=== PATIENT | female | born 1955 | race Caucasian/White ===

== ENCOUNTER 2019-12-25 09:46 | Outpatient (CLI) | payer OTHER, SELFPAY ==
--- NOTE | ~2019-12-25 | MM_ITS ---
EXAMINATION: MM screening [facility] BI w zamzam HISTORY: Screening mammogram TECHNIQUE: Craniocaudal and mediolateral oblique 3-D tomosynthesis images were obtained and synthetic 2-D images were generated. CAD analysis was submitted and interpreted. COMPARISON: 12/08/2018, 12/05/2017, 09/22/2016 bilateral digital screening mammogram examinations BREAST PARENCHYMAL COMPOSITION: There are scattered areas of fibroglandular density. FINDINGS: There is no evidence of suspicious mass, calcification, or architectural distortion to sugg est malignancy in either breast. There has been no suspicious interval change. IMPRESSION: 1. No mammographic evidence of malignancy. 2. Recommend routine screening mammography in one year. BI-RADS Category 1: Negative Reviewed, dictated and finalized at location A.
== END 2019-12-25 09:47 | disposition home or self-care (01) ==
LOC: ANHIMG 09:49
PROVIDERS: PCP Family Medicine; Visit Provider Obstetrics & Gynecology
DX: Z12.31 Encounter for screening mammogram for malignant neoplasm of breast (principal)
CPT/HCPCS: 77063; 77067

== ENCOUNTER 2021-02-26 09:57 | Outpatient (CLI) | payer OTHER, SELFPAY ==
--- NOTE | ~2021-02-26 | MM_ITS ---
EXAMINATION: MM screening [facility] BI w zamzam HISTORY: Screening TECHNIQUE: Craniocaudal and mediolateral oblique 3-D tomosynthesis images were obtained and synthetic 2-D images were generated. CAD analysis was submitted and interpreted. COMPARISON: Comparison to multiple prior studies sequentially, with oldest reviewed study dated 06/09. BREAST PARENCHYMAL COMPOSITION: There are scattered areas of fibroglandular density. FINDINGS: There is no evidence of suspicious mass, calcification, or architectural distortion to sugg est malignancy in either breast. There has been no suspicious interval change. IMPRESSION: 1. No mammographic evidence of malignancy. 2. Recommend routine screening mammography in one year. BI-RADS Category 1: Negative Reviewed, dictated and finalized at location A.
== END 2021-02-26 09:58 | disposition home or self-care (01) ==
LOC: ANHIMG 09:59
PROVIDERS: PCP Family Medicine; Visit Provider Obstetrics & Gynecology
DX: Z12.31 Encounter for screening mammogram for malignant neoplasm of breast (principal)
CPT/HCPCS: 77063; 77067

== ENCOUNTER 2022-03-03 09:54 | Outpatient (CLI) | payer OTHER, SELFPAY ==
--- NOTE | ~2022-03-03 | MM_ITS ---
EXAMINATION: MM screening [facility] BI w zamzam HISTORY: Screening mammogram TECHNIQUE: Craniocaudal and mediolateral oblique 3-D tomosynthesis images were obtained and synthetic 2-D images were generated. CAD analysis was submitted and interpreted. COMPARISON: 02/26/2021, 12/25/2019, 01/04/2019 bilateral screening mammogram examinations BREAST PARENCHYMAL COMPOSITION: There are scattered areas of fibroglandular density. FINDINGS: There is no evidence of suspicious mass, calcification, or architectural distortion to sugg est malignancy in either breast. There has been no suspicious interval change. IMPRESSION: 1. No mammographic evidence of malignancy. 2. Recommend routine screening mammography in one year. BI-RADS Category 1: Negative Reviewed, dictated and finalized at location A.
--- NOTE | ~2022-03-03 | DEXA_ITS ---
Bone Density Report Name: FRANCINE CHAND Age: 66 Sex: Female Ethnicity: White Date of : 1955 Indication: postmenopausal; screening for osteoporosis; Referring Provider: SIRI ADAMSON Study: Bone densitometry was performed. Exam Date: March 03, 2022 Accession number: [id number] Bone Density: Region BMD T-score Z-score Classification AP Spine(L2, L3, L4) 1.549 4.3 6.1 Normal Femoral Neck (Left) 0.883 0.3 1.8 Normal Total Hip (Left) 1.145 1.7 2.9 Normal Femoral Neck (Right) 0.922 0.7 2.1 Normal Total Hip (Right) 1.119 1.4 2.6 Normal Total Hip Mean 1.132 1.6 2.8 Normal World Health Organization criteria for BMD impression classify patients as: Normal (T-score at or above -1.0), Osteopenia (T-score between -1.0 and -2.5), or Osteoporosis (T-score at or below -2.5). 10-year Fracture Risk: FRAX not reported because: All T-scores for Spine Total, Hip Total, Femoral Neck at or above -1.0 Previous Exams: Region Exam Age BMD T-score BMD Change BMD Change Date g/cm2 vs Baseline vs Previous AP Spine (L2-L4) 03/03/2022 66 1.549 4.3 -0.012 (-0.8%) -0.012 (-0.8%) 06/27/2015 59 1.561 4.4 Total Hip(Left) 03/03/2022 66 1.145 1.7 -0.002 (-0.2%) -0.002 (-0.2%) 06/27/2015 59 1.147 1.7 Total Hip(Right) 03/03/2022 66 1.119 1.4 0.004 (0.4%) 0.004 (0.4%) 06/27/2015 59 1.114 1.4 *Denotes significance at 95% confidence level, LSC for AP Spine = 0.022 g/cm2, LSC for Total Hip = 0.027 g/cm2 Clinical Information Provided by Patient: Has used the following medications: Vitamin D Patient maximum height was 63 Menopause Age: 44 No regular weight bearing exercise Drinks caffeinated beverages Onset of menses at age 14 Number of children 0 Impression: The patient has normal bone mass. No significant bone loss was observed. Discussion: BONE DENSITY IS ABOVE THE MINIMUM DESIRABLE LEVEL AT ALL SKELETAL SITES TESTED. This patient?s bone mineral density is above the minimum desirable level (T-score -1.0 or better) at all sites measured. The patient should follow a healthful lifestyle (good nutrition with adequate calcium and vitamin D, and appropriate weight-bearing exercise). Follow-Up: Consider repeating this study in 5 years or sooner if there is some new clinical indication. Reported by: BELINDA on 03/03/2022 10:23:00 AM. Reviewed, dictated and finalized at alicia
== END 2022-03-03 09:55 | disposition home or self-care (01) ==
LOC: ANHIMG 09:55
PROVIDERS: PCP Family Medicine; Visit Provider Obstetrics & Gynecology
DX: Z12.31 Encounter for screening mammogram for malignant neoplasm of breast (principal); Z78.0 Asymptomatic menopausal state
CPT/HCPCS: 77063; 77067; 77080

== ENCOUNTER 2023-03-07 07:45 | Outpatient (CLI) | payer MEDICARE, SELFPAY ==
--- NOTE | ~2023-03-07 | MM_ITS ---
EXAMINATION: MM screening [facility] BI w zamzam HISTORY: Screening mammogram TECHNIQUE: Craniocaudal and mediolateral oblique 3-D tomosynthesis images were obtained and synthetic 2-D images were generated. CAD analysis was submitted and interpreted. COMPARISON: 03/03/2022, 02/26/2021, 12/25/2019 BREAST PARENCHYMAL COMPOSITION:There are scattered areas of fibroglandular density. FINDINGS: No suspicious mass, calcification, or architectural distortion are identified in either damien ast to suggest malignancy. There has been no suspicious interval change. IMPRESSION: No mammographic evidence of malignancy. Recommend routine screening mammography in one year. BI-RADS Category 1: Negative Reviewed, dictated and finalized at location .
== END 2023-03-07 07:46 | disposition home or self-care (01) ==
LOC: ANHIMG 07:46
PROVIDERS: PCP Family Medicine; Visit Provider Obstetrics & Gynecology
DX: Z12.31 Encounter for screening mammogram for malignant neoplasm of breast (principal)
CPT/HCPCS: 77063; 77067

== ENCOUNTER 2023-06-27 09:39 | Outpatient (CLI) | payer MEDICARE, SELFPAY ==
--- NOTE | 2023-07-02 17:26 | WPDPFTINT ---
PFT Procedure Performed PFT Procedure Performed Spirometry w/o Bronchodil PFT Interpretation DOS: 06/27/2023 REQUESTING: Kieran Allison APRN REASON FOR TESTING: shortness of breath PULMONARY FUNCTION TESTS Repeat ability of the FEV1 spirometry maneuver is Grade A, with optimal patient effort and cooperation. Spirometry: The FEV1 is 1.64 L, 72% predicted, mildly decreased. The FVC is 2.31 L, 79%, low end of normal. The FEV1/FVC ratio is 71%, in the normal range, no evidence of airflow obstruction. No bronchodilator was given. Flow volume loop: There were 4 flow volume loops attempted, and the final 3 were recorded. The last flow volume loop was normal. IMPRESSION: This spirometry without bronchodilator shows mild decrease in FEV1 without airflow obstruction. Compared to a full PFT on 12/30/2016 at [facility], her current FEV1 and FVC have decreased more than expected since the prior testing. The current FEV1 is 72%, 1.64 L, compared to the prior FEV1 2.07 L, 87% predicted. FVC was 2.66 L, 91%,and the current FVC is 2.31 L, 79%, a significant decrease. The FEV1/ FVC ratio was 78%, normal; current FEV1 / FVC ratio is 71%, low end of normal. The former flow volume loop showed flattening of the inspiratory limb. The current inspiratory limb is normal. THe prior study had lung volumes and DLCO, not performed on this test. In 2017, total lung capacity was 4.14 L, 88% predicted, normal. Residual volume was 1.31 L, 75%, slightly reduced. RV/TLC was 0.32, normal. There was increased airway resistance 373% predicted. DLCO was 70% predicted, and DLCO/ VA showed correction of diffusion for alveolar volume. The impression on the study was normal spirometry, normal lung volumes, no restriction or obstruction. Lashanda Cedeño MD
== END 2023-06-27 09:40 | disposition home or self-care (01) ==
PROVIDERS: PCP Family Medicine; Visit Provider Nurse Practitioner Adult Health
DX: R06.02 Shortness of breath (principal); R06.00 Dyspnea, unspecified
CPT/HCPCS: 94375

== ENCOUNTER 2023-07-25 08:06 | Outpatient (CLI) | payer MEDICARE, SELFPAY ==
--- NOTE | 2023-07-25 09:13 | ECG_ITS ---
Measurements Intervals [place] Rate: 77 P: 50 MS: 140 QRS: 49 QRSD: 103 T: 34 QT: 354 QTc: 402 Interpretive Statements SINUS RHYTHM BASELINE ARTIFACT NORMAL ECG COMPARED TO ECG 05/25/2019 11:41:35 NO SIGNIFICANT CHANGES Electronically Signed On 07-25-2023 17:14:10 DATASTAGE DEVELOPER by Mio Denise M.D.
[2023-07-25 09:50] LABS: Basophils Absolute Auto 0.1 K/mm3 (0.0-0.1); Basophils Percent Auto 0.7 % (0.2-1.2); Eosinophils Absolute Auto 0.2 K/mm3 (0-0.3); Eosinophils Percent Auto 2.7 % (0-4.4); Hematocrit 46.5 % (37.0-47.0); Hemoglobin 14.9 g/dL (12.0-15.0); Immature Granulocyte Absolute 0.02 K/mm3 (0.00-0.031); Immature Granulocyte Percent A 0.2 % (0-0.5); Lymphocytes Absolute Auto 2.27 K/mm3 (0.9-3.2); Lymphocytes Percent Auto 27.5 % (18.3-44.2); Mean Corpuscular Hemoglobin 28.7 pg (26-34); Mean Corpuscular Volume 89.6 fl (80-100); Mean Platelet Volume 10.2 fl (7.4-10.4); Monocytes Absolute Auto 0.6 K/mm3 (0.1-0.6); Monocytes Percent Auto 6.9 % (2.6-8.5); Neutrophils Absolute Auto 5.1 K/mm3 (1.3-6.7); Platelet Count Result 224 k/mm3 (150-375); Red Blood Count 5.19 M/mm3 (4.2-5.4); Red Cell Distribution Width 14.9 % (11.5-14.5); White Blood Count 8.3 K/mm3 (4.5-10.0)
[2023-07-25 10:53] LABS: Urine Cotinine NEGATIVE
== END 2023-07-25 08:07 | disposition home or self-care (01) ==
LOC: ANHSURGERY 08:09
PROVIDERS: PCP Family Medicine; Visit Provider Orthopaedic Surgery
DX: Z01.818 Encounter for other preprocedural examination (principal); M17.11 Unilateral primary osteoarthritis, right knee
CPT/HCPCS: 80307; 85025; 86850; 86900; 86901; 87081; 93005

== ENCOUNTER 2023-08-02 00:29 | Day surgery (SDC) | payer MEDICARE, OTHER, SELFPAY ==
--- NOTE | 2023-07-25 07:38 | PC.NURSE ---
PRE-OP INSTRUCTIONS, PLEASE READ CAREFULLY Report to the Outpatient Waiting Room, entrance under the green pavilion located off [facility], at time _0600_ on date _08/02/23_. Planned Procedure Time: _0730_. PACK A SMALL OVERNIGHT BAG AND LEAVE IT IN THE CAR ALONG WITH YOUR WALKER Time changes happen often and if your time is changed the preop area will call you the afternoon before. - You and your visitor will be asked to self-screen and do not enter if you have any COVID symptoms. - A mask is optional within the hospital at this time. -VISITING HOURS 8AM-8PM Patients may have clear liquids (water, carbonated beverages, clear teas, apple juice) until 3 hours prior to surgery (0430 AM) with a maximum of 20 ounces. - No food from midnight until time of surgery Take the following medications with a SIP of water the morning of surgery: _AMLODIPINE, CARVEDILOL, _ DO NOT STOP ANY OF YOUR OTHER PRESCRIPTION MEDICATIONS PRIOR TO SURGERY ?EXCEPT THE FOLLOWING Medications to discontinue per DR. HUERTA -_ASPIRIN 5 DAYS PRIOR TO SURGERY, Dater to take last dose 07/27/23_ Medications to discontinue per ANESTHESIA - _MULTIVITAMIN & SUPPLEMENTS 3 DAYS PRIOR TO SURGERY, Date to take last dose 07/29/23_ Please no make-up, nail mohawk, hairspray, perfume, deodorant, or body powder the day of surgery. No jewelry (including any body piercings) or valuables the day of surgery, leave them at home. Please take a shower or bath the night before, or the morning of, surgery with an antibacterial soap. Wear comfortable, loose fitting clothing. - Jewelry must be removed prior to entering the operating room. Rings and piercings that are not removed may be cut off. - The hospital will not accept responsibility for valuables. - Please leave all valuables, including medications, at home the day of surgery. If you are going home after surgery, a licensed delivery driver must drive you home. - NO public transportation without another adult if you receive anesthesia. - We recommend that an adult stay with you for 24 hours following discharge. - We also recommend that you do not drive, make important decision, drink alcoholic beverages, or take any drugs that were not prescribed by your health care provider for at least 24 hours after your discharge time. Follow any additional instructions given to you from your surgeon. If you or anyone in your household have experienced Covid symptoms in the past week, please notify your surgeon or the nurse liaison at the phone number below for possible testing. Instructions given to _PATIENT_and asked if any additional questions and then verbalized understanding. Patient advised to call surgeon office or pre surgery nurse liaison [phone] if any additional questions.
[2023-07-25 08:46] VITALS: BP 126/58; PULSE 80; RESP 18; TEMP 36.6; O2SAT 96; BMI 36.8
--- NOTE | 2023-07-28 08:21 | PM.IMHP ---
H&P: HPI History of Present Illness Date/Time: 07/28/23 08:21 Chief Complaint: Right knee osteoarthritis. Narrative: Patient presents knee pain right. She has arthritic right knee and has failed conservative treatment. She underwent ACL reconstruction many many years ago and has developed arthritis on the right knee. The right knee is [id number] with varus deformity. She has failed conservative treatment he would like to consider knee replacement surgery at this point. Review of Systems Musculoskeletal: Musculoskeletal: Reports arthralgias and Reports joint swelling [facility] Past Medical History Medical History Allergies Depression HLD (hyperlipidemia) HTN (hypertension) IDDM (insulin dependent diabetes mellitus) Osteoarthritis Skin cancer Surgical History Surgical History (Updated 06/20/23 @ 08:01 by Rossi Mason CMA) History of repair of anterior cruciate ligament of left knee (~2002) History of repair of anterior cruciate ligament of right knee (~1992) History of tonsillectomy and adenoidectomy Hx of hand surgery S/P eye surgery S/P myomectomy Status post surgical removal of malignant neoplasm of skin Status post total left knee replacement (~2018) [place] teeth removed Family History Family History Father Hypertension Family history of diabetes mellitus in first degree relative Family history of renal failure Family history of kidney disease Mother Patient's mother is Family history of chronic obstructive pulmonary disease Grandparent Family history of dementia Sibling Family history of malignant neoplasm of breast in first degree relative Social History Social History (Updated 06/20/23 @ 08:01 by Rossi Mason CMA) Smoking status: Never smoker Second hand tobacco smoke exposure: No Alcohol intake: never Substance use: never Substance use type: does not use Lack of Transportation: No Lack of Food: Never True Current Housing: I Have Housing Concerned About Future Housing: No Difficulty Paying Gas/Electric Bills: No Difficulty Paying for Meds: No Currently Unemployed: No Education: Master's Degree or Higher Difficulty w/ Childcare or Family Care: No Living arrangements: alone Occupation/Education: occupation 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 Spiritual care concerns: No Meds Home Medications and Allergies Home Medications Medication Instructions Recorded Confirmed Type [place]'s wort 300 mg capsule 300 mg PO DAILY 06/07/19 07/25/23 History amlodipine 10 mg tablet 10 mg PO DAILY 06/07/19 07/25/23 History carvedilol 25 mg tablet 25 mg PO BID 06/07/19 07/25/23 History cholecalciferol (vitamin D3) 25 1,000 unit PO BID 06/07/19 07/25/23 History mcg (1,000 unit) tablet lisinopril 40 mg tablet 40 mg PO BID 06/07/19 07/25/23 History metformin 1,000 mg tablet 1,000 mg PO BID 06/07/19 07/25/23 History multivitamin (Daily Multi-Vitamin 1 tablet PO DAILY 06/07/19 07/25/23 History tablet) omega-3 1,050 we-dxw-[id number]-dpa-fish 1 cap PO DAILY 06/07/19 07/25/23 History oil 1,200 mg capsule ([place]-3 2100) aspirin 325 mg tablet,delayed 325 mg PO DAILY 09/24/21 07/25/23 History release pyridoxine (vitamin B6) 100 mg 100 mg PO DAILY 09/24/21 07/25/23 History tablet hydrochlorothiazide 12.5 mg tablet 25 mg PO BID 06/06/23 07/25/23 History insulin glargine 100 unit/mL 80 unit subcut QAM 06/06/23 07/25/23 History subcutaneous solution (Lantus U-100 Insulin) pravastatin 40 mg tablet 40 mg PO DAILY 06/20/23 07/25/23 History coenzyme Q10 30 mg capsule 30 mg PO DAILY 07/25/23 07/25/23 History insulin glulisine U-100 100 10 unit subcut TID 07/25/23 07/25/23 History unit/mL subcutaneous solution (Apidra U-100 Insulin) tirzepatide 5 mg/0.5 mL 5 mg subcut WEEKLY 07/25/23 07/25/23 History
[2023-08-02] VITALS (14 sets, daily range): BP systolic 105–133; BP diastolic 48–74; PULSE 78–85; RESP 14–18; TEMP 36.2–37.1; O2SAT 90–98; BMI 38.4
--- NOTE | ~2023-08-02 | XR_ITS ---
EXAMINATION: [id number] DATE: 08/02/2023 10:32 INK BLENDER INDICATION: Right total knee arthroplasty TECHNIQUE: 2 views right knee FINDINGS: There is a right total knee arthroplasty in expected position. Subcutaneous gas with fluid and air in the joint and overlying skin rommel are consistent with recent surgery. No evidence of p eriprosthetic fracture. IMPRESSION: 1. Recent right total knee arthroplasty. Reviewed, dictated and finalized at location L. BLENDER
[2023-08-02] MEDS: ACETAMINOPHEN 500 MG TABLET 1000 MG PO (06:16)
[2023-08-02 06:21] LABS: Glucose Point of Care 111 mg/dl (65-105)
[2023-08-02] MEDS: LACTATED RINGERS 1,000 ML 30 ML IV CONT ×2 (06:30→10:13)
[2023-08-02] MEDS: VANCOMYCIN 1,500 MG/NS 500 ML BAG 250 MG IVPB (06:35)
--- NOTE | 2023-08-02 06:50 | WPDHPUPDATE1 ---
History and Physical Update Update Date/Time: 08/02/23 06:50 History and Physical has been reviewed, including an updated exam of the patient. There are NO changes in the patient's condition. Risks, benefits, and alternatives have been discussed and questions answered. Patient agrees to proceed with procedure.
[2023-08-02] MEDS: TRANEXAMIC ACID 1,000MG/ISO100 1,000 MG/100 ML BAG 200 MG IVPB (07:02)
--- NOTE | 2023-08-02 07:13 | WPDANESEPPF ---
Anes - Initial Pre Proc Eval Procedure: Operation Date: 08/02/23 07:30 Proposed Procedures p Right Total Knee Arthroplasty - Anson Dumont MD Date/Time: 08/02/23 07:13 Surgeon: Anson Dumont MD Pre Op Diagnosis: Right Knee O.A Patient Data Age: 67 Gender: F Height: 1.6 m Weight: 93.7 kg Last Vital Signs Temp 36.2 C L 08/02/23 06:22 Pulse 82 08/02/23 06:22 Resp 16 08/02/23 06:22 BP 133/74 08/02/23 06:22 Pulse Ox 95 08/02/23 06:22 O2 Del Method Room Air 08/02/23 06:22 Allergies Allergy/AdvReac Type Severity Reaction Status Date / Time losartan Allergy Severe RASH Verified 08/02/23 06:09 adhesive tape Allergy Intermediate PLASTIC Verified 08/02/23 06:09 TAPE= RASH Bleach (Sodium Hypochlorite) Allergy Unknown RESPIATIOR Verified 08/02/23 06:09 DISTRESS latex Allergy Unknown ,Nausea, Verified 08/02/23 06:09 RESPIATORY DISTRESS naproxen Allergy Unknown DIFFICULTY Verified 08/02/23 06:09 WALKING,UNABLE TO RECALL omeprazole Allergy Unknown Rash,UNABLE Verified 08/02/23 06:09 TO RECALL propranolol Allergy Unknown UNABLE TO Verified 08/02/23 06:09 RECALL valsartan Allergy Unknown Rash Verified 08/02/23 06:09 amlodipine [From Exforge] AdvReac Rash Verified 08/02/23 06:09 Home Medications Medication Instructions Recorded Confirmed Type Luiz's wort 300 mg capsule 300 mg PO DAILY 06/07/19 08/02/23 History amlodipine 10 mg tablet 10 mg PO DAILY 06/07/19 08/02/23 History carvedilol 25 mg tablet 25 mg PO BID 06/07/19 08/02/23 History cholecalciferol (vitamin D3) 25 1,000 unit PO BID 06/07/19 08/02/23 History mcg (1,000 unit) tablet lisinopril 40 mg tablet 40 mg PO BID 06/07/19 08/02/23 History metformin 1,000 mg tablet 1,000 mg PO BID 06/07/19 08/02/23 History multivitamin (Daily Multi-Vitamin 1 tablet PO DAILY 06/07/19 08/02/23 History tablet) omega-3 1,050 [id number]-fok-mkx-dpa-fish 1 cap PO DAILY 06/07/19 08/02/23 History oil 1,200 mg capsule ([place]-3 2100) aspirin 325 mg tablet,delayed 325 mg PO DAILY 09/24/21 08/02/23 History release pyridoxine (vitamin B6) 100 mg 100 mg PO DAILY 09/24/21 08/02/23 History tablet hydrochlorothiazide 12.5 mg tablet 25 mg PO BID 06/06/23 08/02/23 History insulin glargine 100 unit/mL 80 unit subcut QAM 06/06/23 08/02/23 History subcutaneous solution (Lantus U-100 Insulin) pravastatin 40 mg tablet 40 mg PO DAILY 06/20/23 08/02/23 History coenzyme Q10 30 mg capsule 30 mg PO DAILY 07/25/23 08/02/23 History insulin glulisine U-100 100 10 unit subcut TID 07/25/23 08/02/23 History unit/mL subcutaneous solution (Apidra U-100 Insulin) tirzepatide 5 mg/0.5 mL 5 mg subcut WEEKLY 07/25/23 08/02/23 History subcutaneous pen injector (Mounjaro) rivaroxaban 10 mg tablet (Xarelto) 10 mg PO DAILY PE prophylaxis 07/27/23 Rx status post joint replacement #14 tabs Laboratory Tests 08/02/23 06:19 POC Capillary Glucose 111 H mg/dl (65-105) Patient hx anesthesia problems: none Family hx anesthesia problems: none Results Review: All pre-operative results and documents have been reviewed as part of the pre-operative evaluation. [facility] Past Medical History Medical History Allergies Depression HLD (hyperlipidemia) HTN (hypertension) IDDM (insulin dependent diabetes mellitus) Osteoarthritis Skin cancer Surgical History Surgical History (Updated 06/20/23 @ 08:01 by Rossi Mason CMA) History of repair of anterior cruciate ligament of left knee (~2002) History of repair of anterior cruciate ligament of right knee (~1992) History of tonsillectomy and adenoidectomy Hx of hand surgery S/P eye surgery S/P myomectomy Status post surgical removal of malignant neoplasm of skin Status post total left knee replacement (~2018) [place] teeth removed Family History Family History (Reviewed 06/20/23
--- NOTE | 2023-08-02 07:28 | WPDANESPNB ---
Anes - Peripheral Nerve Block Date/Time: 08/02/23 07:28 I have discussed with the patient/family/POA the placement of a peripheral nerve block for post-operative pain management, including associated risks, benefits, complications, and side effects. Alternative methods of post-operative analgesia were detailed. Questions were solicited and answers provided to the satisfaction of the patient/family/POA. Time-Out: A pre-procedural Time-Out was completed immediately before starting the procedure and confirmed: Patient Identification, Site, Procedure, Patient Position and the Availability of Requisite Equipment. Clinical Indications: Acute post-operative pain management requested by the operative surgeon. Nerve Block Insertion Note Anes-nerve block: adductor canal right Patient position: supine Skin prep: chlorhexidine Needle: 22 gauge, stimulating, insulated echogenic needle. Needle length: 80 mm Technique: ultrasound Injectate: bupivacaine 0.5% with epi 5 mcg/ml (30cc - no epi) Observations: tolerated well Complications: none Procedure start time:: 719 Procedure end time:: 722
[2023-08-02] MEDS: ceFAZolin 2 GM/D5W 50 ML 2 GM/50 ML BAG IVPB ×3 (07:30→23:07)
[2023-08-02] MEDS: GENTAMICIN BONE CEMENT REFOBACIN 1 EACH TOPICAL (09:08)
--- NOTE | 2023-08-02 09:44 | W.PM.PROC2 ---
Procedure Note - Detailed Date of Procedure 08/02/23 Pre-op Diagnosis Right Knee Osteoarthritis Post-op Diagnosis Same Procedure Performed Right Total Knee Surgeon Anson Dumont MD Anesthesia General Indications Pain and arthitis Description of Procedure The patient was brought to the operating room #7. General anesthetic was administered. Placed on the operating table and sterilely prepped and draped in usual manner. A longitudinal incision was made. Tourniquet inflated to 300 mmHg for a total of 65 minutes. Dissection carried down to the fascia. Medial parapatellar incision was made and the patella subluxated laterally. Patella cut from 28 to 16 mm and sized for a 34 mm button. The tibia cut perpendicular to the long axis and femur cut in 5 degrees of valgus, a 62.5 femur trialed. 63 tibia was felt to fit the best. The soft tissue balanced, hemostasis obtained. All [address], 63 tibia, 62.5 femur, 34 mm patella, and 14AS mm poly. Motion was 0-125 degrees with good stability in both flexion and extension. The wound was closed with #2 Vicryl, 2-0 Vicryl and rommel. During the case the distal screw was removed as was the intramedullary screw in the tibia. The femoral screw did not seem to be in the way and was not identified. [employer] Estimated Blood Loss 200 Drains No Packing No Pathology None sent Complications No immediate complications Condition Stable Disposition PACU [facility] Billing Surgery - Charge Forward: Surgery Billing (Right Total Knee [id number])
[2023-08-02] MEDS: fentaNYL CITRATE INJ (*CRX) 100 MCG/2 ML VIAL 25 MCG IV PUSH (10:18)
[2023-08-02 10:24] LABS: Glucose Point of Care 174 mg/dl (65-105)
--- NOTE | 2023-08-02 11:40 | ADMGEN ---
This patient, Cira Myrick, was admitted to Medical Room 248-. Patient/family oriented to hospital policies and general routines including ID bracelet, bed and alarms, visiting hours, pain management, procedures, bathroom and other care routines, personal items, smoking policy, room service/diet, and visiting hours. Information on how to activate the Rapid Response Team has been discussed. Patient/Family are encouraged to report perceived risks to care and to ask questions if they do not understand what they are told or what they should do.
[2023-08-02 12:14] LABS: Glucose Point of Care 204 mg/dl (65-105)
[2023-08-02] MEDS: SODIUM CHLORIDE 0.9% IV 1,000 ML 125 ML IV CONT (12:21)
[2023-08-02] MEDS: ASPIRIN 325 MG ENTERIC TABLET PO (12:22)
[2023-08-02] MEDS: PRAVASTATIN SODIUM 20 MG TABLET 40 MG PO (12:22)
[2023-08-02] MEDS: HYDROcodone/acetaminophen (*CRX) 7.5-325 MG TABLET 1 TAB PO ×2 (12:23→23:05)
[2023-08-02] MEDS: INSULIN ASPART (*BKC) 100 UNITS/ML 10 UNITS SUB-Q ×2 (12:24→17:13)
--- NOTE | 2023-08-02 13:51 | WPDCN ---
Assessment and Plan Assessment and plan (1) Primary osteoarthritis of right knee: Code(s): M17.11 - Unilateral primary osteoarthritis, right knee Status: Acute Assessment and Plan: Postoperative day 0 status post right total knee arthroplasty. Wound care, pain control, and DVT prophylaxis deferred to Dr. Dumont. Check baseline labs in a.m. (2) Insulin dependent type 2 diabetes mellitus: Code(s): E11.9 - Type 2 diabetes mellitus without complications; Z79.4 - intermediate card tender (current) use of insulin Status: Acute Assessment and Plan: Resume basal insulin. Initiate sliding scale insulin, Accu-Cheks, and hypoglycemic protocol. Check hemoglobin A1c. (3) Hypertension: Code(s): I10 - Essential (primary) hypertension Status: Acute Assessment and Plan: Blood pressures were reviewed and they have been stable postoperatively. Her antihypertensives will be reviewed and resumed as appropriate. (4) Hyperlipidemia: Code(s): E78.5 - Hyperlipidemia, unspecified Status: Acute Assessment and Plan: Continue pravastatin check LFTs in a.m. Plan Thank you for allowing us to participate in this patient's care. Please do not hesitate to contact us with any questions. HPI Data of Consult Date/Time: 08/02/23 13:50 Requesting Physician: Anson Dumont MD Consult Narrative Reason for consult: Medical management. Narrative: This is a 67-year-old female with osteoarthritis, hypertension, hyperlipidemia, and insulin-dependent type 2 diabetes mellitus whom the hospitalist service has been consulted for help managing her medical conditions postoperatively. She reports longstanding pain in her right knee which has not been amenable to conservative outpatient treatment and she elected for replacement today per Dr. Dumont. Her surgery was performed under general anesthesia with no immediate complications documented an estimated blood loss of 200 mL. She had some nausea postoperatively and has not had much to eat. Her pain is okay when she is resting however she has quite a bit of discomfort when up walking. She denies fever, chills, sweats, vomiting, chest pain, and shortness a breath. She also denies paresthesias, skin color, and temperature changes distal to the surgical site. On discharge she will be going home where she lives alone and her niece will be helping out as needed. She believes her hypertension and diabetes are well controlled on medication. I do not see a recent Hemoglobin A1c in the computer, the last was 7.5% May 2019. No history of venous thromboembolism. Review of Systems Review of Systems: Twelve systems were reviewed and are negative except for as per HPI. [facility] Past Medical History Medical History Allergies Depression Hyperlipidemia Hypertension Insulin dependent type 2 diabetes mellitus Osteoarthritis Skin cancer Surgical History Surgical History History of cataract extraction History of hand surgery History of myomectomy History of repair of anterior cruciate ligament of left knee (~2002) History of repair of anterior cruciate ligament of right knee (~1992) History of right knee joint replacement (08/02/23) History of tonsillectomy and adenoidectomy Status post surgical removal of malignant neoplasm of skin Status post total left knee replacement (~2018) [place] teeth removed Family History Family History Father Hypertension Family history of diabetes mellitus in first degree relative Family history of renal failure Family history of kidney disease Mother Patient's mother is Family history of chronic obstructive pulmonary disease Grandparent Family history of dementia Sibling Family history of malignant neoplasm of breast in first d
[2023-08-02] MEDS: lisinopriL 20 MG TABLET 40 MG PO (17:05)
[2023-08-02] MEDS: hydroCHLOROthiazide 12.5 MG CAPSULE 25 MG PO (17:05)
[2023-08-02] MEDS: RIVAROXABAN 10 MG TABLET PO (17:06)
[2023-08-02] MEDS: CELECOXIB 200 MG CAPSULE PO (17:06)
[2023-08-02] MEDS: carvediloL 25 MG TABLET PO (17:06)
[2023-08-02 17:07] LABS: Glucose Point of Care 194 mg/dl (65-105)
[2023-08-02 20:39] LABS: Glucose Point of Care 180 mg/dl (65-105)
[2023-08-02] MEDS: FAMOTIDINE 20 MG TABLET PO (23:05)
[2023-08-03 01:11] VITALS: BP 114/54; PULSE 85; RESP 18; TEMP 37.1; O2SAT 91
[2023-08-03] MEDS: HYDROcodone/acetaminophen (*CRX) 7.5-325 MG TABLET 1 TAB PO ×2 (04:35→09:07)
[2023-08-03 05:16] VITALS: BP 114/85; PULSE 90; RESP 18; TEMP 36.8; O2SAT 98
[2023-08-03 05:37] LABS: Basophils Percent Auto 0.3 % (0.2-1.2); Hematocrit 37.5 % (37.0-47.0); Hemoglobin 11.9 g/dL (12.0-15.0); Immature Granulocyte Absolute 0.05 K/mm3 (0.00-0.031); Immature Granulocyte Percent A 0.5 % (0-0.5); Lymphocytes Absolute Auto 1.59 K/mm3 (0.9-3.2); Lymphocytes Percent Auto 15.4 % (18.3-44.2); Mean Corpuscular HGB Conc 31.7 g/dl (32-36); Mean Corpuscular Hemoglobin 28.7 pg (26-34); Mean Corpuscular Volume 90.6 fl (80-100); Mean Platelet Volume 10.3 fl (7.4-10.4); Monocytes Absolute Auto 0.9 K/mm3 (0.1-0.6); Monocytes Percent Auto 8.3 % (2.6-8.5); Neutrophils Absolute Auto 7.8 K/mm3 (1.3-6.7); Neutrophils Percent Auto 75.5 % (45.5-73.1); Platelet Count Result 189 k/mm3 (150-375); Red Blood Count 4.14 M/mm3 (4.2-5.4); White Blood Count 10.3 K/mm3 (4.5-10.0)
[2023-08-03 05:47] LABS: Alanine Aminotransferase 19 U/L (6-35); Albumin Level 3.4 g/dL (3.5-5.1); Alkaline Phosphatase 56 U/L (38-126); Anion Gap 7 mmol/L (8-16); Aspartate Amino Transferase 25 U/L (14-36); Bilirubin,Total 0.4 mg/dL (0.2-1.3); Blood Urea Nitrogen 17 mg/dL (7-17); Calcium 7.9 mg/dL (8.4-10.2); Carbon Dioxide 28 mmol/L (22-30); Chloride 99 mmol/L (98-107); Estimated CRCL calculation 68 ml/min; Estimated Glomerular Filt Rate > 60; Glucose 250 mg/dL (65-110); Magnesium 1.9 mg/dL (1.6-2.3); Potassium 4.1 mmol/L (3.4-5.0); Sodium 134 mmol/L (137-145)
[2023-08-03] MEDS: traMADol HCL (*CRX) 50 MG TABLET PO ×2 (06:12→13:45)
--- NOTE | 2023-08-03 06:50 | PM.PNORT ---
Progress Note: A&P Assessment and Plan (1) Primary osteoarthritis of right knee: Code(s): M17.11 - Unilateral primary osteoarthritis, right knee Status: Acute Assessment and Plan: Patient underwent total knee arthroplasty right. Well ambulate her today assuming she does well she can be dismissed home dismissed medication [place] Xarelto and doxycycline. Subjective Subjective Date/Time Seen: 08/03/23 06:50 Principal diagnosis: Postop day 1 status post right total knee arthroplasty. Interval history: Patient underwent total knee arthroplasty. She is moving her toes well pain is tolerable at this point. Review of Systems Musculoskeletal: Musculoskeletal: Reports arthralgias and Reports joint swelling Exam Narrative: Neurologically she appears to be intact dressing is intact at this point. She is able to ambulate with some difficulty. Objective Data Vital Signs Vital Signs: Vital Signs - 24 hr 08/02/23 10:13 08/02/23 10:25 08/02/23 10:40 Temperature 98.8 F Pulse Rate 82 83 82 Respiratory Rate 14 14 14 Blood Pressure 129/58 L 118/58 L 121/60 Pulse Oximetry 96 94 92 Oxygen Delivery Simple Face Mask Nasal Cannula Nasal Cannula Oxygen Flow Rate 8 2 2 08/02/23 10:55 08/02/23 11:10 08/02/23 11:25 Temperature Pulse Rate 82 82 84 Respiratory Rate 14 14 14 Blood Pressure 111/60 109/51 L 110/60 Pulse Oximetry 92 94 95 Oxygen Delivery Nasal Cannula Nasal Cannula Room Air Oxygen Flow Rate 2 3 08/02/23 11:40 08/02/23 11:40 08/02/23 11:55 Temperature 97.6 F 97.6 F Pulse Rate 85 82 Respiratory Rate 14 14 14 Blood Pressure 111/48 L 107/52 L Pulse Oximetry 95 94 90 Oxygen Delivery Room Air Oxygen Flow Rate 08/02/23 12:20 08/02/23 13:20 08/02/23 15:03 Temperature 97.6 F 97.7 F Pulse Rate 81 79 Respiratory Rate 15 15 Blood Pressure 133/58 L 112/58 L Pulse Oximetry 98 95 Oxygen Delivery Room Air Oxygen Flow Rate 08/02/23 17:06 08/02/23 17:16 08/02/23 21:16 Temperature 97.7 F 98.2 F Pulse Rate 84 78 84 Respiratory Rate 15 18 Blood Pressure 105/64 130/58 L Pulse Oximetry 98 91 Oxygen Delivery Oxygen Flow Rate 08/03/23 01:11 08/03/23 05:16 Temperature 98.8 F 98.3 F Pulse Rate 85 90 Respiratory Rate 18 18 Blood Pressure 114/54 L 114/85 Pulse Oximetry 91 98 Oxygen Delivery Oxygen Flow Rate Intake/Output Intake/Output: Intake & Output 07/31/23 08/01/23 08/02/23 08/03/23 23:59 23:59 23:59 23:59 Intake Total 2510 250 Output Total 500 450 Balance 2009 Meds/Results Medications: Active Medications Generic Name Dose Route Start Last Admin Trade Name Freq PRN Reason Stop Dose Admin Hydrocodone Bitart/Acetaminophen 1 tab 08/02/23 11:31 08/03/23 04:35 Hydrocodone/Acetaminophen (*Crx) 7.5-325 Mg Tablet PO 1 tab Q6H PRN Administration Pain Rated 7-10 Amlodipine Besylate 10 mg 08/03/23 09:00 Amlodipine Besylate 5 Mg Tablet PO DAILY LAURE Aspirin 325 mg 08/02/23 13:00 08/02/23 12:22 Aspirin 325 Mg Enteric Tablet PO 325 mg DAILY LAURE Administration Carvedilol 25 mg 08/03/23 09:00 Carvedilol 25 Mg Tablet PO Q12HR LAURE Celecoxib 200 mg 08/02/23 17:00 08/02/23 17:06 Celecoxib 200 Mg Capsule PO 200 mg BIDWM LAURE Administration Cyclobenzaprine HCl 10 mg 08/02/23 11:31 Cyclobenzaprine Hcl 10 Mg Tablet PO Q8H PRN Spasms Dextrose 12.5 gm 08/02/23 13:57 Dextrose 50% 25 Gm/50 Ml Syringe IV PUSH PRN PRN Hypoglycemia Protocol Diphenhydramine HCl 25 mg 08/02/23 11:31 Diphenhydramine Hcl Inj 50 Mg/Ml Vial IV PUSH Q6H PRN Itching Famotidine 20 mg 08/02/23 21:00 08/02/23 23:05 Famotidine 20 Mg Tablet PO 20 mg Q12HR LAURE Administration Glucagon 1 mg 08/02/23 13:57 Glucagon For Inj 1 Mg Vial IM PRN PRN Hypoglycemia Protocol Glucose 15 gm 08/02/23 13:57 Glucose Oral Gel 15 Gm Of
--- NOTE | 2023-08-03 06:58 | PM.DS ---
DS: Admitting Diagnosis Discharge Date 08/02/2023 Admitting Diagnosis Osteoarthritis right knee DS: Discharge Diagnosis Discharge Diagnosis Plan Total knee arthroplasty for osteoarthritis right knee DS: Summary Hospital Course Hospital Course: Patient underwent total knee arthroplasty on the right for osteoarthritis. She has done well postoperatively can be dismissed home at this point. She is wiggling her toes at this time unable to ambulate. Time Spent with Patient Time attestation: Total time spent providing and/or coordinating discharge services: Exam Narrative: Dressings intact. Neurologically she is intact to move her toes up and down. She is able ambulate. DS: Data Data Completed and Pending Labs on day of discharge: Labs from last 24 hours 08/03/23 08/02/23 08/02/23 05:13 20:20 17:58 WBC 10.3 H RBC 4.14 L Hgb 11.9 L D Hct 37.5 MCV 90.6 MCH 28.7 MCHC 31.7 L RDW 15.0 H Plt Count 189 MPV 10.3 Immature Gran % (Auto) 0.5 Neut % (Auto) 75.5 H Lymph % (Auto) 15.4 L Banks % (Auto) 8.3 Eos % (Auto) 0.0 Baso % (Auto) 0.3 Lymph # (Auto) 1.59 Banks # (Auto) 0.9 H Eos # (Auto) 0.0 Baso # (Auto) 0.0 Abs Immat Gran (auto) 0.05 H Absolute Neuts (auto) 7.8 H Absolute Nucleated RBC 0.0 Nucleated RBC % 0.0 Sodium 134 L Potassium 4.1 Chloride 99 Carbon Dioxide 28 Anion Gap 7 L BUN 17 Creatinine 0.80 Estim Creat Clear Calc 68 Estimated GFR > 60 Glucose 250 H POC Capillary Glucose 180 H Hemoglobin A1c 7.0 H Calcium 7.9 L Magnesium 1.9 Total Bilirubin 0.4 Direct Bilirubin 0.0 AST 25 ALT 19 Alkaline Phosphatase 56 Total Protein 6.0 L Albumin 3.4 L 08/02/23 08/02/23 08/02/23 16:47 12:09 10:22 WBC RBC Hgb Hct MCV MCH MCHC RDW Plt Count MPV Immature Gran % (Auto) Neut % (Auto) Lymph % (Auto) Banks % (Auto) Eos % (Auto) Baso % (Auto) Lymph # (Auto) Banks # (Auto) Eos # (Auto) Baso # (Auto) Abs Immat Gran (auto) Absolute Neuts (auto) Absolute Nucleated RBC Nucleated RBC % Sodium Potassium Chloride Carbon Dioxide Anion Gap BUN Creatinine Estim Creat Clear Calc Estimated GFR Glucose POC Capillary Glucose 194 H 204 H 174 H Hemoglobin A1c Calcium Magnesium Total Bilirubin Direct Bilirubin AST ALT Alkaline Phosphatase Total Protein Albumin Discharge Plan Discharge Patient Disposition: Home, Self-Care Discharge Instructions: Anson Dumont MD [address] [place] [address] POST-OPERATIVE DISCHARGE INSTRUCTIONS TOTAL KNEE ARTHROPLASTY 1. When resting, do not rest in the chair.When resting, lie on your back, with back flat on the couch or bed, with leg elevated above heart to minimize swelling. You may put a pillow under your head. . Significant swelling could indicate a blood clot and if this occurs call the office (or go to the ER) to have a venous ultrasound. Therefore, do not rest in a chair. 2. At least five times a day spend several minutes stretching your knee into flexion while sitting in the chair and also stretching your knee out straight The abilities to bend your knee fulling and straighten your knee fully are two most important knee functions to focus on during your recovery. 3. It is ok to sit in chair to eat, use the toilet and receive a guest and to do your stretching exercises, but, sitting in a chair will cause your leg to swell. Therefore, avoid additional time sitting in the chair. and don't rest in the chair. 4. Wound Care: Nursing will give you an additional Mepilex dressing at the time of discharge. Patient to remove the dressing and apply a new Mepilex dressing at home 7 days after surgery and leave the dressing on until seen in office.
--- NOTE | 2023-08-03 07:46 | WPDANESPN ---
Anes - Prog Note Post-Op Date/Time: 08/03/23 07:46 Cardiovascular status: normal Respiratory status: normal Airway patency: baseline Mental status: baseline Post-Op hydration status: normal Vital Signs: Last Vital Signs Temp 36.8 C 08/03/23 05:16 Pulse 90 08/03/23 05:16 Resp 18 08/03/23 05:16 BP 114/85 08/03/23 05:16 Pulse Ox 98 08/03/23 05:16 O2 Del Method Room Air 08/02/23 15:03 O2 Flow Rate 3 08/02/23 11:10 Pain Score (VAS): 10/15 I/O: Intake & Output 08/02/23 08/02/23 08/03/23 15:59 23:59 07:59 Intake Total 1050 1460 250 Output Total 500 450 Balance 1050 960 -200 Laboratory Tests 08/03/23 05:13 08/03/23 05:13 08/02/23 08/02/23 08/02/23 10:22 12:09 16:47 WBC RBC Hgb Hct MCV MCH MCHC RDW Plt Count MPV Immature Gran % (Auto) Neut % (Auto) Lymph % (Auto) Centre % (Auto) Eos % (Auto) Baso % (Auto) Lymph # (Auto) Centre # (Auto) Eos # (Auto) Baso # (Auto) Abs Immat Gran (auto) Absolute Neuts (auto) Absolute Nucleated RBC Nucleated RBC % Sodium Potassium Chloride Carbon Dioxide Anion Gap BUN Creatinine Estim Creat Clear Calc Estimated GFR Glucose POC Capillary Glucose 174 H 204 H 194 H Hemoglobin A1c Calcium Magnesium Total Bilirubin Direct Bilirubin AST ALT Alkaline Phosphatase Total Protein Albumin 08/02/23 08/02/23 08/03/23 17:58 20:20 05:13 WBC 10.3 H RBC 4.14 L Hgb 11.9 L D Hct 37.5 MCV 90.6 MCH 28.7 MCHC 31.7 L RDW 15.0 H Plt Count 189 MPV 10.3 Immature Gran % (Auto) 0.5 Neut % (Auto) 75.5 H Lymph % (Auto) 15.4 L Centre % (Auto) 8.3 Eos % (Auto) 0.0 Baso % (Auto) 0.3 Lymph # (Auto) 1.59 Centre # (Auto) 0.9 H Eos # (Auto) 0.0 Baso # (Auto) 0.0 Abs Immat Gran (auto) 0.05 H Absolute Neuts (auto) 7.8 H Absolute Nucleated RBC 0.0 Nucleated RBC % 0.0 Sodium 134 L Potassium 4.1 Chloride 99 Carbon Dioxide 28 Anion Gap 7 L BUN 17 Creatinine 0.80 Estim Creat Clear Calc 68 Estimated GFR > 60 Glucose 250 H POC Capillary Glucose 180 H Hemoglobin A1c 7.0 H Calcium 7.9 L Magnesium 1.9 Total Bilirubin 0.4 Direct Bilirubin 0.0 AST 25 ALT 19 Alkaline Phosphatase 56 Total Protein 6.0 L Albumin 3.4 L Post-procedural complaints: none Patient Feedback: Patient satisfied with anesthetic care.
[2023-08-03 08:36] LABS: Glucose Point of Care 233 mg/dl (65-105)
[2023-08-03] MEDS: ceFAZolin 2 GM/D5W 50 ML 2 GM/50 ML BAG IVPB (08:50)
[2023-08-03] MEDS: hydroCHLOROthiazide 12.5 MG CAPSULE 25 MG PO (08:51)
[2023-08-03] MEDS: PRAVASTATIN SODIUM 20 MG TABLET 40 MG PO (08:52)
[2023-08-03] MEDS: ASPIRIN 325 MG ENTERIC TABLET PO (08:52)
[2023-08-03] MEDS: polyethylene glycoL 3350 17 GM POWD.PACK PO (08:52)
[2023-08-03] MEDS: lisinopriL 20 MG TABLET 40 MG PO (08:52)
[2023-08-03] MEDS: FAMOTIDINE 20 MG TABLET PO (08:53)
[2023-08-03] MEDS: SENNA/DOCUSATE SODIUM TABLET 2 TAB PO (08:53)
[2023-08-03] MEDS: INSULIN GLARGINE (*BKC) 100 UNITS/ML 80 UNITS SUB-Q (08:53)
[2023-08-03] MEDS: INSULIN ASPART (*BKC) 100 UNITS/ML 10 UNITS SUB-Q ×2 (08:53→13:03)
[2023-08-03] MEDS: CELECOXIB 200 MG CAPSULE PO (08:53)
[2023-08-03] MEDS: CYCLOBENZAPRINE HCL 10 MG TABLET PO (09:07)
[2023-08-03 09:33] VITALS: BP 100/50; PULSE 80; RESP 14; O2SAT 98
[2023-08-03] MEDS: ONDANSETRON INJ 4 MG/2 ML VIAL IV PUSH (09:52)
[2023-08-03 12:31] LABS: Glucose Point of Care 173 mg/dl (65-105)
[2023-08-03 13:20] VITALS: BP 122/49; PULSE 76; RESP 16; TEMP 36.4; O2SAT 94
== END 2023-08-03 15:25 | disposition home or self-care (01) ==
LOC: ANHSURGERY 05:59 → ANH2MED 11:33
PROVIDERS: Physician Assistant; PCP Family Medicine; Visit Provider Orthopaedic Surgery
PROC: (CPT 27447; principal; 2023-08-02 07:30)
DX: M17.11 Unilateral primary osteoarthritis, right knee (principal); I10 Essential (primary) hypertension; E78.5 Hyperlipidemia, unspecified; E11.9 Type 2 diabetes mellitus without complications; F32.A Depression, unspecified; G89.18 Other acute postprocedural pain; E66.9 Obesity, unspecified; Z68.38 Body mass index [BMI] 38.0-38.9, adult; Z79.4 Long term (current) use of insulin; Z79.84 Long term (current) use of oral hypoglycemic drugs; Z79.82 Long term (current) use of aspirin; Z79.01 Long term (current) use of anticoagulants; Z79.85 Long-term (current) use of injectable non-insulin antidiabetic drugs; Z98.890 Other specified postprocedural states; Z85.828 Personal history of other malignant neoplasm of skin; Z80.3 Family history of malignant neoplasm of breast
CPT/HCPCS: 27447; 64447; 36415; 73560; 80048; 80076; 80307; 82948; 83036; 83735; 85025; 86850; 86900; 86901; 87081; 93005; 97110; 97116; 97161; 97165; 97530; 97535; A9270; C1713; C1776; J0171; J0690; J1100; J1815; J2250; J2270; J2405; J2704; J2795; J3010; J3370; J7030; J7120

== ENCOUNTER 2023-09-20 08:30 | Emergency (ER) | payer MEDICARE, SELFPAY ==
[2023-09-20 08:45] VITALS: BP 127/57; PULSE 79; RESP 18; TEMP 35.9; O2SAT 95
--- NOTE | 2023-09-20 08:45 | ED.EXTPRO ---
HPI - Extremity Problem General Chief complaint: Extremity Problem,Nontraumatic Stated complaint: rt arm pain Time Seen by Provider: 09/20/23 08:45 Source: patient Mode of arrival: ambulatory Limitations: no limitations History of Present Illness HPI Narrative: Patient is a 68-year-old female that presents with right elbow pain that started at 11:00 p.m. when she turned over in bed. Patient states she was unable to straighten arm until arrival here. Patient went to physical therapy this morning for knee and was told she needed an x-ray. Denies any trauma. States she has had similar experiences in the past that normally only lasts a few minutes. Patient used ice last night. Has not taken anything for pain. Denies any pain, swelling, numbness, tingling or weakness. Related Data Home Medications Medication Instructions Recorded Confirmed amlodipine 10 mg tablet 10 mg PO DAILY 06/07/19 09/20/23 carvedilol 25 mg tablet 25 mg PO BID 06/07/19 09/20/23 cholecalciferol (vitamin D3) 25 1,000 unit PO BID 06/07/19 09/20/23 mcg (1,000 unit) tablet lisinopril 40 mg tablet 40 mg PO BID 06/07/19 09/20/23 metformin 1,000 mg tablet 1,000 mg PO BID 06/07/19 09/20/23 multivitamin (Daily Multi-Vitamin 1 tablet PO DAILY 06/07/19 09/20/23 tablet) omega-3 1,050 mq-erx-mhq-dpa-fish 1 cap PO DAILY 06/07/19 09/20/23 oil 1,200 mg capsule (Jack-3 2100) aspirin 325 mg tablet,delayed 325 mg PO DAILY 09/24/21 09/20/23 release pyridoxine (vitamin B6) 100 mg 100 mg PO DAILY 09/24/21 09/20/23 tablet hydrochlorothiazide 12.5 mg tablet 25 mg PO BID 06/06/23 09/20/23 insulin glargine 100 unit/mL 80 unit subcut QAM 06/06/23 09/20/23 subcutaneous solution (Lantus U-100 Insulin) pravastatin 40 mg tablet 40 mg PO DAILY 06/20/23 09/20/23 coenzyme Q10 30 mg capsule 30 mg PO DAILY 07/25/23 09/20/23 insulin glulisine U-100 100 10 unit subcut TID 07/25/23 09/20/23 unit/mL subcutaneous solution (Apidra U-100 Insulin) tirzepatide 5 mg/0.5 mL 5 mg subcut WEEKLY 07/25/23 09/20/23 subcutaneous pen injector (Mounjaro) Allergies Allergy/AdvReac Type Severity Reaction Status Date / Time Bleach (Sodium Hypochlorite) Allergy Severe Dyspnea / Verified 09/20/23 08:47 SOB latex Allergy Severe Difficulty Verified 09/20/23 08:47 Breathing losartan Allergy Severe RASH Verified 09/20/23 08:47 adhesive tape Allergy Intermediate PLASTIC Verified 09/20/23 08:47 TAPE= RASH naproxen Allergy Unknown DIFFICULTY Verified 09/20/23 08:47 WALKING,UNABLE TO RECALL omeprazole Allergy Unknown Rash,UNABLE Verified 09/20/23 08:47 TO RECALL propranolol Allergy Unknown UNABLE TO Verified 09/20/23 08:47 RECALL amlodipine [From [employer]] AdvReac Mild Rash Verified 09/20/23 08:47 valsartan AdvReac Mild Rash Verified 09/20/23 08:47 Review of Systems Review of Systems: All systems reviewed & are unremarkable except as noted in HPI and below Constitutional: Constitutional: Denies body ache(s), Denies chills, Denies fatigue, Denies fever(s), Denies headache(s), Denies malaise and Denies weakness Eyes: Eyes: Denies blurry vision, Denies irritation and Denies loss of vision ENT: Denies otalgia, Denies headache(s), Denies nasal discharge, Denies sinus pain and Denies sore throat Cardiovascular: Cardiovascular: Denies chest pain, Denies irregular heart rhythm and Denies dyspnea Respiratory: Respiratory: Denies dyspnea Gastrointestinal: Gastrointestinal: Denies abdominal pain, Denies melena, Denies hematochezia, Denies diarrhea, Denies nausea and Denies vomiting Musculoskeletal: Musculoskeletal: Denies back pain, Denies myalgias and Reports arthralgias Integumentary/Breasts: Skin/Breast: Denies pruritus and Denies rash Neurologic: Denies headache(s), Denies loss of vision and Denies weakness Psychiatric: Psychiatric: Reports no additional psychiatric complaints Endocrine: Endocrine: Denies fatigue PMFSH Past Medical History
[2023-09-20 08:48] VITALS: BP 127/57; PULSE 79; RESP 18; TEMP 35.9; O2SAT 95
== END 2023-09-20 09:03 | disposition home or self-care (01) ==
PROVIDERS: Emergency Provider Nurse Practitioner Family; PCP Family Medicine
DX: S53.401A Unspecified sprain of right elbow, initial encounter (principal); T14.90XA Injury, unspecified, initial encounter; E78.5 Hyperlipidemia, unspecified; I10 Essential (primary) hypertension; E11.9 Type 2 diabetes mellitus without complications; Z79.4 Long term (current) use of insulin
CPT/HCPCS: 99212; G0463

== ENCOUNTER 2023-12-08 09:48 | Outpatient (CLI) | payer MEDICARE, SELFPAY ==
--- NOTE | ~2023-12-08 | MR_ITS ---
MRI of the lumbar spine Clinical History: Right-sided foot drop Technique: Axial T2-weighted images, and sagittal T1-weighted, T2-weighted, and T2 fat-sat images wer e acquired. Findings: There is no fracture or sublocation lumbar spine. Vertebral bodies maintain normal height a nd alignment. No suspicious bone marrow signal abnormality seen. At L1-L2, there is mild disc change. There is severe facet arthropathy. No central canal stenosis. Th ere is severe left neural foraminal narrowing, and probable moderate to severe right neural foraminal narrowing. At L2-L3, there is mild degenerative disc change. There is mild disc bulge and severe facet arthropat hy. No central canal stenosis. There is moderate left neural foraminal narrowing and mild to moderate right neural foraminal narrowing. At L3-L4, there is mild disc bulge and advanced facet arthropathy. No central canal stenosis. There i s moderate to severe left neural foraminal narrowing, and mild right neural foraminal narrowing. At L4-L5, there is severe degenerative disc narrowing. There is diffuse disc bulge and severe facet a rthropathy. There is minimal central canal stenosis. There is severe bilateral neural foraminal narro wing, left worse than right. At L5-S1, there is disc bulge and severe facet arthropathy. No central canal stenosis. There is sever e right neural foraminal narrowing, and moderate left neural foraminal narrowing. Paravertebral soft tissues are unremarkable. Impression: Moderate to severe degenerative spondylosis, as above, with neural foraminal narrowing throughout the lumbar spine. Reviewed, dictated and finalized at location . Impression: Moderate to severe degenerative spondylosis, as above, with neural foraminal na rrowing throughout the lumbar spine.
== END 2023-12-08 09:49 ==
LOC: GOSHIMG 09:49
PROVIDERS: PCP Family Medicine; Visit Provider Family Medicine
DX: M21.371 Foot drop, right foot (principal); M43.06 Spondylolysis, lumbar region
CPT/HCPCS: 72148

== ENCOUNTER 2024-01-19 11:00 | Outpatient (RCR) | payer MEDICARE, SELFPAY ==
[2024-01-19 11:45] VITALS: BMI 33.5
[2024-01-19 12:56] VITALS: BMI 33.5
== END 2024-03-26 11:15 | disposition home or self-care (01) ==
LOC: ANHDMC 11:00
PROVIDERS: PCP Family Medicine; Visit Provider Family Medicine
DX: E11.65 Type 2 diabetes mellitus with hyperglycemia (principal); Z79.4 Long term (current) use of insulin; Z71.89 Other specified counseling; Z71.3 Dietary counseling and surveillance
CPT/HCPCS: 97802; G0108

== ENCOUNTER 2024-03-26 10:25 | Outpatient (CLI) | payer MEDICARE, SELFPAY ==
--- NOTE | ~2024-03-26 | MM_ITS ---
EXAMINATION: MM screening chris BI w zamzam HISTORY: Screening TECHNIQUE: Craniocaudal and mediolateral oblique 3-D tomosynthesis images were obtained and synthetic 2-D images were generated. CAD analysis was submitted and interpreted. COMPARISON: Comparison to multiple prior studies sequentially, with oldest reviewed study dated 12/05/2017. BREAST PARENCHYMAL COMPOSITION: Not dense: There are scattered areas of fibroglandular density. FINDINGS: There is no evidence of suspicious mass, calcification, or architectural distortion to sugg est malignancy in either breast. There has been no suspicious interval change. IMPRESSION: 1. No mammographic evidence of malignancy. 2. Recommend routine screening mammography in one year. BI-RADS Category 1: Negative Reviewed, dictated and finalized at location B.
== END 2024-03-26 10:26 | disposition home or self-care (01) ==
LOC: ANHIMG 10:26
PROVIDERS: PCP Family Medicine; Visit Provider Obstetrics & Gynecology
DX: Z12.31 Encounter for screening mammogram for malignant neoplasm of breast (principal)
CPT/HCPCS: 77063; 77067

== ENCOUNTER 2024-08-06 13:06 | Outpatient (CLI) | payer MEDICARE, SELFPAY ==
--- NOTE | ~2024-08-06 | XR_ITS ---
XR knee RT 3V Ordering provider: Anson Dumont MD History: . Z96.651 - Presence of right artificial knee joint . Comparison: September 13, 2023 FINDINGS: BONES: No acute fracture or dislocation. JOINT SPACES: Total knee arthroplasty. SOFT TISSUES: Normal. IMPRESSION: No acute osseous abnormality right knee. Right total knee arthroplasty. Reviewed, dictated and finalized at location A. [employer]
== END 2024-08-06 13:07 | disposition home or self-care (01) ==
PROVIDERS: PCP Orthopaedic Surgery; Visit Provider Orthopaedic Surgery
DX: Z96.651 Presence of right artificial knee joint (principal)
CPT/HCPCS: 73562

== ENCOUNTER 2024-10-01 06:55 | Outpatient (CLI) | payer MEDICARE, SELFPAY ==
--- NOTE | ~2024-10-01 | MR_ITS ---
EXAMINATION: MR cervical spine wo con DATE: 10/01/2024 07:39 INDICATION: Radiculopathy, cervical region. TECHNIQUE: Magnetic resonance imaging (MRI) of the cervical spine was performed without intravenous c ontrast. COMPARISON: None FINDINGS: There is 3 mm retrolisthesis of C5 on C6. Vertebral body heights are normal. There is sever john decreased disc height at C5-C6. The spinal cord signal intensity is normal. The following disc le vels are specifically discussed: C2-C3: The disc does not extend beyond the endplate margin. There is no uncovertebral joint osteoarth ritis. There is mild bilateral facet joint osteoarthritis. There is no neural foraminal stenosis. The re is no central canal stenosis. C3-C4: There is a central extrusion. There is mild bilateral uncovertebral joint osteoarthritis. Ther e is severe bilateral facet joint osteoarthritis. There is mild right and moderate left neural forami nal stenosis. There is mild central canal stenosis. C4-C5: There is a left central extrusion. There is mild bilateral uncovertebral joint osteoarthritis. There is mild right and severe left facet joint osteoarthritis. There is mild bilateral neural malachi inal stenosis. There is mild central canal stenosis with ventral indentation of the spinal cord. Ther e is moderate stenosis of the lateral recess. C5-C6: The disc is bulging with superimposed left central extrusion. There is severe bilateral uncove rtebral joint osteoarthritis. There is moderate right and severe left facet joint osteoarthritis. The re is severe bilateral neural foraminal stenosis. There is moderate central canal stenosis with ventr al and dorsal indentation of the spinal cord. C6-C7: The disc is bulging. There is mild bilateral uncovertebral joint osteoarthritis. There is mode rate right and severe left facet joint osteoarthritis. There is mild bilateral neural foraminal steno sis. There is no central canal stenosis. C7-T1: There is a central protrusion. There is no uncovertebral joint osteoarthritis. There is modera te right and mild left facet joint osteoarthritis. There is no neural foraminal stenosis. There is mi ld central canal stenosis. IMPRESSION: 1. Severe cervical spondylosis. Reviewed, dictated and finalized at location A. V GROOVE CUTTER
--- OUTSIDE RECORDS SUMMARY | 2024-10-01 06:59 | XMS_ITS | Clinical Summary ---
Author Organization [facility] Address [address] [place] [id number] Care Team Providers Care Social Media Developer Name Role Phone Unavailable Primary Care Provider Unavailabl e Social History Tobacco Use Types Packs/Day Years Used Date Smoking Tobacco: Never Assessed Comments Unknown Sex and Gender Information Value Date Recorded Sex Assigned at Not on file Legal Sex Female 5:19 PM CDT Gender Identity Not on file Sexual Orientation Not on file Plan of Treatment Health Maintenance Due Date Last Done Comments Colorectal Cancer Screening Colonoscopy (10 Years) 1957 Hepatitis C 1975 DTaP, Tdap and Td Vaccines ( 1 - Tdap) 1976 Mammogram Screening 1997 Zoster Vaccines (1 of 2) 2007 Dexa Scan (General) 2022 Pneumococcal Vaccine: 65+ Ye ars (1 of 1 - PCV) 2022 COVID-19 Vaccine (2023-2 5 season) 2024 Influenza Adult (#1) 2024 RSV Immunization or 60+ Years (1 - 1-dose 75+ series) 2032 Meningococcal B Vaccine Aged Out No l onger eligible based on patient's age to complete this topic Meningococcal Vaccine Aged Out No darien landry eligible based on patient's age to complete this topic RSV Immunizations Under 20 Months Aged Out No longer eligible based on patient's age to complete this topic
--- OUTSIDE RECORDS SUMMARY | 2024-10-01 06:59 | XMS_ITS | Data Portability ---
Author Organization [facility], Main Office Address [address] [place] [address] Care Team Providers Care Collarette Separator Name Role Phone TRACEY MCLEAN Primary Care Provider [phone] TRACEY MCLEAN Referring Provider [phone] Assessment Encounter Date Assessment Date Assessment LastModified by Organization Details LastModified Time 01/10/2023 01/10/2023 Patient returns knee pain right. She is ready to have surgery done. She has has gllc-xw-tjvd change in the right knee. She previous had and left knee replacement done by me and has done well. We discussed treatment options risks benefits limitations and alternatives in detail she agrees and understands. She has had it done on the left so she has been through it. We will proceed per her request. [email or web address] Not available 01/10/2023 10:40:12 03/08/2023 03/08/2023 Patient returns tdmw-kq-atsu arthritis right knee. She has had previous ACL reconstruction and has developed arthritis over time. She really needs a knee replacement is scheduled later in the year. Her she is having a hard of time now she can hardly get around. On exam the motion is 5-110 grinding crepitus and pain with manipulation. I injected with 20 mg Kenalog 4 cc 1% lidocaine into the right knee. For prescription drug management will try prednisone taper for pain and inflammation. I will see her back in a month to see how she is progressing. She is 4 years out status post left total knee doing well without complaint. Her x-rays look good no evidence of loosening or change. [email or web address] Not available 03/08/2023 14:45:39 Plan of Treatment Reminders Order Date Submit Date Provider Last Modified By Organization Details Last Modified Time Details Appointments None recorded. Lab None recorded. Referral None recorded. Procedures injection/a spiration joint/bursa (PROC) - in office procedure, administere d by provider 2022 023 [email or web address] In-Office Order, Internal Use Only DO Not Attach Compendium DO Not Attach Compendium, Do Not Delete/merge, [id number] 3 14:40:44 Surgeries None recorded. Imaging XR, knee 2022 023 [email or web address] [facility] [place], [address], [place], [address], 3 15:13:02 Medication Orders Kenalog 10 mg/mL suspension for injection 2022 023 [email or web address] [id number], [address], [place], [place], [phone], 3 14:48:31 ropivacaine (PF) 5 mg/mL (0.5 %) injection solution 2022 [address]23 [address] [id number], [address] [place], [place], [phone], 3 14:48:31 diclofenac sodium 75 mg tablet,patrick yed release [address] [id number], [address] [place], [place], [id number], 3 14:48:31 Patient TargetsNo targets recorded. Patient InstructionsNo instructions recorded. Reason for Referral None Reported. Results Created Date Observation Date Name Description Value Unit Range Abnormal Flag Note LastModifiedBy Organization Detail LastModifiedTime 01/15/20 22 XR, knee, 3 view No observ ation record ed. [id number] [facility] [place] [address], [place], [address], 10/06/2022 13:33:27 03/08/20 23 XR, knee No observ ation record ed. [email or web address] [facility] [place] [address], [place], [address], 03/08/2023 14:45:09 Result Notes None recorded. Problems Name Problem SNOMED Code Status Onset Date Resolution Date Notes Provider Name and Address Organization Details Recorded Time History of left total knee replacemen t 8478580988172 105 Active 2021 Not Available [facility] 3 13:30:53 History of total knee arthroplas ty 5275023051713 Active 2018 Not Available [facility] 3 13:30:53 Pain in right sacroiliac joint 3669910256164 9107 Active 2021 Not Available [facility] 3 13:30:53 Osteoarthr itis of knee 211928925 Active Not Available [facility] 3 13:30:53 Low back pain 667038117 Active 2021 Not Available [facility] 3 13:30:53 Knee pain Active Not Available [facility] 3 13:30:53 Osteoarthr itis of left knee joint 9246201044414 09 Active 2021 Not Available [facility] 3 13:30:53 Osteoarthr itis of right knee joint 1110557378823 00 Active 2021 Not Available [facility] 3 13:30:53 Osteoarthr itis 312897835 Active Not Available [facility] 3 13:30:53 Pain of bilateral knee joints 0088404306766 04 Active 2021 Not Available [facility] 3 13:30:53 Pain in limb 77536106 Active Not Available [facility] 3 13:30:54 Problem Notes None recorded. Procedures Surgical History Date Name Laterality Status Provider Name and Address Organization Details Recorded Time 3 Ortho - Cortisone Injection completed Anson Dumont MD [address] [facility], [facility], [place], [address], [facility] Tuan[address] [facility] 03/08/2023 14:43:41 Imaging Results Imaging Date Name Status LastModified by Organiz ation Details LastModified Time 01/14/2022 XR, knee, 3 view completed [id number] [facility] [place] [address], [place], [address], 10/06/2022 13:33:27 03/08/2023 XR, knee completed [email or web address] [facility] [place] [address], [place], [address], 03/08/2023 14:45:09 Procedure Notes None recorded. Medical Equipment None Reported. Allergies Allergen ID Allergen Name Allergen Category Reaction Reaction Severity Criticality Documentation Date Start Date Code Code System Note Provider Name and Address Organization Details Recorded Time 56914 omeprazol e medicatio n other Not available Not available 10/06/2022 7646 RxNorm Not Available [facility] 3 13:33:23 30170 naproxen medicatio n other Not available Not available 10/06/2022 7258 RxNorm Not Available [facility] 3 13:33:23 85642 losartan medicatio n rash Not available Not available 10/06/2022 26421 RxNorm Not Available [facility] 3 13:33:23 03925 amlodipin e / valsartan medicatio n rash Not available Not available 10/06/2022 29703 5 RxNorm Not Available [facility] 3 13:33:24 18321 adhesive tape environme nt,medica tion Not available Not available Not available 10/06/2022 92056 UNK Not Available [facility] 3 13:33:24 Medications Name Sig Start Date Stop Date Status Note LastModified by Organization Details LastModified Time clever choice comfort ez insulin sy ringe/u-100 /1ml/31gx5/ 16 31g x 5/16 1 ml misc active Not Available Not Available Not Available pharmacist choice ultra thin lancet s 31g misc active Not Available Not Available Not Available simple diagnostics lancing device misc active Not Available Not Available Not Available amoxicillin 500 mg capsule TAKE 1 CAPSULE BY MOUTH TWICE DAILY active Not Available Not Available No t Available terbinafine HCl 1 % topical cream 05/29 completed Not Available Not Available Not Available carvedilol 25 mg tablet TAKE 1 TABLET BY MOUTH TWICE DAILY WITH FOOD active Not Available Not Available No t Available prednisone 10 mg tablet active Not Available Not Available Not Available doxycycline hyclate 100 mg capsule TK ONE C PO BID FOR 10 DAYS 05/29 completed Not Available Not Available Not Available aspirin 325 mg tablet TAKE 1 TABLET BY MOUTH EVERY DAY active Not Available Not Available No t Available pravastatin 40 mg tablet TAKE 1 TABLET BY MOUTH AT BEDTIME active Not Available Not Available No t Available tizanidine 4 mg tablet 05/29 completed Not Available Not Available Not Available ampicillin 500 mg capsule TAKE 1 CAPSULE BY MOUTH THREE TIMES DAILY 01/14 completed Not Available Not Available Not Available ondansetron HCl 4 mg tablet 01/14 completed Not Available Not Available Not Available Lantus U-100 Insulin 100 unit/mL subcutaneou s solution INJECT 80 UNITS UNDER THE SKIN EVERY MORNING active Not Available Not Available No t Available insulin syringe U-100 with needle 1 mL 29 gauge x 02/20 completed Not Available Not Available Not Available peg-electro lyte solution 420 gram oral solution 05/29 completed Not Available Not Available Not Available omeprazole 40 mg capsule,del ayed release 05/29 completed Not Available Not Available Not Available triamcinolo ne acetonide 0.1 % topical cream 05/29 completed Not Available Not Available Not Available ketorolac 0.5 % eye drops INT 1 GTT AEY QID. BEGIN USING 2 DAYS BEFORE SURGERY 05/29 completed Not Available Not Available Not Available prednisone 10 mg tablets in a dose pack Take 1 tab by mouth, 3 times a day for 3 daysTake 1 tab by mouth 2 times a day for 2 daysTake 1 tab by mouth once a day for 1 day 03/03 completed Not Available Not Available Not Available pravastatin 80 mg tablet TAKE 1 TABLET BY MOUTH EVERY DAY active Not Available Not Available No t Available prednisolon e acetate 1 % eye drops,suspe nsion 05/29 completed Not Available Not Available Not Available Humalog U-100 Insulin 100 unit/mL subcutaneou s solution INJECT 10 UNITS UNDER THE SKIN 3 TIMES A DAY. MAX 30 UNITS DAILY active Not Available Not Available No t Available ciprofloxac in 0.3 % eye drops INT 1 GTT INTO SURGICAL EYE TID STARTING 2 DAYS B SURGERY 05/29 completed Not Available Not Available Not Available Kenalog 10 mg/mL suspension for injection Take 20 mg by injection route. 2022 active [facility]: 0003- [phone]- 20 Not Available Not Available Not Available amlodipine 10 mg tablet TAKE 1 TABLET BY MOUTH EVERY DAY active Not Available Not Available No t Available doxycycline monohydrate 100 mg capsule TK 1 C PO BID 05/29 completed Not Available Not Available Not Available hydrocodone 7.5 mg-acetamin ophen 325 mg tablet 01/14 completed Not Available Not Available Not Available cephalexin 500 mg capsule TAKE 4 CAPSULES BY MOUTH ONE HOUR PRIOR TO DENTAL PROCEDURE DIRECTED. active Not Available Not Available No t Available metformin 1,000 mg tablet TAKE 1 TABLET BY MOUTH TWICE DAILY WITH THE MORNING AND EVENING MEAL active Not Available Not Available No t Available metronidazo le 0.75 % topical cream APPLY THIN LAYER TOPICALLY TO THE AFFECTED AREA TWICE DAILY active Not Available Not Available No t Available hydrochloro thiazide 12.5 mg capsule TAKE 1 CAPSULE BY MOUTH EVERY DAY 01/10 completed Not Available Not Available Not Available diclofenac sodium 75 mg tablet,patrick yed release TAKE 1 TABLET BY MOUTH TWICE DAILY 2022 active Not Available Not Available Not Avai lable bisacodyl 5 mg tablet,patrick yed release TK 6 TS PO AT 10 AM ON 06/25/15. 05/29 completed Not Available Not Available Not Available hydrochloro thiazide 25 mg tablet TAKE 1 TABLET BY MOUTH EVERY DAY active Not Available Not Available No t Available mometasone 0.1 % topical ointment APPLY THIN LAYER TO THE AFFECTED AREA OF SKIN DAILY 01/10 completed Not Available Not Available Not Available Novolog U-100 Insulin aspart 100 unit/mL subcutaneou s solution INJECT 10 UNITS UNDER THE SKIN FOUR TIMES DAILY active Not Available Not Available No t Available zolpidem 10 mg tablet TK 1 T PO ONCE PRF SLEEP EVAL 05/29 completed Not Available Not Available Not Available insulin syringe U-100 with needle 1 mL 30 gauge x 7/16 06/01 completed Not Available Not Available Not Available methylpredn isolone 4 mg tablets in a dose pack 05/29 completed Not Available Not Available Not Available albuterol sulfate HFA 90 mcg/actuati on aerosol inhaler INHALE 1 TO 2 PUFFS BY MOUTH EVERY 4 TO 6 HOURS NEEDED active Not Available Not Available No t Available Vitamin D2 1,250 mcg (50,000 unit) capsule 05/29 completed Not Available Not Available Not Available lisinopril 40 mg tablet TAKE 1 TABLET BY MOUTH TWICE DAILY active Not Available Not Available No t Available ondansetron 4 mg disintegrat ing tablet DISSOLVE 1 TABLET ON THE TONGUE EVERY 8 HOURS active Not Available Not Available No t Available cefdinir 300 mg capsule 05/29 completed Not Available Not Available Not Available losartan 100 mg tablet TK 1 T PO QD 05/29 completed Not Available Not Available Not Available naproxen 500 mg tablet 05/29 completed Not Available Not Available Not Available amoxicillin 500 mg-potassiu m clavulanate 125 mg tablet TAKE 1 TABLET BY MOUTH TWICE DAILY active Not Available Not Available No t Available neomycin-po lymyxin-hyd rocort 3.5 mg-10,000 unit/mL-1 % ear drops,susp 05/29 completed Not Available Not Available Not Available insulin lispro (U-100) 100 unit/mL subcutaneou s pen INJECT 10 UNITS UNDER THE SKIN THREE TIMES DAILY BEFORE MEALS active Not Available Not Available No t Available Novolog FlexPen U-100 Insulin aspart 100 unit/mL (3 mL) subcutaneou s 05/29 completed Not Available Not Available Not Available cyclobenzap rine 5 mg tablet TAKE 1 TABLET BY MOUTH THREE TIMES DAILY FOR SPASMS OF THE CERVICAL AREA active Not Available Not Available No t Available Alcohol Prep Pads active Not Available Not Available No t Available Asprin Ec Low Dose 01/14 completed Not Available Not Available Not Available lidocaine (PF) 10 mg/mL (1 %) injection solution In office injection administe red by the provider 01/14 completed [facility]: [phone]- 17 Not Available Not Available Not Available BD Ultra-Fine Short Pen Needle 31 gauge x 5/16 06/19 completed Not Available Not Available Not Available Apidra U-100 Insulin 100 unit/mL subcutaneou s solution INJECT 10 UNITS SC TID AFTER MEALS 06/01 completed Not Available Not Available Not Available hydrochloro thiazide 12.5 mg tablet TAKE 1 TABLET BY MOUTH EVERY DAY 01/10 completed Not Available Not Available Not Available Lantus Solostar U-100 Insulin 100 unit/mL (3 mL) subcutaneou s pen INJECT 70 UNITS EVERY DAY 01/10 completed Not Available Not Available Not Available Vit 3 01/14 completed Not Available Not Available Not Available Bystolic 20 mg tablet 05/29 completed Not Available Not Available Not Available Apidra SoloStar U-100 Insulin 100 unit/mL subcutaneou s pen 06/19 completed Not Available Not Available Not Available Xarelto 10 mg tablet 03/03 completed Not Available Not Available Not Available ropivacaine (PF) 5 mg/mL (0.5 %) injection solution Take 20 mg by injection route. 2022 active [facility] [phone] Not Available Not Available Not Available OneTouch Verio test strips active Not Available Not Available Not Available OneTouch Verio High Control solution active Not Available Not Available Not Available BD Insulin Syringe Ultra-Fine 1 mL 31 gauge x 15/64 active Not Available Not Available Not Available TRUEplus Insulin 1 mL 30 gauge x 5/16 syringe USE 1 SYRINGE FOUR TIMES DAILY active Not Available Not Available No t Available TRUEplus Insulin 1 mL 31 gauge x 5/16 syringe USE ONE SYRINGE 4 TIMES DAILY active Not Available Not Available No t Available Ultra Thin Lancets 30 gauge 05/29 completed Not Available Not Available Not Available Fish Oil 1,000 mg (120 mg-180 mg) capsule Take by oral route. 2018 active Not Available Not Available Not Avai lable TRUEplus Pen Needle 32 gauge x 5/32 USE ONE NEEDLE 4 TO 6 TIMES A DAY 01/10 completed Not Available Not Available Not Available Fluvirin (PF) 45 mcg(15 mcg x3)/0.5 mL intramuscul ar syringe active Not Available Not Available N ot Available BD Veo Insulin Syringe Ultra-Fine 1 mL 31 gauge x 15/64 USE WITH INSULIN INJECTION 5 TIMES DAILY 01/10 completed Not Available Not Available Not Available Fluzone Quad (PF) 60 mcg(15 mcgx4)/0.5 mL intramuscul ar syringe active Not Available Not Available N ot Available OneTouch Verio Reflect Meter active Not Available Not Available Not Available Vitals Date Recorded Body mass index (BMI) Body height Body weight Provider Name and Address Organization Details Last Updated DateTime 01/14/2022 36 kg/m2 162.56 cm 16480.4 g Not Available [facility] 10/06/2022 13:30:10 Date Recorded Body mass index (BMI) Body height Body weight Provider Name and Address Organization Details Last Updated DateTime 02/11/2022 20.8 kg/m2 162.56 cm 75682.68 g Not Available [facility] 10/06/2022 13:30:10 Date Recorded Body height Provider Name an d Address Organization Details Last Updated DateTime 05/17/2022 162.56 cm Not Available [facility] 13:30:09 Date Recorded Body height Body mass index (BMI) Body weight Provider Name and Address Organization Details Last Updated DateTime 01/10/2023 162.56 cm 36 kg/m2 42630.4 g ANA LUISA León [facility] 01/10/2023 09:42:32 Date Recorded Body height Body mass index (BMI) Body weight Provider Name and Address Organization Details Last Updated DateTime 03/08/2023 160.02 cm 37.6 kg/m2 56289.58 g Mady Davis [employer] [facility] 03/08/2023 14:24:15 Social History Question Answer Notes LastModified by Organizat ion Details LastModified Time Tobacco Smoking Status Never Smoker Not Available [facility] 10/06/2022 13:29:54 What Is Your Level Of Alcohol Consumption? None [id number] Information not available 10/06/2022 Sex: Unknown Functional Status None recorded. Mental Status None recorded. Family History Relationship Description Onset Age of this Age Resolved Age Notes LastModified by Organization Details LastModified Time Maternal Grandfather Heart disease [id number] Not available 10/06/2022 13:30:05 Sister Family history of malignant neoplasm [id number] Not available 10/06/2022 13:30:05 Father Hypertensive disorder [id number] Not available 10/06/2022 13:30:06 Father Diabetes mellitus [id number] Not available 10/06/2022 13:30:06 Mother Disorder of lung [id number] Not available 10/06/2022 13:30:06 Medical History Condition Response HYPERTENSION Y DIABETES, TYPE Y CANCER: SPECIFY Y Gynecological HistoryNo gynecological history recorded. Obstetrics History GPAL:G 0 P 0 0 0 0 Past Encounters Encounter ID Performer Location Encounter Start Date Encounter Closed Date Diagnosis/Indication Diagnosis SNOMED-CT Code Diagnosis ICD10 Code Diagnosis Note [id number] [facility] [place] [address] [place] [address] 01/22/2021 00:00:00 01/22/2021 12:26:22 [id number] [facility] [place] [address] [place] [address] 01/14/2022 00:00:00 01/14/2022 10:07:40 [id number] [facility] [place] [address] [place] [address] 02/11/2022 00:00:00 02/11/2022 09:14:41 [id number] [facility] [place] [address] [place] [address] 05/17/2022 00:00:00 05/17/2022 09:59:06 [id number] Anson Dumont MD [facility] [place] [address] [place] [address] 01/10/2023 09:10:15 01/10/2023 10:38:17 Pain in right sacroiliac joint 4460521668 7696236 M53.3 Osteoarthr itis of right knee joint 1605371947 18446 M17.11 [id number] Anson Dumont MD [facility] [place] [address] [place] [address] 03/08/2023 14:18:38 03/08/2023 15:13:02 Pain in right sacroiliac joint 3439773137 4738912 M53.3 Osteoarthr itis of right knee joint 0743952550 83251 M17.11 Health Concerns Section Related Observation LastModified by Organization Detai ls LastModified Time None Recorded Concern Status LastModified by Organization Details LastModified Time None Recorded Advance Directives Directive None Recorded Payers Encounter Date Sequence Insurance Name Policy Number Policy Peters Covered Member ID Peters Member ID Guarantor Name 01/10/2023 1 [facility] (MEDICARE REPLACEMENT/A DVANTAGE - HMO) [id number] Cira L Debourge [id number] Cira L Debourge 01/10/2023 2 [place] Cira L Debourge [id number] Cira L Debourge 03/08/2023 1 [facility] (MEDICARE REPLACEMENT/A DVANTAGE - HMO) [id number] Cira L Debourge [id number] Cira L Debourge Notes Date Note Type Note Provider Name and Address Organization Details Recorded Time 01/14/2022 text/html KneeReported bypatient.Location: right Quality:aching; throbbing; dull Severity:moderate Duration:continuous since onset Timing:chronic Alleviating Factors:sitting; lying down; rest; elevation Aggravating Factors:bending/squ atting; weight bearing Associated Symptoms:no weakness; no numbness; no tingling; no redness; no ecchymosis; no catching/locking; no popping/clicking; no buckling; no instability; no radiation down leg; no drainage; no fever; no chills; no weight loss; no change in bowel/bladder habits;swelling;war mth;grinding Not Available [facility] 01/14/2022 10:07:40 02/11/2022 text/html KneeReported bypatient.Location: right Quality:aching; throbbing; dull Severity:moderate Duration:continuous since onset Timing:chronic Alleviating Factors:sitting; lying down; rest; elevation Aggravating Factors:bending/squ atting; weight bearing Associated Symptoms:no weakness; no numbness; no tingling; no redness; no ecchymosis; no catching/locking; no popping/clicking; no buckling; no instability; no radiation down leg; no drainage; no fever; no chills; no weight loss; no change in bowel/bladder habits;swelling;war mth;grinding Not Available [facility] 02/11/2022 09:14:41 05/17/2022 text/html KneeReported bypatient.Location: right Quality:aching; throbbing; dull Severity:moderate Duration:continuous since onset Timing:chronic Alleviating Factors:sitting; lying down; rest; elevation Aggravating Factors:bending/squ atting; weight bearing Associated Symptoms:no weakness; no numbness; no tingling; no redness; no ecchymosis; no catching/locking; no popping/clicking; no buckling; no instability; no radiation down leg; no drainage; no fever; no chills; no weight loss; no change in bowel/bladder habits;swelling;war mth;grinding Not Available [facility] 05/17/2022 09:59:06 01/10/2023 text/html KneeReported bypatient.Quality:a chalo; throbbing; dull Severity:moderate Duration:continuous since onset Timing:chronic Alleviating Factors:sitting; lying down; rest; elevation Aggravating Factors:bending/squ atting; weightbearing Associated Symptoms:no weakness; no numbness; no tingling; no redness; no ecchymosis; no catching/locking; no popping/clicking; no buckling; no instability; no radiation down leg; no drainage; no fever; no chills; no weight loss; no change in bowel/bladder habits;swelling;war mth;grinding Anson Dumont MD [address], [place] [address], [place], [address], [facility] 01/10/2023 10:40:28 03/08/2023 text/html Patient returns knee pain right. She has an arthritic right knee and is having difficulty getting around. We discussed possible surgery before she is scheduled for later in the year. Anson Dumont MD [address], [facility], [place], [address], [facility] 03/08/2023 14:51:27 OBGyn Episode No OBEpisode recorded.
--- OUTSIDE RECORDS SUMMARY | 2024-10-01 06:59 | XMS_ITS | Referral Summary ---
Author Organization [facility] Address [address] [place] [address] Care Team Providers Care Insurance Law Specialist Name Role Phone Rigo Courtney MD Primary Care Provider [phone] Source Comments [facility],non-owned Affiliates and Associated Physician Practices is amultiple site organization consisting of ambulatory clinics and hospital sitesin [place], [place], [place] and [place]. This disclosure is being madepursuant to the Care Everywhere program and may not contain all information available regarding this patient. Last updated 18.[facility] Urvew Allergies No known active allergies Social History Tobacco Use Types Packs/Day Years Used Date Smoking Tobacco: Never Assessed Sex and Gender Information Value Date Recorded Sex Assigned at Not on file Gender Identity Not on file Sexual Orientation Not on file Plan of Treatment Not on file Administered Medications Care Teams Insurance Law Specialist Relationship Specialty Start Date End Date Rigo Courtney MD [address] [place] [address] PCP - General Internal Medicine 11/26/16
--- OUTSIDE RECORDS SUMMARY | 2024-10-01 06:59 | XMS_ITS | Data Portability ---
Author Organization [facility] Address [address] [place] [address] Assessment Encounter Date Assessment Date Assessment LastModified by Organization Details LastModified Time 08/12/2020 08/12/2020 Annual gynecological exam performed. Patient will come back in a year unless there are new symptoms. [email or web address] Not available 08/12/2020 10:04:45 Plan of Treatment Reminders Order Date Submit Date Provider Last Modified By Organization Details Last Modified Time Details Appointments None record ed. Lab None record ed. Referral None record ed. Procedures None record ed. Surgeries None record ed. Imaging None record ed. Medication Orders None record ed. Patient TargetsNo targets recorded. Patient InstructionsNo instructions recorded. Reason for Referral None Reported. Results Created Date Observation Date Name Description Value Unit Range Abnormal Flag Note LastModifiedBy Organization Detail LastModifiedTime 08/12/1908/14/2020 pap, LB Pap test thin prep Negati ve for Intrae pithel ial Lesion or Malign shanice normal ACCES LAUREN #: [id number] Sourc e: Cervi ronny/E ndoce rvica l LMP: 05/27 Date Taken : 08/12 Speci men Type: ThinP rep Vial Date Repor dana: 021 Clini ronny Data: Cytot ech: Treas a Morri s, CT( CP) Date Repor dana: 021 Speci men Adequ acy: Satis facto ry for evalu ation Gener al Categ oriza tion: NEGAT GUSTAVO FOR INTRA EPITH ELIAL LESIO N OR MALIG TRINA Inter preta tion/ Resul t: Atrop hy This speci men has been cristiana zed by the ThinP rep Imagi ng Syste m, an inter activ e compu ter elvia m which blanca ts the lab in the kendell lopez of ThinP rep Pap Test slide newton nguyen, the slide was revie wed by a Cytot echno logis t and/o r Patho logis tCandy Mcghee N A A S S A Y S R E P O R T TEST NAME RESUL JOY ----- ---- ----- -- HPV High Risk Kendell llamas (TMA) ThinP rep Vial The human papil lomav irus (HPV) High Risk Kendell n is an FDA-a pprov ed in-vi tro ampli fied nucle ic acid test for the quali tativ e detec tion of E6/E7 viral mRNA. Resul ts shoul d be corre lated with patie nt prese ntati on, histo ry, cervi ronny cytol ogy and other clini ronny and labor atory findi ngs. See https ://[employer]/s ites/ defau lt/fi les/-0 AW- 76310 _002_ 01.pd f for sumi llamas. Test perfo rmed by [facility], d/b/a [employer], [address] [facility], [place] [address] , Ana Baez ra, DO, Labor atory [facility]. HPV High Risk *HPV NOT DETEC DANA (TYPE S 16, 18, 31, 33, 35, 39, 45, 51, 52, 56, 58, 59, 66, 68) *HPV: The human papil lomav irus (HPV) High Risk Kendell llamas is an FDA-a pprov ed in-vi tro ampli fied nucle ic acid test for the quali tativ e detec tion of E6/E7 viral mRNA. Resul ts shoul d be corre lated with patie nt prese ntati on, histo ry, cervi ronny cytol ogy and other clini ronny and labor atory findi ngs. See https ://[employer]/s ites/ defau lt/fi les/ 018-0 AW- 26327 _002_ .pd f for meera er jaelr isabelle llamas. Test perfo rmed by [facility], d/b/a [employer], [address], [place] [address] , Ana Baez ra, DO, [facility]. End of Repor t Techn ical servi clay provi ded by [facility] [employer], d/b/[employer], [address] [place] [address] Marvel Oleary MD, [facility]. Case revie wed and diagn osis rende red at [facility], d/b/a [employer], [address] [place] [address] Marvel Oleary MD, [facility]. CONFI DENTI AL Not Available [facility] ([facility]) [address] [place] [address], [place], [address], 08/14/2020 11:15:59 08/12/19 21 08/13/2020 HPV DNA, high- risk HPV high risk NOT DETECT ED normal Not Available [facility] ([facility] [employer]) [address] [place] [address], [place], [address], 08/14/2020 11:15:59 Result Notes None recorded. Problems Name Problem SNOMED Code Status Onset Date Resolution Date Notes Provider Name and Address Organization Details Recorded Time Screening for malignant neoplasm of cervix Active 2010 Pap Smear;Pra ctice ID: 0001 Not Available [facility] 0 19:03:51 Screening for malignant neoplasm of rectum Active 2010 Screening for malignant neoplasms of the rectum;Pr actice ID: 0001 Not Available [facility] 0 19:03:51 Breast lump 37795130 Active 2011 Lump or mass in breast;Pr actice ID: 0001 Not Available [facility] 0 19:03:51 Vaginitis and vulvovagi nitis Active 2011 Vaginitis and vulvovagi nitis, unspecifi ed;Practi ce ID: 0001 Not Available [facility] 0 19:03:51 Dyspareun ia 48784584 Active 2011 Dyspareun ia;Practi ce ID: 0001 Not Available [facility] 0 19:03:51 Adult health examinati on Active 2011 Routine general medical examinati on at a health care facility; Practice ID: 0001 Not Available [facility] 0 19:03:51 Specializ ed medical examinati on Active 2011 Routine gynecolog ical examinati on;Practi ce ID: 0001 Not Available [facility] 0 19:03:52 Health condition feared but not present 45332306686 9109 Active 2013 Person with feared complaint in whom no diagnosis was made;Prac osvaldo ID: 0001 Not Available [facility] 0 19:03:52 Overweigh t 457249392 Active 2013 Overweigh t;Practic e ID: 0001 Not Available [facility] 0 19:03:52 Glycosuri a 49595936 Active 2013 Glycosuri a;Practic e ID: 0001 Not Available [facility] 0 19:03:[address] Concept Active 2014 Encntr for general adult medical exam w/o abnormal findings; Practice ID: 0001 Not Available [facility] 0 19:03:[address] Concept Active 2014 Encntr for obstetrician gynecologist exam (general) (routine) w/o abn findings; Recorded Elsewhere : No Locati on: [facility] So urce: EHR Chron ic: N Practic e ID: 0001 Bill able Time: 08:30:00 AM Not Available [facility] 0 19:03:53 Body mass index 30+ - obesity 981413823 Active 2017 Body mass index (BMI) 33.0-33.9 , adult;Rec orded Elsewhere : No Locati on: [facility] So urce: EHR Chron ic: N Practic e ID: 0001 Bill able Time: 01:30:00 PM Not Available [facility] 0 19:03:53 Problem Notes None recorded. Medical Equipment None Reported. Allergies Allergen ID Allergen Name Allergen Category Reaction Reaction Severity Criticality Documentation Date Start Date Code Code System Note Provider Name and Address Organization Details Recorded Time 9789 naproxen medicatio n Not available Not available Not available 07/25/2020 7258 RxNorm Comme nt: [facility]; Not Available [facility] 0 14:14:44 9795 omeprazol e medicatio n Not available Not available Not available 07/25/2020 7646 RxNorm Comme nt: [facility]at [facility]; Not Available [facility] 0 14:14:44 9800 losartan medicatio n Not available Not available Not available 07/25/2020 77152 RxNorm Comme nt: [facility]at [facility]; Not Available [facility] 0 14:14:44 9807 valsartan medicatio n Not available Not available Not available 07/25/2020 07342 RxNorm Comme nt: [facility]at [facility] Cau sativ e Agent : Exfor ge; Not Available [facility] 0 14:14:44 9810 epinephri ne medicatio n Not available Not available Not available 07/25/2020 3992 RxNorm React ion: dizzy ; Comme nt: [facility]at [facility]; Not Available [facility] 0 14:14:44 9817 hydrochlo rothiazid e medicatio n Not available Not available Not available 07/25/2020 5487 RxNorm Comme nt: [facility]at [facility] Cau sativ e Agent : Exfor ge HCT; Not Available [facility] 0 14:14:44 9823 adhesive tape environme nt,medica tion Not available Not available Not available 07/25/2020 44665 UNK Comme nt: [facility]at [facility]; Not Available [facility] 0 14:14:44 Medications Name Sig Start Date Stop Date Status Note LastModified by Organization Details LastModified Time multivita min tablet active Prescrib ed Elsewher e: Yes Loca tion: Sergio rascon [facility] odify By: [email or web address] Encount er DateTime : 02/03/20 19 10:45:00 AM Not Available Not Available Not Available carvedilo l 12.5 mg tablet take 1 tablet by oral route 2 times every day with food 2017 active Prescrib ed Elsewher e: Yes Loca tion: Sergio rascon [facility] odify By: ruby diamondunter DateTime : 01/18/20 18 01:30:00 PM Not Available Not Available Not Available clonidine 0.1 mg/24 hr weekly transderm al patch apply 1 patch by transder mal route every week 06/11 completed Prescrib ed Elsewher e: Yes Loca tion: Sergio rascon [facility] odify By: allen diamonduntla nena DateTime : 12/09/19 12 11:45:00 AM Not Available Not Available Not Available metformin 850 mg tablet take 1 tablet by oral route 2 times every day with morning and evening meals active Prescrib ed Elsewher e: Yes Loca tion: Merle tarah [facility] odify By: suzy wakefield DateTime : 06/08/20 12 08:30:00 AM Not Available Not Available Not Available amlodipin e 2.5 mg tablet take 1 tablet by oral route every day 2016 active Prescrib ed Elsewher e: Yes Loca tion: Sergio rascon [facility] odify By: ruby diamonduntla nena DateTime : 11/10/19 17 08:30:00 AM Not Available Not Available Not Available glimepiri de 1 mg tablet take 1 tablet by oral route every day 06/11 completed Prescrib ed Elsewher e: Yes Loca tion: Sergio rascon [facility] odify By: allen coyle DateTime : 05/13/20 11 11:30:00 AM Not Available Not Available Not Available Amaryl 4 mg tablet take 1 tablet by oral route every day 06/19 completed Prescrib ed Elsewher e: Yes Loca tion: Sergio rascon [facility] odify By: harry Tarah ncounter DateTime : 05/11/20 11 09:55:26 AM Not Available Not Available Not Available aspirin 500 mg tablet take 2 tablet by oral route every 6 hours as needed active Prescrib ed Elsewher e: Yes Loca tion: Sergio rascon [facility] odify By: suzy Jerome ter DateTime : 06/08/20 12 08:30:00 AM Not Available Not Available Not Available cefadroxi l 500 mg capsule take 2 capsule (1G) by oral route every day 06/11 completed Prescrib ed Elsewher e: No Locat ion: Sergio rascon [facility] odify By: allen Tarah ncounter DateTime : 02/03/20 12 08:38:23 AM Not Available Not Available Not Available Vitamin D3 10 mcg (400 unit) tablet active Prescrib ed Elsewher e: Yes Loca tion: Sergio rascon [facility] odify By: [email or web address] Encount er DateTime : 02/03/20 19 10:45:00 AM Not Available Not Available Not Available pravastat in 10 mg tablet take 1 tablet by oral route every day active Prescrib ed Elsewher e: Yes Loca tion: Sergio rascon [facility] odify By: kae Alexander r DateTime : 05/11/20 11 09:55:26 AM Not Available Not Available Not Available Norvasc 5 mg tablet take 1 tablet by oral route every day 02/02 completed Prescrib ed Elsewher e: Yes Loca tion: Sergio rascon [facility] odify By: [email or web address] Encount er DateTime : 06/08/20 12 08:30:00 AM Not Available Not Available Not Available hydrochlo rothiazid e 12.5 mg capsule take 2 capsule by oral route every day active Prescrib ed Elsewher e: Yes Loca tion: Sergio rascon [facility] odify By: kae Alexander r DateTime : 05/11/20 11 09:55:26 AM Not Available Not Available Not Available Luiz's wort 150 mg capsule active Prescrib ed Elsewher e: Yes Loca tion: Sergio rascon [facility] odify By: suzy Jerome ter DateTime : 05/13/20 11 11:30:00 AM Not Available Not Available Not Available Vitamin B-6 50 mg tablet active Prescrib ed Elsewher e: Yes Loca tion: Sergio rascon [facility] odify By: Encount er DateTime : 02/03/20 19 10:45:00 AM Not Available Not Available Not Available Vitamin D2 1,250 mcg (50,000 unit) capsule take 1 capsule by oral route every week for 8 weeks. 02/02 completed Prescrib ed Elsewher e: No Locat ion: Sergio rascon [facility] odify By: [email or web address] Encount er DateTime : 07/02/20 15 04:48:17 PM Not Available Not Available Not Available Terazol 7 0.4 % vaginal cream insert 1 applicat orful by vaginal route every day for 7 days at bedtime 02/01 completed Prescrib ed Elsewher e: No [facility]at [facility] odify By: [email or web address] Jerome ter DateTime : 01/27/20 12 11:00:00 AM Not Available Not Available Not Available lisinopri l 2.5 mg tablet take 1 tablet by oral route every day active Prescrib ed Elsewher e: Yes Loca tion: Sergio rascon [facility] odify By: suzy Jerome ter DateTime : 05/13/20 11 11:30:00 AM Not Available Not Available Not Available Stanback Headache Powder 650 mg oral packet 07/30 completed Prescrib ed Elsewher e: Yes Loca tion: Sergio rascon [facility] odify By: ruby Rascon ncounter DateTime : 12/09/19 12 11:45:00 AM Not Available Not Available Not Available Avandamet 2 mg-1,000 mg tablet take 1 tablet by oral route 2 times every day with meals 06/11 completed Prescrib ed Elsewher e: Yes Loca tion: Sergio rascon [facility] odify By: allen Rascon ncounter DateTime : 05/11/20 11 09:55:26 AM Not Available Not Available Not Available metoprolo l tartrate 25 mg tablet take 1 tablet by oral route 2 times every day 06/08 completed Prescrib ed Elsewher e: Yes Loca tion: Sergio rascon [facility] odify By: suzy wakefield DateTime : 05/13/20 11 11:30:00 AM Not Available Not Available Not Available Lantus U-100 Insulin 100 unit/mL subcutane ous cartridge inject by subcutan eous route as per insulin protocol active Prescrib ed Elsewher e: Yes Loca tion: Sergio rascon [facility] odify By: suzy wakefield DateTime : 06/08/20 12 08:30:00 AM Not Available Not Available Not Available Apidra U-100 Insulin 100 unit/mL subcutane ous solution inject by subcutan eous route as per insulin sliding scale protocol active Prescrib ed Elsewher e: Yes Loca tion: Sergio rascon [facility] odify By: donald wakefield DateTime : 01/03/20 14 10:00:00 AM Not Available Not Available Not Available Januvia 25 mg tablet 06/08 completed Prescrib ed Elsewher e: Yes Loca tion: Sergio rascon [facility] odify By: suzy wakefield DateTime : 05/11/20 11 09:55:26 AM Not Available Not Available Not Available Tekturna 150 mg tablet take 1 tablet by oral route every day 06/08 completed Prescrib ed Elsewher e: Yes Loca tion: Sergio rascon [facility] odify By: suzy wakefield DateTime : 05/11/20 11 09:55:26 AM Not Available Not Available Not Available Bystolic 2.5 mg tablet take 2 tablet by oral route every day 11/09 completed Prescrib ed Elsewher e: Yes Loca tion: Sergio rascon [facility] odify By: ruby Rascon ncounter DateTime : 12/09/19 12 11:45:00 AM Not Available Not Available Not Available omega 3-dha-epa -fish oil 180 mg-270 mg capsule active Prescrib ed Elsewher e: Yes Loca tion: Sergio rascon [facility] odify By: suyz wakefield DateTime : 05/13/20 11 11:30:00 AM Not Available Not Available Not Available Vitals Date Recorded Body height Body mass index (BMI) Body weight Systolic blood pressure Diastolic blood pressure Provider Name and Address Organization Details Last Updated DateTime 08/12/2020 162.56 cm 34.8 kg/m2 97226.25 g 96 mm[Hg] 62 mm[Hg] Lauren Oviedo [facility] 10:05:12 Social History None recorded. Functional Status None recorded. Mental Status None recorded. Family History Nothing Reported Notes:Brother: Diabetes punete itus Father: Diabetes mellitus, Hypertension Maternal aunt: Cancer, lung, Cancer, breast Maternal uncle: Cancer, lung MG Aunt: Cancer, breast Mother: Lung disease Sister: Cancer, breast, Cancer, cervical, Diabetes mellitus Medical History Condition Response Diabetes Y Hypertension Y High Cholesterol Y Gynecological History Statement/Question Response Current Control Method None Obstetrics History GPAL:G 0 P 0 0 0 0 Past Encounters Encounter ID Performer Location Encounter Start Date Encounter Closed Date Diagnosis/Indication Diagnosis SNOMED-CT Code Diagnosis ICD10 Code Diagnosis Note [id number] Madeline Moore [facility] [address] [address] 08/12/2020 09:55:00 08/12/2020 11:51:27 Gynecologic examination 41093772 Z01.419 Take Calcium with Vitamin D 12-1500mg daily. Do monthly self breast exams. It is advised to get annual flu shot in the fall and she could obtain at [facility] or [facility] clinic. If you haven't received the Tdap vaccine in the last 10 years you should obtain one as well. Have mammogram yearly, bone density every 2-3 years and colonoscop y every 5-10 years depending on findings and history. Engage in daily exercise of low impact aerobic exercise 45-60 minutes 4-5 times weekly. Avoid tobacco and illicit drugs as well as using moderation with alcohol intake less than 1-2 8 oz beverages daily. This lifestyle behavior pattern will lead to less health conditions and longer life span. If BMI greater than 25 weight watchers or dietary consult advised. Questions have been answered. Patient appears to understand instructio ns, but if you have any further questions call or respond to this email Pap/hpv sent Reviewed guidelines pap/hpv. 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 Mammo ordered PCP [facility] Concerns Section Related Observation LastModified by Organization Detai ls LastModified Time None Recorded Concern Status LastModified by Organization Details LastModified Time None Recorded Advance Directives Directive None Recorded Payers Encounter Date Sequence Insurance Name Policy Number Policy Peters Covered Member ID Peters Member ID Guarantor Name 08/12/2020 1 [facility] - DOS PRIOR TO 2021 (MEDICAID REPLACEMENT - HMO) Cira Myrick [id number] Cira Myrick Notes Date Note Type Note Provider Name and Address Organization Details Recorded Time 08/12/2020 text/html Annual GYNReport ed bypatient.History: no gynecologic complaints Menstrual cycle:postmenopaus e Urinary symptoms:No hematuria; No incontinence Vulva:No genital lesion Vagina:Normal vaginal discharge Breast:No breast pain; No breast lump; No nipple discharge Current Contraception:Not sexually active Sexual complaints:No sexual complaints; No pain during intercourse; Normal libido Menopausal Symptoms:No menopausal symptoms; Normal vaginal lubrication Psychological symptoms:No depression; No anxiety; No PMDD Preventive measures:Encourage self breast examination; Encourage regular exercise; Encourage no tobacco use; Encourage regular mammograms starting age 40; Followed with Q3 year pap smear and high risk HPV typing; Needs to schedule mammogram; Up to date on colonoscopy screening; Dexa ordered PCP RICHAR Salguero-BC [address], [place], [address], [facility] 08/12/2020 10:33:02 OBGyn Episode No OBEpisode recorded.
--- OUTSIDE RECORDS SUMMARY | 2024-10-01 06:59 | XMS_ITS | Continuity of Care Document ---
Author Organization [facility] Address [address] [place] [address] Phone Care Team Providers Care Generator Worker Name Role Phone Ej Rosa Unavailable Unavailable Procedures Procedure Date Office/outpatient Visit, Est Office/outpatient Visit, Est No Script Office/outpatient Visit, Est Office/outpatient Visit, Est Eye Exam Established Pt Ophthalmoscopy, Subsequent Ophthalmoscopy, Subsequent Office Consultation Office/outpatient Visit, Est Office/outpatient Visit, Est Fundus Photography W/ Report Office/outpatient Visit, Est Office/outpatient Visit, Est Advance Directives Directive Yes / No Effective Date File Name No Information Encounters Encounter Description Practice Location Reason(s) For Visit Diagnoses Date Provider Providers Copied on Encounter Office/outpati ent Visit, [facility] [place] [address] [place] [address] [address], [place], [place], [id number], [place] tel:[phone] [facility] No Information 0 Shelley Pagan. [address] , [address], [place], [address], [place]. tel:[phone] Office/outpati ent Visit, [facility] [place], [address], [place], [place], [id number], [place] tel:[phone] [facility] No Information 6 9 Shelley Pagan. [address], [address], [place], [address], [place]. tel:[phone] Office/outpati ent Visit, [facility], [address], [place], [place], [address], [place] tel:[phone] [facility] No Information 9 Inocencia Georges. [address] [place], [address], [place]. tel:[phone] Office/outpati ent Visit, [facility], [address] [place] [address] [address], [place], [place], [id number], [place] tel:[phone] [facility] No Information 0 8 Shelley Pagan. [address] [facility] [address] , [address], [place], [address], [place]. tel:[phone] [facility], [address], [place], [place], [id number], [place] tel:[phone] [facility] No Information 8 Inocencia Georges. [address] [place], [address], [place]. tel:[phone] Referring Provider: José Manuel Eldridge, [address] [place], [address]. tel:[phone] Office Consultation [facility], [address] [place] [address] [address], [place], [place], [id number], [place] tel:[phone] [facility] No Information 200 8 Inocencia Georges. [address] [place], [address], [place]. tel:[phone] Referring Provider: Ej Lara, [address], [place], [address]. tel:[phone] Office/outpati ent Visit, [facility] [place], [address] [place] [address] [address], [place], [place], [address], tel:[phone] [facility] No Information 2 2200 8 Shelley Pagan. [address] [facility] , [address], [place], [place], [facility], . tel:[phone] Office/outpati ent Visit, [facility] [place], [address] [place] [address] [address], [place], [place], [id number], [place] tel:[phone] [facility] No Information 2-200 7 Shelley Pagan. [address] [facility] , [address], [place], [facility], . tel:[phone] Referring Provider: Ej Lara, [address] [place] [address], [place], [facility]. tel:[phone] Office/outpati ent Visit, [facility] [place], [address] [place] [address] [address], [place], [place], [address], tel:[phone] [facility] No Information 2 200 7 Shelley Pagan. [address] [facility], [address], [place], [facility], . tel:[phone] Office/outpati ent Visit, [facility], [address] [place] [address] [address], [place], [place], [address], [place] tel:[phone] [facility] No Information [phone] Shelley Pagan. [address] [facility] [address], [address], [place], [facility], . tel:[phone] Family History Family Member Type Diagnosis Age At Onset No Information Payers Payer name Insurance type Covered republican ID Tonia carly(s) [employer] [place] Out [place] [id number] Social History Type Description Quantity Date Captured Comments Sex Female Smoking Status No Information Chief Complaint And Reason For Visit No Information Reason For Referral Reason For Referral No Information History Of Present Illness Encounter Date Complaint History Of Prese nt Illness No Information Functional Status Date Functional Assessmen t No Information Instructions Date Instruction Additional Infor mation No Information Assessments Type Assessment Date No Information Patient Care Teams Name Effective Dates (start - stop) Status Members No Information
--- OUTSIDE RECORDS SUMMARY | 2024-10-01 06:59 | XMS_ITS | Continuity of Care Document ---
Author Organization [facility] Address [address] [facility] [address] [place] [address] Phone Care Team Providers Care Licensing Manager Name Role Phone Tito Al PT Unavailable Unavailable Procedures Procedure Date Therapeutic Activities Neuromuscular Re-Ed Therapeutic Activities Neuromuscular Re-Ed Therapeutic Activities Neuromuscular Re-Ed Therapeutic Activities Neuromuscular Re-Ed Therapeutic Activities Neuromuscular Re-Ed Therapeutic Activities Neuromuscular Re-Ed Therapeutic Activities Neuromuscular Re-Ed Therapeutic Activities Neuromuscular Re-Ed Therapeutic Activities Neuromuscular Re-Ed Therapeutic Activities Neuromuscular Re-Ed Therapeutic Activities Neuromuscular Re-Ed Therapeutic Activities Neuromuscular Re-Ed Therapeutic Activities Neuromuscular Re-Ed Therapeutic Activities Neuromuscular Re-Ed Progress Note Therapeutic Activities Neuromuscular Re-Ed Therapeutic Activities Neuromuscular Re-Ed Therapeutic Activities Neuromuscular Re-Ed Therapeutic Activities Neuromuscular Re-Ed Therapeutic Activities Neuromuscular Re-Ed Therapeutic Activities Neuromuscular Re-Ed Therapeutic Activities Neuromuscular Re-Ed Therapeutic Activities Neuromuscular Re-Ed Therapeutic Activities Neuromuscular Re-Ed Doc neg elder mal no plan PRES/ABSN URINE INCON ASSESS PT Evaluation Low Complexity Therapeutic Activities Neuromuscular Re-Ed Therapeutic Activities Neuromuscular Re-Ed Therapeutic Exercise Therapeutic Activities Neuromuscular Re-Ed Therapeutic Exercise Therapeutic Activities Neuromuscular Re-Ed Therapeutic Exercise Therapeutic Activities Neuromuscular Re-Ed Therapeutic Exercise Therapeutic Activities Neuromuscular Re-Ed Therapeutic Exercise Therapeutic Activities Neuromuscular Re-Ed Therapeutic Exercise Progress Note Therapeutic Activities Neuromuscular Re-Ed Therapeutic Exercise Therapeutic Activities Neuromuscular Re-Ed Therapeutic Exercise Neuromuscular Re-Ed Therapeutic Exercise Therapeutic Activities Progress Note Therapeutic Activities Neuromuscular Re-Ed Therapeutic Exercise Therapeutic Activities Therapeutic Activities Therapeutic Exercise Neuromuscular Re-Ed Therapeutic Activities Neuromuscular Re-Ed Therapeutic Exercise Therapeutic Activities Neuromuscular Re-Ed Therapeutic Exercise Therapeutic Activities Therapeutic Exercise Therapeutic Activities Neuromuscular Re-Ed Therapeutic Activities Neuromuscular Re-Ed Therapeutic Exercise Therapeutic Activities Neuromuscular Re-Ed Therapeutic Exercise Therapeutic Activities Neuromuscular Re-Ed Therapeutic Exercise Manual Therapy Doc neg elder mal no plan PRES/ABSN URINE INCON ASSESS PT Evaluation Moderate Complexity Therapeutic Activities Neuromuscular Re-Ed Manual Therapy Advance Directives Directive Yes / No Effective Date File Name No Information Encounters Encounter Description Practice Location Reason(s) For Visit Diagnoses Date Provider Providers Copied on Encounter [facility], [id number], tel:[phone] [facility] No Information Servando Schmidt . Referring Provider: Kieran Fletcher, [address] [place], [address]. tel:[phone] [facility] [address] [employer] [address] [place] [address], [id number], tel:[phone] [facility] No Information Servando Schmidt . Referring Provider: Kieran Fletcher, [address] [place], [address]. tel:[phone] [facility] [employer], [id number], tel:[phone] [facility] No Information Servando Schmidt . Referring Provider: Kieran Fletcher, [address] [place], [address]. tel:[phone] [facility] [address], [place], [place], [address], [place] tel:[phone] [place] No Information Servando Tito. . Referring Provider: Kieran Fletcher, [address] [place], [address]. tel:[phone] [facility] [address], [place], [place], [address], [place] tel:[phone] [place] No Information Servando Tito. . Referring Provider: Kieran Fletcher, [address] [place], [address]. tel:[phone] [facility] [address], [place], [place], [address], [place] tel:[phone] [place] No Information Servando Tito. . Referring Provider: Kieran Fletcher, [address] [place], [address]. tel:[phone] [facility] [address], [place], [address], [place] tel:[phone] [place] No Information Servando Tito. . Referring Provider: Kieran Fletcher, [address] [place], [address]. tel:[phone] [facility], [place], [place], [address], [place] tel:[phone] [place] No Information Servando Tito. . Referring Provider: Kieran Fletcher, [address] [place], [address]. tel:[phone] [facility], [address], [place], [place], [address], [place] tel:[phone] [place] No Information Servando Tito. . Referring Provider: Kieran Fletcher, [address] [place], [address]. tel:[phone] [facility] [address], [place], [place], [address], [place] tel:[phone] [place] No Information Servando Tito. . Referring Provider: Kieran Fletcher, [address] [place], [address]. tel:[phone] [facility] [address], [place], [place], [address], [place] tel:[phone] [place] No Information Servando Tito. . Referring Provider: Kieran Fletcher, [address] [place], [address]. tel:[phone] [facility] [address], [place], [place], [address], [place] tel:[phone] [place] No Information Servando Tito. . Referring Provider: Kieran Fletcher, [address] [place], [address]. tel:[phone] [facility] [address], [place], [place], [address], [place] tel:[phone] [place] No Information Servando Pabonyn. . Referring Provider: Kieran Fletcher, [address] [place], [address]. tel:[phone] [facility] [address], [place], [place], [address], [place] tel:[phone] [place] No Information Servando Tito. . Referring Provider: Kieran Fletcher, [address] [place], [address]. tel:[phone] [facility] [address], [place], [place], [address], [place] tel:[phone] [place] No Information Servando Tito. . Referring Provider: Kieran Fletcher, [address] [place], [address]. tel:[phone] [facility] [address], [place], [place], [address], [place] tel:[phone] [place] No Information Servando Tito. . Referring Provider: Kieran Fletcher, [address] [place], [address]. tel:[phone] [facility] [address], [place], [place], [address], [place] tel:[phone] [place] No Information Servando Tito. . Referring Provider: Kieran Fletcher, [address] [place], [address]. tel:[phone] [facility] [address], [place], [place], [address], [place] tel:[phone] [place] No Information Servando Tito. . Referring Provider: Kieran Fletcher, [address] [place], [address]. tel:[phone] [facility] [address], [place], [place], [address], [place] tel:[phone] [place] No Information Servando Tito. . Referring Provider: Kieran Fletcher, [address] [place], [address]. tel:[phone] [facility] [address], [place], [place], [address], [place] tel:[phone] [place] No Information Servando Tito. . Referring Provider: Kieran Fletcher, [address] [place], [address]. tel:[phone] [facility] [address], [place], [place], [address], [place] tel:[phone] [place] No Information Servando Pabonyn. . Referring Provider: Kieran Fletcher, [address] [place], [address]. tel:[phone] [facility], [address], [place], [place], [address], [place] tel:[phone] [place] No Information Otoniel Hauser. . Referring Provider: Kieran Fletcher, [address] [place], [address]. tel:[phone] [facility] [address], [place], [place], [address], tel:[phone] [place] No Information Servando Tito. . Referring Provider: Kieran Fletcher, [address] [place], [address]. tel:[phone] [facility], [address], [place], [place], [address], [place] tel:[phone] [place] No Information Servando Tito. . Referring Provider: Kieran Fletcher, [address] [place], [address]. tel:[phone] [facility] [address], [place], [address], [place] tel:[phone] [place] No Information Servando Tito. . Referring Provider: Anson Dumont, [address], [place], [address]. tel:[phone] [facility], [place], [place], [address], [place] tel:[phone] [place] No Information Servando Tito. . Referring Provider: Anson Dumont, [address], [place], [address]. tel:[phone] [facility], [address], [place], [place], [address], [place] tel:[phone] [place] No Information Servando Tito. . Referring Provider: Anson Dumont, [address], [place], [address]. tel:[phone] [facility], [place], [place], [address], [place] tel:[phone] [place] No Information Servando Tito. . Referring Provider: Anson Dumont, [address], [place], [address]. tel:[phone] [facility] [address], [place], [place], [address], [place] tel:[phone] [place] No Information Servando Tito. . Referring Provider: Anson Dumont, [address], [place], [address]. tel:[phone] [facility], [address], [place], [place], [address], [place] tel:[phone] [place] No Information Servando Tito. . Referring Provider: Anson Dumont, [address], [place], [address]. tel:[phone] [facility] [address], [place], [address], [place] tel:[phone] [place] No Information Servando Tito. . Referring Provider: Anson Dumont, [address], [place], [address]. tel:[phone] [facility], [place], [place], [address], [place] tel:[phone] [place] No Information Servando Tito. . Referring Provider: Anson Dumont, [address], [place], [address]. tel:[phone] [facility] [address], [place], [place], [address], [place] tel:[phone] [place] No Information Lurtz Analisa. . Referring Provider: Anson Dumont, [address], [place], [address]. tel:[phone] [facility], [address], [place], [place], [address], [place] tel:[phone] [place] No Information Servando Tito. . Referring Provider: Anson Dumont, [address], [place], [address]. tel:[phone] [facility], [address], [place], [place], [address], [place] tel:[phone] [place] No Information Lurtz Analisa. . Referring Provider: Anson Dumont, [address], [place], [address]. tel:[phone] [facility], [address], [place], [place], [address], [place] tel:[phone] [place] No Information Servando Tito. . Referring Provider: Anson Dumont, [address], [place], [address]. tel:[phone] [facility], [place], [place], [address], [place] tel:[phone] [place] No Information Servando Tito. . Referring Provider: Anson Dumont, [address], [place], [address]. tel:[phone] [facility], [place], [place], [address], [place] tel:[phone] [place] No Information Yulietrtz Analisa. . Referring Provider: Anson Dumont, [address], [place], [address]. tel:[phone] [facility], [address], [id number], tel:[phone] [facility] No Information Otoniel Sarmientoly. . Referring Provider: Anson Dumont, [address], [place], [address]. tel:[phone], [id number], tel:[phone] [facility] No Information Otoniel Sarmientoly. . Referring Provider: Anson Dumont, [address], [place], [address]. tel:[phone] [facility], [address] [place] [address], [id number], tel:[phone] [facility] No Information Servando Francis. . Referring Provider: Anson Dumont, [address], [place], [address]. tel:[phone], [id number], tel:[phone] [facility] No Information Servando Schmidt . Referring Provider: Anson Dumont, [address], [place], [address]. tel:[phone] Family History Family Member Type Diagnosis Age At Onset No Information Payers Payer name Insurance type Covered democrat ID Minor carroll(s) [facility] [employer] [id number] Social History Type Description Quantity Date Captured [...]
--- OUTSIDE RECORDS SUMMARY | 2024-10-01 06:59 | XMS_ITS | Clinical Summary ---
Author Organization [facility] Address [address] [place] [address] Care Team Providers Care Wastewater Project Manager Name Role Phone Rigo Courtney MD Primary Care Provider [phone] Source Comments [facility],non-owned Affiliates and Associated Physician Practices is amultiple site organization consisting of ambulatory clinics and hospital sitesin [place], [place], [place] and [place]. This disclosure is being madepursuant to the Care Everywhere program and may not contain all information available regarding this patient. Last updated 18.[facility] [employer] Allergies No known active allergies Social History Tobacco Use Types Packs/Day Years Used Date Smoking Tobacco: Never Assessed Sex and Gender Information Value Date Recorded Sex Assigned at Not on file Gender Identity Not on file Sexual Orientation Not on file Plan of Treatment Health Maintenance Due Date Last Done Comments BONE DENSITY TESTING 1957 COLOGUARD (AGES 45-75) - COL ON CA SCREENING 1957 COLON MONITORING 1957 COLONOSCOPY - COLON CA SCREENING 1957 CT COLONOGRAPHY - COLON CA SCREENING 1957 Colorectal Cancer Screening 1957 FIT - COLON CA SCREENING 1957 FLEX SIG - COLON CA SCREENING 1957 LIPID TESTING 1957 MAMMOGRAM 1957 HEPATITIS C SCREENING 09/01/1975 DTAP/TDAP/TD VACCINES (1 - Tdap) 1976 PNEUMOCOCCAL VACCINE 50+ (1 of 1 - PCV) 2007 ZOSTER VACCINE (1 of 2) 2007 COVID-19 VACCINE ( - 2023-2 5 season) 2024 INFLUENZA VACCINE (#1) 2024 DEPRESSION SCREENING 08/08/2024 Respiratory Syncytial Virus (RSV) Vaccine Pt: or over 60 yrs (1 - 1-dose 75+ series) 2032 HEPATITIS B VACCINE Aged Out No longe r eligible based on patient's age to complete this topic HIB VACCINE Aged Out No longer eligi ble based on patient's age to complete this topic HPV VACCINE Aged Out No longer eligi ble based on patient's age to complete this topic MENINGOCOCCAL (Group B) VACCINE Aged Out No longer eligible based on patient's age to complete this topic MENINGOCOCCAL VACCINE Aged Out No darien landry eligible based on patient's age to complete this topic Care Teams Wastewater Project Manager Relationship Specialty Start Date End Date Rigo Courtney MD [address] [place] [address] PCP - General Internal Medicine 11/26/16
--- OUTSIDE RECORDS SUMMARY | 2024-10-01 06:59 | XMS_ITS | Patient Health Summary ---
Author Organization [facility] Address [address] [place] [address] Care Team Providers Care Technical Services Analyst Name Role Phone Rigo Courtney MD Primary Care Provider [phone] Note from [facility],non-owned Affiliates and Associated Physician Practices is amultiple site organization consisting of ambulatory clinics and hospital sitesin [place], [place], [place] and [place]. This disclosure is being madepursuant to the Care Everywhere program and may not contain all information available regarding this patient. Last updated 18.[facility] [employer] Allergies No known active allergies Social History Tobacco Use Types Packs/Day Years Used Date Smoking Tobacco: Never Assessed Sex and Gender Information Value Date Recorded Sex Assigned at Not on file Gender Identity Not on file Sexual Orientation Not on file Procedures * SKIN TEST PPD - POINT OF CARE(Performed 11/28/2016) Performed for Screening for tuberculosis Results * SKIN TEST PPD - POINT OF CARE (11/28/2016) PPD NEGATIVE Comment:NO INDURATION MISCELLANEOUS SAMPLE S / Unknown 11/28/2016 Luis Alfredo Burciaga [facility] - POINT OF CARE ORDERABLES Care Teams Technical Services Analyst Relationship Specialty Start Date End Date Rigo Courtney MD [address] [place] [address] PCP - General Internal Medicine 11/26/16
== END 2024-10-01 06:56 | disposition home or self-care (01) ==
PROVIDERS: PCP Family Medicine; Visit Provider Neurological Surgery
DX: M47.812 Spondylosis without myelopathy or radiculopathy, cervical region (principal); R26.89 Other abnormalities of gait and mobility
CPT/HCPCS: 72141

== ENCOUNTER 2024-12-19 15:55 | Outpatient (CLI) | payer MEDICARE, SELFPAY ==
--- NOTE | ~2024-12-19 | XR_ITS ---
XR hip LT 2V w AP pelvis 12/19/2024 16:18 Indication: Left hip pain Procedure: AP pelvis and 2 views left hip Comparison: 06/12/2018 Findings: There is moderate lower lumbar spondylosis partially visualized. Pelvic rings are intact. N o lytic or blastic lesions. No significant joint space narrowing of the hips. No fracture or traumati c malalignment. Impression: 1: No acute abnormality of the hips. Reviewed, dictated and finalized at location A. Impression: 1: No acute abnormality of the hips.
== END 2024-12-19 15:56 | disposition home or self-care (01) ==
LOC: GOSHIMG 15:56
PROVIDERS: PCP Family Medicine; Visit Provider Family Medicine
DX: M89.8X8 Other specified disorders of bone, other site (principal)
CPT/HCPCS: 73502

== ENCOUNTER 2025-02-05 07:52 | Outpatient (CLI) | payer MEDICARE, SELFPAY ==
--- OUTSIDE RECORDS SUMMARY | 2025-02-05 07:57 | XMS_ITS | Data Portability ---
Author Organization [facility] Address [address] [place] [address] Assessment Encounter Date Assessment Date Assessment LastModified [...] Abnormal Flag Note LastModifiedBy Organization Detail LastModifiedTime 08/12/19 21 08/14/2020 pap, LB Pap test thin prep Negati ve for Intrae pithel ial Lesion or Malign shanice normal ACCES LAUREN #: [id number] Sourc e: Cervi ronny/E ndoce rvica l LMP: 05/27 Date Taken : 08/12 Speci men Type: ThinP rep Vial Date Repor dana: 021 Clini ronny Data: Cytot ech: Treas a Deori s, CT( CP) Date Repor dana: 021 Speci men Adequ acy: Satis facto ry for evalu ation Gener al Categ oriza tion: NEGAT GUSTAVO FOR INTRA EPITH ELIAL LESIO N OR MALIG TRINA Inter preta tion/ Resul t: Atrop hy This speci men has been cristiana zed by the ThinP rep Imagi ng angela Henderson inter activ e compu ter syste m which blanca ts the lab in the kendell lopez of ThinP rep Pap Test slide newton toney imagi ng, the slide was revie wed by a Cytot january logis t and/o r Patho logis t. Taz N A A S S A Y S R E P O R T TEST NAME RESUL JOVANA ----- ---- ----- -- HPV High Risk Kendell llamas (TMA) ThinP rep Vial The human papil lomav irus (HPV) High Risk Kendell llamas is an FDA-a pprov ed in-vi tro ampli fied nucle ic acid test for the quali tativ e detec tion of E6/E7 viral mRNA. Resul jovana decker be corre lated with patie nt prese ntati on, histo ry, cervi ronny cytol ogy and other clini ronny and labor atory findi ngs. See https ://Simparel/s ites/ defau lt/fi les/2 018-0 - 82089 _002_ 01.pd f for sumi llamas. Test perfo rmed by [facility], d/b/a [employer] [employer], [address] [facility], [place] [address] , Ana Baez ra, DO, Labor atory [facility]. HPV High Risk *HPV NOT DETEC DANA (TYPE S 16, 18, 31, 33, 35, 39, 45, 51, 52, 56, 58, 59, 66, 68) *HPV: The human papil lomav irus (HPV) High Risk Kendell llamas is an FDA-a pprov ed in-vi tro ampli fied nucle ic acid test for the quali tativ e detec tion of E6/E7 viral mRNA. Resul jovana decker be corre lated with patie nt prese ntati on, histo ry, cervi ronyn cytol ogy and other clini ronny and labor atory findi ngs. See https ://Simparel/s ites/ defau lt/fi les/2 018-0 3- 04686 _002_ 01.pd f for formerly [facility] er infor isabelle llamas. Test perfo rmed by [facility], d/b/a [facility], [address], [place] [address] , Ana Baez ra, DO, Labor atory [facility]. End of Repor t Techn ical servi clay provi ded by [facility] [employer] [facility], d/b/a [employer] [address] [place] [address] Marvel Oleary MD, [facility]. Case revie wed and diagn osis rende red at [facility] [employer], d/b/a [employer], [address] [place] [address] Marvel Oleary MD, [facility]. CONFI DENTI AL Not Available [facility] ([facility]) [address] [place] [address], [place], [address], 08/14/2020 11:15:59 08/12/19 21 08/13/2020 HPV DNA, high- risk HPV high risk NOT DETECT ED normal Not Available [facility] ([facility]) [address] [place] [address], [place], [address], 08/14/2020 11:15:59 Result Notes None recorded. Problems [...] Not Available [facility] 0 19:03:51 Breast lump 67681572 Active 2011 Lump or mass in breast;Pr actice ID: 0001 Not Available [facility] 0 19:03:51 Vaginitis and vulvovagi nitis Active 2011 Vaginitis and vulvovagi nitis, unspecifi ed;Practi ce ID: 0001 Not Available [facility] 0 19:03:51 Dyspareun ia 11345060 Active 2011 Dyspareun ia;Practi ce ID: 0001 Not Available [facility] 0 19:03:51 Adult health examinati on Active 2011 Routine general medical examinati on at a health care facility; Practice ID: 0001 Not Available [facility] 0 19:03:51 Specializ ed medical examinati on Active 2011 Routine gynecolog ical examinati on;Practi ce ID: 0001 Not Available [facility] 0 19:03:52 Health condition feared but not present [id number] 9109 Active 2013 Person with feared complaint in whom no diagnosis was made;Prac osvaldo ID: 0001 Not Available [facility] 0 19:03:52 Overweigh t 007869523 Active 2013 Overweigh t;Practic e ID: 0001 Not Available [facility] 0 19:03:52 Glycosuri a 32177936 Active 2013 Glycosuri a;Practic e ID: 0001 Not Available [facility] 0 19:03:[address] Concept Active 2014 Encntr for general adult medical exam w/o abnormal findings; Practice ID: 0001 Not Available [facility] 0 19:03:[address] Concept Active 2014 Encntr for director multimedia exam (general) (routine) w/o abn findings; Recorded Elsewhere : No Locati on: [facility] So urce: EHR Chron ic: N Practic e ID: 0001 Bill able Time: 08:30:00 AM Not Available [facility] 0 19:03:53 Body mass index 30+ - obesity 446278233 Active 2017 Body mass index (BMI) 33.0-33.9 , adult;Rec orded Elsewhere : No Locati on: [facility] So urce: EHR Chron ic: N Practic e ID: 0001 Bill able Time: 01:30:00 PM Not Available [facility] 0 19:03:53 Problem Notes None recorded. Medical Equipment None Reported. Allergies Allergen ID Allergen Name Allergen Category Reaction Reaction Severity Criticality Documentation Date Start Date Code Code System Note Provider Name and Address Organization Details Recorded Time 9789 naproxen medicatio n Not available Not available Not available 07/25/2020 7258 RxNorm Comme nt: [facility]; Not Available [facility] 0 14:14:44 9795 omeprazol e medicatio n Not available Not available Not available 07/25/2020 7646 RxNorm Comme nt: [facility]at [facility]; Not Available [facility] 0 14:14:44 9800 losartan medicatio n Not available Not available Not available 07/25/2020 92420 RxNorm Comme nt: [facility]at [facility]; Not Available [facility] 0 14:14:44 9807 valsartan medicatio n Not available Not available Not available 07/25/2020 94334 RxNorm Comme nt: [facility]at [facility] Cau sativ e Agent : Exfor ge; Not Available [facility] 0 14:14:44 9810 epinephri ne medicatio n Not available Not available Not available 07/25/2020 3992 RxNorm React ion: dizzy ; Comme nt: [facility]at [facility]; Not Available [facility] 0 14:14:44 9817 hydrochlo rothiazid e medicatio n Not available Not available Not available 07/25/2020 5487 RxNorm Comme nt: [facility] Cau sativ e Agent : Exfor ge HCT; Not Available [facility] 0 14:14:44 9823 adhesive tape environme nt,medica tion Not available Not available Not available 07/25/2020 67578 UNK Comme nt: [facility]at [facility]; Not Available [facility] 0 14:14:44 Medications Name Sig Start Date Stop Date Status Note LastModified by Organization Details LastModified Time multivita min tablet active Prescrib ed Elsewher e: Yes Loca tion: Sergio rascon [facility] odify By: Encount er DateTime : 02/03/20 19 10:45:00 AM Not Available Not Available Not Available carvedilo l 12.5 mg tablet take 1 tablet by oral route 2 times every day with food 2017 active Prescrib ed Elsewher e: Yes Loca tion: Sergio rascon [facility] odify By: ruby diamondunter DateTime : 01/18/20 18 01:30:00 PM Not Available Not Available Not Available clonidine 0.1 mg/24 hr weekly transderm al patch apply 1 patch by transder mal route every week 06/11 completed Prescrib ed Elsewher e: Yes Loca tion: Sergio rascon [facility] odify By: allen diamonduntla nena DateTime : 12/09/19 12 11:45:00 AM Not Available Not Available Not Available metformin 850 mg tablet take 1 tablet by oral route 2 times every day with morning and evening meals active Prescrib ed Elsewher e: Yes Loca tion: Sergio rascon [facility] odify By: suzy wakefield DateTime : 06/08/20 12 08:30:00 AM Not Available Not Available Not Available amlodipin e 2.5 mg tablet take 1 tablet by oral route every day 2016 active Prescrib ed Elsewher e: Yes Loca tion: Sergio rascon [facility] odify By: ruby diamonduntla nena DateTime : 11/10/19 17 08:30:00 AM Not Available Not Available Not Available glimepiri de 1 mg tablet take 1 tablet by oral route every day 06/11 completed Prescrib ed Elsewher e: Yes Loca tion: Sergio rascon [facility] odify By: allen coyle DateTime : 05/13/20 11 11:30:00 AM Not Available Not Available Not Available Amaryl 4 mg tablet take 1 tablet by oral route every day 06/19 completed Prescrib ed Elsewher e: Yes Loca tion: Sergio rascon [facility] odify By: harry Tarah lobounter DateTime : 05/11/20 11 09:55:26 AM Not Available Not Available Not Available aspirin 500 mg tablet take 2 tablet by oral route every 6 hours as needed active Prescrib ed Elsewher e: Yes Loca tion: Sergio rascon [facility] odify By: suyz Jerome ter DateTime : 06/08/20 12 08:30:00 AM Not Available Not Available Not Available cefadroxi l 500 mg capsule take 2 capsule (1G) by oral route every day 06/11 completed Prescrib ed Elsewher e: No Locat ion: Sergio rascon [facility] odify By: allen diamondunter DateTime : 02/03/20 12 08:38:23 AM Not Available Not Available Not Available Vitamin D3 10 mcg (400 unit) tablet active Prescrib ed Elsewher e: Yes Loca tion: Sergio rascon [facility] odify By: [email or web address] Encount er DateTime : 02/03/20 19 10:45:00 AM Not Available Not Available Not Available pravastat in 10 mg tablet take 1 tablet by oral route every day active Prescrib ed Elsewher e: Yes Loca tion: Sergio rascon [facility] odify By: kae Alexander r DateTime : 05/11/20 11 09:55:26 AM Not Available Not Available Not Available Norvasc 5 mg tablet take 1 tablet by oral route every day 02/02 completed Prescrib ed Elsewher e: Yes Loca tion: Sergio rascon [facility] odify By: [email or web address] Encount er DateTime : 06/08/20 12 08:30:00 AM Not Available Not Available Not Available hydrochlo rothiazid e 12.5 mg capsule take 2 capsule by oral route every day active Prescrib ed Elsewher e: Yes Loca tion: Sergio rascon [facility] odify By: kae Jeromete r DateTime : 05/11/20 11 09:55:26 AM Not Available Not Available Not Available Luiz's wort 150 mg capsule active Prescrib ed Elsewher e: Yes Loca tion: Sergio rascon [facility] odify By: suzy Jerome ter DateTime : 05/13/20 11 11:30:00 AM Not Available Not Available Not Available Vitamin B-6 50 mg tablet active Prescrib ed Elsewher e: Yes Loca tion: Sergio rascon [facility] odify By: [email or web address] Encount er DateTime : 02/03/20 19 10:45:00 AM Not Available Not Available Not Available Vitamin D2 1,250 mcg (50,000 unit) capsule take 1 capsule by oral route every week for 8 weeks. 02/02 completed Prescrib ed Elsewher e: No Locat ion: Sergio rascon [facility] odify By: Encount er DateTime : 07/02/20 15 04:48:17 PM Not Available Not Available Not Available Terazol 7 0.4 % vaginal cream insert 1 applicat orful by vaginal route every day for 7 days at bedtime 02/01 completed Prescrib ed Elsewher e: No [facility] By: tgingric h Queenie ter DateTime : 01/27/20 12 11:00:00 AM Not Available Not Available Not Available lisinopri l 2.5 mg tablet take 1 tablet by oral route every day active Prescrib ed Elsewher e: Yes [facility] odify By: suzy Jerome ter DateTime : 05/13/20 11 11:30:00 AM Not Available Not Available Not Available Stanback Headache Powder 650 mg oral packet 07/30 completed Prescrib ed Elsewher e: Yes Loca tion: Merle tarah [facility] odify By: ruby Rascon ncounter DateTime : 12/09/19 12 11:45:00 AM Not Available Not Available Not Available Avandamet 2 mg-1,000 mg tablet take 1 tablet by oral route 2 times every day with meals 06/11 completed Prescrib ed Elsewher e: Yes Loca tion: Sergio [facility] odify By: allen Rascon ncounter DateTime : 05/11/20 11 09:55:26 AM Not Available Not Available Not Available metoprolo l tartrate 25 mg tablet take 1 tablet by oral route 2 times every day 06/08 completed Prescrib ed Elsewher e: Yes Loca tion: Sergio rascon [facility] odify By: suzy Jerome ter DateTime : 05/13/20 11 11:30:00 AM Not Available Not Available Not Available Lantus U-100 Insulin 100 unit/mL subcutane ous cartridge inject by subcutan eous route as per insulin protocol active Prescrib ed Elsewher e: Yes Loca tion: Sergio rascon [facility] odify By: suzy Jerome ter DateTime : 06/08/20 12 08:30:00 AM Not Available Not Available Not Available Apidra U-100 Insulin 100 unit/mL subcutane ous solution inject by subcutan eous route as per insulin sliding scale protocol active Prescrib ed Elsewher e: Yes Loca tion: Sergio rascon [facility] odify By: donald wakefield DateTime : 01/03/20 14 10:00:00 AM Not Available Not Available Not Available Januvia 25 mg tablet 06/08 completed Prescrib ed Elsewher e: Yes Loca tion: Sergio rascon [facility] odify By: suzy Jerome ter DateTime : 05/11/20 11 09:55:26 AM Not Available Not Available Not Available Tekturna 150 mg tablet take 1 tablet by oral route every day 06/08 completed Prescrib ed Elsewher e: Yes Loca tion: Sergio rascon [facility] odify By: suzy wakefield DateTime : 05/11/20 11 09:55:26 AM Not Available Not Available Not Available Bystolic 2.5 mg tablet take 2 tablet by oral route every day 11/09 completed Prescrib ed Elsewher e: Yes Loca tion: Sergio rascon [facility] odify By: ruby Rascon ncounter DateTime : 12/09/19 12 11:45:00 AM Not Available Not Available Not Available omega 3-dha-epa -fish oil 180 mg-270 mg capsule active Prescrib ed Elsewher e: Yes Loca tion: Sergio rascon [facility] odify By: suzy Jerome ter DateTime : 05/13/20 11 11:30:00 AM Not Available Not Available Not Available Vitals Date Recorded Body height Body mass index (BMI) Body weight Systolic blood pressure Diastolic blood pressure Provider Name and Address Organization Details Last Updated DateTime 08/12/2020 162.56 cm 34.8 kg/m2 85564.25 g 96 mm[Hg] 62 mm[Hg] Lauren Oviedo [facility] 10:05:12 Social History None recorded. Functional Status None recorded. Mental Status None recorded. Family History Nothing Reported Notes:Brother: Diabetes puneet itus Father: Diabetes mellitus, Hypertension Maternal aunt: [...] SNOMED-CT Code Diagnosis ICD10 Code Diagnosis Note [id number] Madeline Moore [facility] [address] [address] 08/12/2020 09:55:00 08/12/2020 11:51:27 Gynecologic examination 39282037 Z01.419 Take Calcium with Vitamin D 12-1500mg daily. Do monthly self breast exams. It is advised to get annual flu shot in the fall and she could obtain at [facility] or [facility] clinic. If you haven't received the [...] guidelines pap/hpv. 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 Mammo ordered PCP [facility] Health Concerns Section Related Observation LastModified by Organization Detai ls LastModified Time None Recorded Concern Status LastModified by Organization Details LastModified Time None Recorded Advance Directives Directive None Recorded Payers Insurance Date Sequence Insurance Name Policy Number Policy Peters Covered Member ID Peters Member ID Guarantor Name 12/30/2021 1 [facility] PRIOR TO 02/05/2021 (MEDICAID REPLACEMENT - HMO) Cira Abdulaziz Myrick [id number] Cira Myrick 12/30/2021 1 [facility] ON OR AFTER 02/05/21 (MEDICAID REPLACEMENT - HMO) Cira Myrick [id number] Cira Myrick Notes Date Note Type Note [...] date on colonoscopy screening; Dexa ordered PCP Madeline Moore [facility] [address] [place], [address], [facility] 08/12/2020 10:33:02 OBGyn Episode No OBEpisode recorded.
--- OUTSIDE RECORDS SUMMARY | 2025-02-05 07:57 | XMS_ITS | Clinical Summary ---
Author Organization [facility] Address [address] [place] [address] Care Team Providers Care Electromyographic Technician Name Role Phone Rigo Courtney MD Primary Care Provider [phone] Source Comments [facility],non-owned Affiliates and Associated Physician Practices is amultiple site organization consisting of ambulatory clinics and hospital sitesin [place], [place] and [place]. This disclosure is being madepursuant to the Care Everywhere program and may not contain all information available regarding this patient. Last updated 18.[facility] Allergies No known active allergies Social History Tobacco Use Types Packs/Day Years Used Date Smoking Tobacco: Never Assessed Comments Unknown Sex and Gender Information Value Date Recorded Sex Assigned at Not on file Legal Sex Female 11:53 AM CDT Gender Identity Not on file Sexual [...] VACCINE ( - 2023-2 5 season) 2024 DEPRESSION SCREENING 08/08/2024 INFLUENZA VACCINE (Season Ended) 2025 Respiratory Syncytial Virus (RSV) Vaccine Pt: or [...] to complete this topic MENINGOCOCCAL (Group B) VACC INE SHARED DECISION-MAKING Aged Out No longer eligibl e based on patient's age to complete this topic MENINGOCOCCAL GROUPS A/C/Y/W VACCINE Aged Out No longer eligible b ased on patient's age to complete this topic Care Teams Electromyographic Technician Relationship Specialty Start Date End Date Rigo Courtney MD [address] [place] [id number] PCP - General Internal Medicine 11/26/16
--- OUTSIDE RECORDS SUMMARY | 2025-02-05 07:57 | XMS_ITS | Clinical Summary ---
Author Organization [facility] Address [address] [place] [address] Care Team Providers Care Caterer'S Aide Name Role Phone Unavailable Primary Care Provider [...] 1 - Tdap) 1976 Mammogram Screening 1997 Pneumococcal Vaccine: 50+ Ye ars (1 of 1 - PCV) 2007 Zoster Vaccines (1 of 2) 2007 Dexa Scan (General) 2022 COVID-19 Vaccine ( - 2023-2 5 season) 2024 RSV Immunization or 60+ Years (1 [...]
--- OUTSIDE RECORDS SUMMARY | 2025-02-05 07:57 | XMS_ITS | Data Portability ---
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 She is ready to have surgery done. She has has uyeo-bw-vhgu change in the right knee. She previous had and left knee replacement done by me and has done well. We discussed treatment options risks benefits limitations and alternatives in detail she agrees and understands. She has had it done on the left so she has been through it. We will proceed per her request. Not available 01/10/2023 10:40:12 03/08/2023 03/08/2023 Patient returns agmo-di-rsmq arthritis right knee. She has had previous [...] good no evidence of loosening or change. [email or web address] Not available 03/08/2023 14:45:39 Plan of Treatment Reminders Order Date Submit Date Provider Last Modified By Organization Details Last Modified Time Details Appointments None recorded. Lab None recorded. Referral None recorded. Procedures injection/a spiration joint/bursa (PROC) - in office procedure, administere d by provider 2022 023 [email or web address] In-Office Order, Internal Use Only DO Not Attach Compendium DO Not Attach Compendium, Do Not Delete/merge, [id number] 14:40:44 Surgeries None recorded. Imaging XR, knee 2022 023 [email or web address] [facility] [place], [address], [place], [address], 3 15:13:02 Medication Orders Kenalog 10 mg/mL suspension for injection 2022 023 [place] [address] [facility] #[id number], [address] [facility], [place], [place], [id number], 3 14:48:31 ropivacaine (PF) 5 mg/mL (0.5 %) injection solution 2022 023 [address] [id number], [address] [facility], [place], [place], [phone], 3 14:48:31 diclofenac sodium 75 mg tablet,patrick yed release 2022 023 [address] [id number], [address] [facility], [place], [place], [id number], 3 14:48:31 Patient TargetsNo targets recorded. Patient InstructionsNo instructions recorded. Reason for Referral None Reported. Results Created Date Observation Date Name Description Value Unit Range Abnormal Flag Note LastModifiedBy Organization Detail LastModifiedTime 01/15/20 22 XR, knee, 3 view No observ ation record ed. [id number] [facility] [place] [address], [place], [address], 10/06/2022 13:33:27 03/08/20 23 XR, knee No observ ation record ed. [email or web address] [facility] [place] [address], [place], [address], 03/08/2023 14:45:09 Result Notes None recorded. Problems Name Problem SNOMED Code Status Onset Date Resolution Date Notes Provider Name and Address Organization Details Recorded Time History of left total knee replacemen t 3084662020794 105 Active 2021 Not Available [facility] 3 13:30:53 History of total knee arthroplas ty 4321524785015 Active 2018 Not Available [facility] 3 13:30:53 Pain in right sacroiliac joint 7219787770645 9107 Active 2021 Not Available [facility] 3 13:30:53 Osteoarthr itis of knee 112647678 Active Not Available [facility] 3 13:30:53 Low back pain 416750373 Active 2021 Not Available [facility] 3 13:30:53 Knee pain Active Not Available [facility] 3 13:30:53 Osteoarthr itis of left knee joint 1594743028172 09 Active 2021 Not Available [facility] 3 13:30:53 Osteoarthr itis of right knee joint 1575427421149 00 Active 2021 Not Available [facility] 3 13:30:53 Osteoarthr itis 316293692 Active Not Available [facility] 3 13:30:53 Pain of bilateral knee joints 2354962062991 04 Active 2021 Not Available [facility] 3 13:30:53 Pain in limb 59474547 Active Not Available [facility] 3 13:30:54 Problem Notes None recorded. Procedures Surgical History Date Name Laterality Status Provider Name and Address Organization Details Recorded Time 3 Ortho - Cortisone Injection completed Anson Dumont MD [address] [facility], [facility] [address], [place], [address], [facility] 03/08/2023 14:43:41 Imaging Results None recorded. Procedure Notes None recorded. Medical Equipment None Reported. Allergies Allergen ID Allergen Name Allergen Category Reaction Reaction Severity Criticality Documentation Date Start Date Code Code System Note Provider Name and Address Organization Details Recorded Time 25701 omeprazol e medicatio n other Not available Not available 10/06/2022 7646 RxNorm Not Available [facility] 3 13:33:23 75014 naproxen medicatio n other Not available Not available 10/06/2022 7258 RxNorm Not Available [facility] 3 13:33:23 92073 losartan medicatio n rash Not available Not available 10/06/2022 38207 RxNorm Not Available [facility] 3 13:33:23 46069 amlodipin e / valsartan medicatio n rash Not available Not available 10/06/2022 31491 5 RxNorm Not Available [facility] 3 13:33:24 90732 adhesive tape environme nt,medica tion Not available Not available Not available 10/06/2022 82937 UNK Not Available [facility] 3 13:33:24 Medications Name Sig Start Date Stop Date Status Note LastModified by Organization Details LastModified Time simple diagnostics lancing device misc active Not Available Not Available Not Available [employer] comfort ez insulin sy ringe/u-100 [...] 20 mg by injection route. 2022 active ND: 0003- 0494- 20 Not Available Not Available [...] with needle 1 mL 30 gauge x /16 06/01 completed Not Available Not Available Not [...] administe red by the provider 01/14 completed [facility]: 0409- 4276- 17 Not Available Not Available [...] 20 mg by injection route. 2022 active [facility] 01742 -064- 01 Not Available Not Available Not [...] Not Available Not Available Not Available Fluvirin 4241-6462 (PF) 45 mcg(15 mcg x3)/0.5 mL intramuscul [...] Updated DateTime 01/10/2023 162.56 cm 36 kg/m2 32899.4 g ANA LUISA León [facility] Circle [facility] 01/10/2023 09:42:32 Date Recorded Body mass index (BMI) Body height Body weight Provider Name and Address Organization Details Last Updated DateTime 01/14/2022 36 kg/m2 162.56 cm 69338.4 g Not Available [facility] 10/06/2022 13:30:10 Date Recorded Body mass index (BMI) Body height Body weight Provider Name and Address Organization Details Last Updated DateTime 02/11/2022 20.8 kg/m2 162.56 cm 75701.68 g Not Available [facility] 10/06/2022 13:30:10 Date Recorded Body height Body mass index (BMI) Body weight Provider Name and Address Organization Details Last Updated DateTime 03/08/2023 160.02 cm 37.6 kg/m2 88910.58 g ANA LUISA León [facility] [employer] [facility] 03/08/2023 14:24:15 Date Recorded Body height Provider Name an d Address Organization Details Last Updated DateTime 05/17/2022 162.56 cm Not Available [facility] 13:30:09 Social History None recorded. Functional Status Question Answer Note LastModified by Organizat ion Details LastModified Time What is your level of alcohol consumption? None [id number] Information not available 10/06/2022 Mental Status None recorded. Family History Relationship Description Onset Age of this Age Resolved Age Notes LastModified by Organization Details LastModified Time Maternal Grandfather Heart disease [id number] Not available 10/06/2022 13:30:05 Sister Family history of malignant neoplasm [id number] Not available 10/06/2022 13:30:05 Father Hypertensive disorder [id number] Not available 10/06/2022 13:30:06 Father Diabetes mellitus [id number] [id number] Not available 10/06/2022 13:30:06 Mother Disorder of lung [id number] Not available 10/06/2022 13:30:06 Medical History Condition Response DIABETES, TYPE Y HYPERTENSION Y CANCER: SPECIFY Y Gynecological HistoryNo gynecological history recorded. Obstetrics History GPAL:G 0 P 0 0 0 0 Past Encounters Encounter ID Performer Location Encounter Start Date Encounter Closed Date Diagnosis/Indication Diagnosis SNOMED-CT Code Diagnosis ICD10 Code Diagnosis Note [id number] GWEN Hastings [facility] [place] [address] [place] [address] 01/22/2021 00:00:00 01/22/2021 12:26:22 [id number] Anson Dumont MD [facility] [place] [address] [place] [address] 01/14/2022 00:00:00 01/14/2022 10:07:40 [id number] Anson Dumont MD [facility] [place] [address] [place], [place] [address] 02/11/2022 00:00:00 02/11/2022 09:14:41 [id number] Anson Dumont MD [facility] [place] [address] [place], [place] [address] 05/17/2022 00:00:00 05/17/2022 09:59:06 [id number] Anson Dumont MD [facility] [place] [address] [place], [place] [address] 01/10/2023 09:10:15 01/10/2023 10:38:17 Pain in right sacroiliac joint 1885141567 7620904 M53.3 Osteoarthr itis of right knee joint 0413638001 24450 M17.11 [id number] Anson Dumont MD [facility] [place] [address] [place] [place], [place] [address] 03/08/2023 14:18:38 03/08/2023 15:13:02 Pain in right sacroiliac joint 7630679302 9875610 M53.3 Osteoarthr itis of right knee joint 8316424324 21073 M17.11 Health Concerns Section Related Observation LastModified by Organization Detai ls LastModified Time None Recorded Concern Status LastModified by Organization Details LastModified Time None Recorded Advance Directives Directive None Recorded Payers Insurance Date Sequence Insurance Name Policy Number Policy Peters Covered Member ID Peters Member ID Guarantor Name 03/14/2023 1 [facility] (MEDICARE REPLACEMENT/AD VANTAGE - HMO) [id number] Cira Myrick [id number] Cira Myrick 03/04/2023 2 [place] Cira Myrick [id number] Cira Myrick 01/06/2023 1 [facility] - DOS ON OR AFTER 21 (MEDICAID REPLACEMENT - HMO) Cira Myrick [id number] Myrick Notes Date Note Type Note Provider [...] change in bowel/bladder habits;swelling;war mth;grinding Not Available [employer] 01/14/2022 10:07:40 02/11/2022 text/html KneeReported bypatient.Location: right [...] change in bowel/bladder habits;swelling;war mth;grinding Not Available [employer] 02/11/2022 09:14:41 05/17/2022 text/html KneeReported bypatient.Location: right [...] change in bowel/bladder habits;swelling;war mth;grinding Not Available [employer] [facility] 05/17/2022 09:59:06 01/10/2023 text/html KneeReported bypatient.Quality:a chalo; [...] habits;swelling;war mth;grinding Anson Dumont MD [address] [place] [address], [place], [address], [employer] 01/10/2023 10:40:28 03/08/2023 text/html Patient returns knee pain right. She has an arthritic right knee and is having difficulty getting around. We discussed possible surgery before she is scheduled for later in the year. Anson Dumont MD [address], [place], [address], [employer] 03/08/2023 14:51:27 OBGyn Episode No OBEpisode recorded.
--- NOTE | 2025-02-05 08:45 | ECG_ITS ---
Test Date: 2025-02-05 08:57:29 Measurements Intervals [place] Rate: 68 P: 47 [place]: 148 QRS: 43 QRSD: 110 T: 30 QT: 388 QTc: 413 Interpretive Statements SINUS RHYTHM No previous ECG available for comparison Electronically Signed On 02-05-2025 18:01:21 CDT by Ilia Hood
[2025-02-05 09:10] LABS: Add Urine Microscopic? NO; Appearance Urine Clear (Clear); Glucose Urine UA 3+ mg/dL (Negative); Leukocyte Esterase Ur Negative LEU/UL (Negative); Nitrate Urine Negative (Negative); Specific Grav Ur 1.027 (1.001-1.035)
[2025-02-05 09:10] LABS: Hematocrit 47.9 % (37.0-47.0); Hemoglobin 15.4 g/dL (12.0-15.0); Mean Corpuscular HGB Conc 32.2 g/dl (32-36); Mean Corpuscular Hemoglobin 28.9 pg (26-34); Mean Corpuscular Volume 89.9 fl (80-100); Platelet Count Result 188 k/mm3 (150-375); Red Blood Count 5.33 M/mm3 (4.2-5.4); White Blood Count 7.0 K/mm3 (4.5-10.0)
[2025-02-05 09:33] LABS: INR 1.0; Prothrombin Time 13.3 Seconds (11.1-14.7)
[2025-02-05 09:34] LABS: Partial Thromboplastin Time 31.9 Seconds (22.3-36.8)
[2025-02-05 09:52] LABS: Anion Gap 8 mmol/L (4-12); Blood Urea Nitrogen 16 mg/dL (7-17); Calcium 9.1 mg/dL (8.4-10.2); Carbon Dioxide 29 mmol/L (22-30); Chloride 103 mmol/L (98-107); Estimated Glomerular Filt Rate > 60; Glucose 97 mg/dL (65-110); Potassium 4.1 mmol/L (3.4-5.0); Sodium 140 mmol/L (137-145)
[2025-02-05 10:46] LABS: Hemoglobin A1C. 6.6 % (<5.7)
== END 2025-02-05 07:53 | disposition home or self-care (01) ==
LOC: ANHSURGERY 07:54
PROVIDERS: PCP Family Medicine; Visit Provider Neurological Surgery
DX: Z01.818 Encounter for other preprocedural examination (principal); G95.9 Disease of spinal cord, unspecified; M54.12 Radiculopathy, cervical region; I10 Essential (primary) hypertension; E78.5 Hyperlipidemia, unspecified
CPT/HCPCS: 36415; 80048; 81003; 83036; 85027; 85610; 85730; 86850; 86900; 86901; 93005

== ENCOUNTER 2025-02-12 00:57 | Day surgery (SDC) | payer MEDICARE, SELFPAY ==
[2025-02-05 08:14] VITALS: BP 148/67; PULSE 73; RESP 12; TEMP 36.3; O2SAT 93; BMI 34.9
--- NOTE | 2025-02-05 08:36 | PC.NURSE ---
Report to the Outpatient Waiting Room, entrance under the green pavilion located off [facility], at time __10:00am on date __02/12/25 . Planned Procedure Time: __12:00pm .? Time changes happen often and if your time is changed the preop area will call you the afternoon before. - You and your visitor will be asked to self-screen and do not enter if you have any COVID symptoms. Please call surgeon if you need to reschedule. - A mask is optional within the hospital at this time. Patients may have clear liquids (water, carbonated beverages, clear teas, apple juice) until 3 hours prior to surgery with a maximum of 20 ounces. - No food from midnight until time of surgery and no smoking, or chewing tobacco (or any form of nicotine). No chewing gum, candy or mints. (09:00am) Take only the following medications with a SIP of water on the morning of surgery: _Amlodipine, Coreg, Albuteral if needed, Tylenol if needed DO NOT STOP ANY OF YOUR OTHER PRESCRIPTION MEDICATIONS PRIOR TO SURGERY EXCEPT THE FOLLOWING Hold all vitamins and supplements for 3 days per anesthesiologist. Date of last dose 02/08/25 Medications to discontinue per physician HOLD ASPIRIN, MOTRIN, ADVIL, DICLOFENAC Products for 7 days prior Date to take last dose____02/03/25 Please no make-up, nail english, hairspray, perfume, deodorant, or body powder the day of surgery.? No jewelry (including any body piercings) or valuables the day of surgery, leave them at home.? Please take a shower or bath the night before, or the morning of, surgery with an antibacterial soap.? Wear comfortable, loose fitting clothing.? OVernight bag, cane, cell phone, Service Bar Cashier, comfly tennis shoes. - Jewelry must be removed prior to entering the operating room.? Rings and piercings that are not removed may be cut off. - The hospital will not accept responsibility for valuables.? - Please leave all valuables, including medications, at home the day of surgery. If you are going home after surgery, a licensed trencher driver must drive you home.? - NO public transportation without another adult if you receive anesthesia. - We recommend that an adult stay with you for 24 hours following discharge. - We also recommend that you do not drive, make important decision, drink alcoholic beverages, or take any drugs that were not prescribed by your health care provider for at least 24 hours after your discharge time. Follow any additional instructions given to you from your surgeon. IF rash/vulvar issue persists despite RX, OB treatment, pt will make sure to notify Dr Borges preop. Telephone instructions given to _Patient and asked if any additional questions and then verbalized understanding. Patient advised to call surgeon office or pre surgery nurse liaison [phone] if any additional questions.
[2025-02-12] VITALS (13 sets, daily range): BP systolic 119–146; BP diastolic 54–72; PULSE 58–88; RESP 12–18; TEMP 35.7–36.6; O2SAT 90–98
--- NOTE | ~2025-02-12 | XR_ITS ---
INTRAOPERATIVE FLUOROSCOPY: CLINICAL HISTORY: 69 years old Female; CERVICAL DISCECTOMY AND FUSION PROCEDURE COMMENTS: Limited intraoperative fluoroscopy of the cervical spine was performed. CUMULATIVE DOSE: 2.0 mGy FLUOROSCOPY TIME: 8.6 seconds FINDINGS/IMPRESSION: Please refer to operative note for further details. Reviewed, dictated and finalized at location A.
--- OUTSIDE RECORDS SUMMARY | 2025-02-12 01:00 | XMS_ITS | Data Portability ---
Author Organization [place] [facility] [employer], Main Office Address [address] [place] [address] Care Team Providers Care Air Conditioning Unit Tester Name Role Phone TRACEY MCLEAN Primary Care Provider [phone] TRACEY MCLEAN Referring Provider [phone] Assessment Encounter Date Assessment Date Assessment LastModified by Organization Details LastModified Time 01/10/2023 01/10/2023 Patient returns knee pain right. She is ready to have surgery done. She has has tkhw-to-thgk change in the right knee. She previous had and left knee replacement done by me and has done well. We discussed treatment options risks benefits limitations and alternatives in detail she agrees and understands. She has had it done on the left so she has been through it. We will proceed per her request. [email or web address] Not available 01/10/2023 10:40:12 03/08/2023 03/08/2023 Patient returns efvp-dh-mkjy arthritis right knee. She has had previous [...] good no evidence of loosening or change. [email or web address] Not available 03/08/2023 14:45:39 Plan of Treatment Reminders Order Date Submit Date Provider Last Modified By Organization Details Last Modified Time Details Appointments None recorded. Lab None recorded. Referral None recorded. Procedures injection/a spiration joint/bursa (PROC) - in office procedure, administere d by provider 2022 023 [email or web address] In-Office Order, Internal Use Only DO Not Attach Compendium DO Not Attach Compendium, Do Not Delete/merge, 14853 14:40:44 Surgeries None recorded. Imaging XR, knee 2022 023 [email or web address] [facility] [place], [address], [place], [address], 3 15:13:02 Medication Orders Kenalog 10 mg/mL suspension for injection 2022 023 [email or web address] [facility], [address] [facility], [place], [place], [id number], 3 14:48:31 ropivacaine (PF) 5 mg/mL (0.5 %) injection solution 2022 [address]23 [address] [facility], [address] [facility], [place], [place], [id number], 3 14:48:31 diclofenac sodium 75 mg tablet,patrick yed release 2022 023 [address] [facility], [address] [facility], [place], [place], [id number], 3 14:48:31 Patient TargetsNo targets recorded. Patient InstructionsNo instructions recorded. Reason for Referral None Reported. Results Created Date Observation Date Name Description Value Unit Range Abnormal Flag Note LastModifiedBy Organization Detail LastModifiedTime 01/15/20 22 XR, knee, 3 view No observ ation record ed. [id number] [facility] [place] [address], [place], [address], 10/06/2022 13:33:27 03/08/20 23 XR, knee No observ ation record ed. [email or web address] [facility] [place] [address], [place], [address], 03/08/2023 14:45:09 Result Notes None recorded. Problems Name Problem SNOMED Code Status Onset Date Resolution Date Notes Provider Name and Address Organization Details Recorded Time History of left total knee replacemen t 9507794051534 105 Active 2021 Not Available [facility] 3 13:30:53 History of total knee arthroplas ty 2771826673845 Active 2018 Not Available [facility] 3 13:30:53 Pain in right sacroiliac joint 8553683873008 9107 Active 2021 Not Available [facility] 3 13:30:53 Osteoarthr itis of knee 278789827 Active Not Available [facility] 3 13:30:53 Low back pain 963871820 Active 2021 Not Available [facility] 3 13:30:53 Knee pain Active Not Available [facility] 3 13:30:53 Osteoarthr itis of left knee joint 4409112232403 09 Active 2021 Not Available [facility] 3 13:30:53 Osteoarthr itis of right knee joint 4066032536988 00 Active 2021 Not Available [facility] 3 13:30:53 Osteoarthr itis 198474119 Active Not Available [facility] 3 13:30:53 Pain of bilateral knee joints 3430258804145 04 Active 2021 Not Available [facility] 3 13:30:53 Pain in limb 11079713 Active Not Available [facility] 3 13:30:54 Problem Notes None recorded. Procedures Surgical History Date Name Laterality Status Provider Name and Address Organization Details Recorded Time 3 Ortho - Cortisone Injection completed Anson Dumont MD [address] [facility], [facility] [address], [place], [address], [facility] 03/08/2023 14:43:41 Imaging Results None recorded. Procedure Notes None recorded. Medical Equipment None Reported. Allergies Allergen ID Allergen Name Allergen Category Reaction Reaction Severity Criticality Documentation Date Start Date Code Code System Note Provider Name and Address Organization Details Recorded Time 81808 omeprazol e medicatio n other Not available Not available 10/06/2022 7646 RxNorm Not Available [facility] 3 13:33:23 70562 naproxen medicatio n other Not available Not available 10/06/2022 7258 RxNorm Not Available [facility] 3 13:33:23 28972 losartan medicatio n rash Not available Not available 10/06/2022 42954 RxNorm Not Available [facility] 3 13:33:23 74182 amlodipin e / valsartan medicatio n rash Not available Not available 10/06/2022 76329 5 RxNorm Not Available [facility] 3 13:33:24 62128 adhesive tape environme nt,medica tion Not available Not available Not available 10/06/2022 37981 UNK Not Available [facility] 3 13:33:24 Medications Name Sig Start Date [...] administe red by the provider 01/14 completed [facility]: 0409- [phone]- 17 Not Available Not Available [...] 20 mg by injection route. 2022 active [facility] 05190 -064- 01 Not Available Not Available Not [...] Not Available Not Available Not Available Fluvirin 7333-1598 (PF) 45 mcg(15 mcg x3)/0.5 mL intramuscul [...] Updated DateTime 01/10/2023 162.56 cm 36 kg/m2 91784.4 g ANA LUISA León [facility] [employer] [facility] 01/10/2023 09:42:32 Date Recorded Body mass index (BMI) Body height Body weight Provider Name and Address Organization Details Last Updated DateTime 01/14/2022 36 kg/m2 162.56 cm 52483.4 g Not Available [facility] 10/06/2022 13:30:10 Date Recorded Body mass index (BMI) Body height Body weight Provider Name and Address Organization Details Last Updated DateTime 02/11/2022 20.8 kg/m2 162.56 cm 66629.68 g Not Available [facility] 10/06/2022 13:30:10 Date Recorded Body height Body mass index (BMI) Body weight Provider Name and Address Organization Details Last Updated DateTime 03/08/2023 160.02 cm 37.6 kg/m2 30976.58 g ANA LUISA León [facility] [employer] [facility] 03/08/2023 14:24:15 Date Recorded Body height Provider Name an d Address Organization Details Last Updated DateTime 05/17/2022 162.56 cm Not Available [facility] 13:30:09 Social History None recorded. Functional Status Question Answer Note LastModified by Organizat ion Details LastModified Time What is your level of alcohol consumption? None [id number] Information not available 10/06/2022 Mental Status None recorded. Family History Relationship Description Onset Age of this Age Resolved Age Notes LastModified by Organization Details LastModified Time Maternal Grandfather Heart disease [id number] Not available 10/06/2022 13:30:05 Sister Family history of malignant neoplasm [id number] [id number] Not available 10/06/2022 13:30:05 Father Hypertensive disorder [id number].101 [id number] Not available 10/06/2022 13:30:06 Father Diabetes mellitus [id number] Not available 10/06/2022 13:30:06 Mother Disorder of lung [id number] [id number] Not available 10/06/2022 13:30:06 Medical History Condition Response DIABETES, TYPE Y HYPERTENSION Y CANCER: SPECIFY Y Gynecological HistoryNo gynecological history recorded. Obstetrics History GPAL:G 0 P 0 0 0 0 Past Encounters Encounter ID Performer Location Encounter Start Date Encounter Closed Date Diagnosis/Indication Diagnosis SNOMED-CT Code Diagnosis ICD10 Code Diagnosis Note [id number] GWEN Hastings [facility] [place] [address] [place] [address] 01/22/2021 00:00:00 01/22/2021 12:26:22 [id number] Anson Dumont MD [facility] [place] [address] [place] [address] 01/14/2022 00:00:00 01/14/2022 10:07:40 [id number] Anson Dumont MD [facility] [place] [address] [place], [place] [address] 02/11/2022 00:00:00 02/11/2022 09:14:41 [id number] Anson Dumont MD [facility] [place] [address] [place], [place] [address] 05/17/2022 00:00:00 05/17/2022 09:59:06 [id number] Anson Dumont MD [facility] [place] [address] [place], [place] [address] 01/10/2023 09:10:15 01/10/2023 10:38:17 Pain in right sacroiliac joint 5168784550 2369175 M53.3 Osteoarthr itis of right knee joint 5726230395 51951 M17.11 [id number] Anson Dumont MD [facility] [place] [address] [place] [place], [place] [address] 03/08/2023 14:18:38 03/08/2023 15:13:02 Pain in right sacroiliac joint 4136179922 2856683 M53.3 Osteoarthr itis of right knee joint 5150264787 71526 M17.11 Health Concerns Section Related Observation LastModified by Organization Detai ls LastModified Time None Recorded Concern Status LastModified by Organization Details LastModified Time None Recorded Advance Directives Directive None Recorded Payers Insurance Date Sequence Insurance Name Policy Number Policy Peters Covered Member ID Peters Member ID Guarantor Name 03/14/2023 1 [facility] (MEDICARE REPLACEMENT/AD VANTAGE - HMO) [id number] Cira Myrick [id number] Cira Myrick 03/04/2023 2 [place] Cira Myrick [id number] Cira Myrick 01/06/2023 1 [facility] - DOS ON OR AFTER 21 (MEDICAID REPLACEMENT - HMO) Cira Myrick [id number] Myrick Notes Date Note Type Note Provider [...] change in bowel/bladder habits;swelling;war mth;grinding Not Available [facility] 01/14/2022 10:07:40 02/11/2022 text/html KneeReported bypatient.Location: right [...] change in bowel/bladder habits;swelling;war mth;grinding Not Available [facility] 02/11/2022 09:14:41 05/17/2022 text/html KneeReported bypatient.Location: right [...] change in bowel/bladder habits;swelling;war mth;grinding Not Available [facility] 05/17/2022 09:59:06 01/10/2023 text/html KneeReported bypatient.Quality:a chalo; [...] mth;grinding Anson Dumont MD [address] [address], [place], [address], [facility] 01/10/2023 10:40:28 03/08/2023 text/html Patient returns knee pain right. She has an arthritic right knee and is having difficulty getting around. We discussed possible surgery before she is scheduled for later in the year. Anson Dumont MD [address], [place], [address], [facility] 03/08/2023 14:51:27 OBGyn Episode No OBEpisode recorded.
--- OUTSIDE RECORDS SUMMARY | 2025-02-12 01:00 | XMS_ITS | Data Portability ---
Author Organization [facility] Address [address] [place] [address] Assessment Encounter Date Assessment Date Assessment LastModified [...] and labor atory findi ngs. See https ://[employer]/s ites/ defau lt/fi les/2 018-0 - 74285 _002_ 01.pd f for sumi llamas. Test perfo rmed by [facility] d/b/a [employer], [address] [facility] [place] [place] [address] , Ana Baez ra, DO, Labor atory [facility]. HPV High Risk *HPV NOT DETEC [...] and labor atory findi ngs. See https ://[employer]/s ites/ defau lt/fi les/2 018-0 3- 21280 _002_ 01.pd f for community health er infor isabelle llamas. Test perfo rmed by [facility] [employer], d/b/a [employer], [address], [place] [address] , Ana Baez ra, DO, Labor atory [employer]. End of Repor t Techn ical servi clay provi ded by [facility], d/b/a [employer], [address] [place] [address] Marvel Oleary MD, [facility]. Case revie wed and diagn osis rende red at [facility], d/b/a [employer], [address] [place] [address] Marvel Oleary MD, [facility]. CONFI DENTI AL Not Available [facility] ([facility] [employer]) [address] [place] [address], [place], [address], 08/14/2020 11:15:59 08/12/19 21 08/13/2020 HPV DNA, high- risk HPV high risk NOT DETECT ED normal Not Available [facility] ([facility] [employer]) [address] [place] [address], [place], [address], 08/14/2020 11:15:59 Result Notes None recorded. Problems [...] Not Available [facility] 0 19:03:51 Breast lump 47264276 Active 2011 Lump or mass in breast;Pr actice ID: 0001 Not Available [employer] 0 19:03:51 Vaginitis and vulvovagi nitis Active 2011 Vaginitis and vulvovagi nitis, unspecifi ed;Practi ce ID: 0001 Not Available [facility] 0 19:03:51 Dyspareun ia 18209425 Active 2011 Dyspareun ia;Practi ce ID: 0001 Not Available [facility] 0 19:03:51 Adult health examinati on Active 2011 Routine general medical examinati on at a health care facility; Practice ID: 0001 Not Available [facility] 0 19:03:51 Specializ ed medical examinati on Active 2011 Routine gynecolog ical examinati on;Practi ce ID: 0001 Not Available [facility] 0 19:03:52 Health condition feared but not present [id number] 9109 Active 2013 Person with feared complaint in whom no diagnosis was made;Prac osvaldo ID: 0001 Not Available [facility] 0 19:03:52 Overweigh t [id number] Active 2013 Overweigh t;Practic e ID: 0001 Not Available [facility] 0 19:03:52 Glycosuri a 21015886 Active 2013 Glycosuri a;Practic e ID: 0001 Not Available [facility] 0 19:03:[address] Concept Active 2014 Encntr for general adult medical exam w/o abnormal findings; Practice ID: 0001 Not Available [facility] 0 19:03:[address] Concept Active 2014 Encntr for pricing coordinator exam (general) (routine) w/o abn findings; Recorded Elsewhere : No Locati on: [facility] So urce: EHR Chron ic: N Practic e ID: 0001 Bill able Time: 08:30:00 AM Not Available [facility] 0 19:03:53 Body mass index 30+ - obesity 762283969 Active 2017 Body mass index (BMI) 33.0-33.9 , adult;Rec orded Elsewhere : No Locati on: [facility] So urce: EHR Chron ic: N Practic e ID: 0001 Bill able Time: 01:30:00 PM Not Available [facility] 0 19:03:53 Problem Notes None recorded. Medical Equipment None Reported. Allergies Allergen ID Allergen Name Allergen Category Reaction Reaction Severity Criticality Documentation Date Start Date Code Code System Note Provider Name and Address Organization Details Recorded Time 9789 naproxen medicatio n Not available Not available Not available 07/25/2020 7258 RxNorm Comme nt: [facility]; Not Available [facility] 0 14:14:44 9795 omeprazol e medicatio n Not available Not available Not available 07/25/2020 7646 RxNorm Comme nt: [facility]at [facility]; Not Available [facility] 0 14:14:44 9800 losartan medicatio n Not available Not available Not available 07/25/2020 14961 RxNorm Comme nt: [facility]at [facility]; Not Available [facility] 0 14:14:44 9807 valsartan medicatio n Not available Not available Not available 07/25/2020 56338 RxNorm Comme nt: [facility]at [facility] Cau sativ e Agent : Exfor ge; Not Available [facility] 0 14:14:44 9810 epinephri ne medicatio n Not available Not available Not available 07/25/2020 3992 RxNorm React ion: dizzy ; Comme nt: [facility]at [facility]; Not Available [facility] 0 14:14:44 9817 hydrochlo rothiazid e medicatio n Not available Not available Not available 07/25/2020 5487 RxNorm Comme nt: [facility] Cau sativ e Agent : Exfor ge HCT; Not Available [facility] 0 14:14:44 9823 adhesive tape environme nt,medica tion Not available Not available Not available 07/25/2020 98431 UNK Comme nt: [facility]at [facility]; Not Available [facility] 0 14:14:44 Medications Name Sig Start Date Stop Date Status Note LastModified by Organization Details LastModified Time multivita min tablet active Prescrib ed Elsewher e: Yes Loca tion: Sergio rascon [facility] odify By: Encount er DateTime : 02/03/20 19 10:45:00 AM Not Available Not Available Not Available carvedilo l 12.5 mg tablet take 1 tablet by oral route 2 times every day with food 2017 active Prescrib ed Elsewher e: Yes Loca tion: Sergio rascon [facility] odify By: ruby diamondunter DateTime : 01/18/20 18 01:30:00 PM Not Available Not Available Not Available clonidine 0.1 mg/24 hr weekly transderm al patch apply 1 patch by transder mal route every week 06/11 completed Prescrib ed Elsewher e: Yes Loca tion: Sergio rascon [facility] odify By: allen diamonduntla nena DateTime : 12/09/19 12 11:45:00 AM Not Available Not Available Not Available metformin 850 mg tablet take 1 tablet by oral route 2 times every day with morning and evening meals active Prescrib ed Elsewher e: Yes Loca tion: Sergio rascon [facility] odify By: suzy wakefield DateTime : 06/08/20 12 08:30:00 AM Not Available Not Available Not Available amlodipin e 2.5 mg tablet take 1 tablet by oral route every day 2016 active Prescrib ed Elsewher e: Yes Loca tion: Sergio rascon [facility] odify By: ruby diamonduntla nena DateTime : 11/10/19 17 08:30:00 AM Not Available Not Available Not Available glimepiri de 1 mg tablet take 1 tablet by oral route every day 06/11 completed Prescrib ed Elsewher e: Yes Loca tion: Sergio rascon [facility] odify By: allen coyle DateTime : 05/13/20 11 11:30:00 AM Not Available Not Available Not Available Amaryl 4 mg tablet take 1 tablet by oral route every day 06/19 completed Prescrib ed Elsewher e: Yes Loca tion: Sergio rascon [facility] odify By: harry Tarah lobounter DateTime : 05/11/20 11 09:55:26 AM Not Available Not Available Not Available aspirin 500 mg tablet take 2 tablet by oral route every 6 hours as needed active Prescrib ed Elsewher e: Yes Loca tion: Sergio rascon [facility] odify By: suzy Jerome ter DateTime : 06/08/20 12 08:30:00 AM Not Available Not Available Not Available cefadroxi l 500 mg capsule take 2 capsule (1G) by oral route every day 06/11 completed Prescrib ed Elsewher e: No Locat ion: Sergio rascon [facility] odify By: allen diamondunter DateTime : 02/03/20 12 08:38:23 AM Not Available Not Available Not Available Vitamin D3 10 mcg (400 unit) tablet active Prescrib ed Elsewher e: Yes Loca tion: Sergio rascon [facility] odify By: Encount er DateTime : 02/03/20 19 10:45:00 AM Not Available Not Available Not Available pravastat in 10 mg tablet take 1 tablet by oral route every day active Prescrib ed Elsewher e: Yes Loca tion: Sergio rascon [facility] odify By: kae Alexander r DateTime : 05/11/20 11 09:55:26 AM Not Available Not Available Not Available Norvasc 5 mg tablet take 1 tablet by oral route every day 02/02 completed Prescrib ed Elsewher e: Yes Loca tion: Sergio rascon [facility] odify By: [email or web address] Encount er DateTime : 06/08/20 12 08:30:00 AM Not Available Not Available Not Available hydrochlo rothiazid e 12.5 mg capsule take 2 capsule by oral route every day active Prescrib ed Elsewher e: Yes Loca tion: Sergio rascon [facility] odify By: kae Jeromete r DateTime : 05/11/20 11 09:55:26 AM Not Available Not Available Not Available Luiz's wort 150 mg capsule active Prescrib ed Elsewher e: Yes Loca tion: Sergio rascon [facility] odify By: suzy Jerome ter DateTime : 05/13/20 11 11:30:00 AM Not Available Not Available Not Available Vitamin B-6 50 mg tablet active Prescrib ed Elsewher e: Yes Loca tion: Sergio rascon [facility] odify By: [email or web address] Encount er DateTime : 02/03/20 19 10:45:00 AM Not Available Not Available Not Available Vitamin D2 1,250 mcg (50,000 unit) capsule take 1 capsule by oral route every week for 8 weeks. 02/02 completed Prescrib ed Elsewher e: No Locat ion: Sergio rascon [facility] odify By: [email or web address] Encount er DateTime : 07/02/20 15 04:48:17 PM Not Available Not Available Not Available Terazol 7 0.4 % vaginal cream insert 1 applicat orful by vaginal route every day for 7 days at bedtime 02/01 completed Prescrib ed Elsewher e: No [facility] By: tgingric h Queenie ter DateTime : 01/27/20 12 11:00:00 AM Not Available Not Available Not Available lisinopri l 2.5 mg tablet take 1 tablet by oral route every day active Prescrib ed Elsewher e: Yes [facility] odify By: suzy Jerome ter DateTime : 05/13/20 11 11:30:00 AM Not Available Not Available Not Available Stanback Headache Powder 650 mg oral packet 07/30 completed Prescrib ed Elsewher e: Yes Loca tion: Merle tarah [facility] odify By: ruby Rascon ncounter DateTime : 12/09/19 12 11:45:00 AM Not Available Not Available Not Available Avandamet 2 mg-1,000 mg tablet take 1 tablet by oral route 2 times every day with meals 06/11 completed Prescrib ed Elsewher e: Yes Loca tion: Sergio [facility] odify By: allen Rascon ncounter DateTime : 05/11/20 11 09:55:26 AM Not Available Not Available Not Available metoprolo l tartrate 25 mg tablet take 1 tablet by oral route 2 times every day 06/08 completed Prescrib ed Elsewher e: Yes Loca tion: Sergio rascon [facility] odify By: suzy Jerome ter DateTime : 05/13/20 11 11:30:00 AM Not Available Not Available Not Available Lantus U-100 Insulin 100 unit/mL subcutane ous cartridge inject by subcutan eous route as per insulin protocol active Prescrib ed Elsewher e: Yes Loca tion: Sergio rascon [facility] odify By: suzy Jerome ter DateTime : 06/08/20 12 08:30:00 AM Not Available Not Available Not Available Apidra U-100 Insulin 100 unit/mL subcutane ous solution inject by subcutan eous route as per insulin sliding scale protocol active Prescrib ed Elsewher e: Yes Loca tion: Sergio rascon [facility] odify By: donald [place] DateTime : 01/03/20 14 10:00:00 AM Not Available Not Available Not Available Januvia 25 mg tablet 06/08 completed Prescrib ed Elsewher e: Yes Loca tion: Sergio rascon [facility] odify By: suzy Jerome ter DateTime : 05/11/20 11 09:55:26 AM Not Available Not Available Not Available Tekturna 150 mg tablet take 1 tablet by oral route every day 06/08 completed Prescrib ed Elsewher e: Yes Loca tion: Sergio rascon [facility] odify By: suzy [place] DateTime : 05/11/20 11 09:55:26 AM Not Available Not Available Not Available Bystolic 2.5 mg tablet take 2 tablet by oral route every day 11/09 completed Prescrib ed Elsewher e: Yes Loca tion: Sergio rascon [facility] odify By: ruby Rascon ncounter DateTime : 12/09/19 12 11:45:00 AM Not Available Not Available Not Available omega 3-dha-epa -fish oil 180 mg-270 mg capsule active Prescrib ed Elsewher e: Yes Loca tion: Sergio rascon [facility] odify By: suzy Jerome ter DateTime : 05/13/20 11 11:30:00 AM Not Available Not Available Not Available Vitals Date Recorded Body height Body mass index (BMI) Body weight Systolic And Diastolic Provider Name and Address Organization Details Last Updated DateTime 08/12/2020 162.56 cm 34.8 kg/m2 52329.25 g 96/62 mm[Hg] Lauern Oviedo [facility] 08/12/2020 10:05:12 Social History None recorded. Functional Status [...] SNOMED-CT Code Diagnosis ICD10 Code Diagnosis Note [id number] Madeline Moore , [facility] [address] [address] 08/12/2020 09:55:00 08/12/2020 11:51:27 Gynecologic examination [id number] Z01.419 Take Calcium with Vitamin D 12-1500mg daily. Do monthly self breast exams. It is advised to get annual flu shot in the fall and she could obtain at [facility] or [facility] care clinic. If you haven't received the Tdap [...] guidelines pap/hpv. 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 Mammo ordered PCP [facility] Concerns Section Related Observation LastModified by Organization Tami issa LastModified Time None Recorded Concern Status LastModified by Organization Details LastModified Time None Recorded Advance Directives Directive None Recorded Payers Insurance Date Sequence Insurance Name Policy Number Policy Peters Covered Member ID Peters Member ID Guarantor Name 12/30/2021 1 [facility] PRIOR TO 02/05/2021 (MEDICAID REPLACEMENT - HMO) Cira Cintron Ramez [id number] Cira Cintron Ramez 12/30/2021 1 [facility] ON OR AFTER 02/05/21 (MEDICAID REPLACEMENT - HMO) Cira Cintron Ramez [id number] Cira Cintron Ramez Notes Date Note Type Note Provider Name [...] screening; Dexa ordered PCP Madeline Moore [facility] [address], [place], [address], [facility] 08/12/2020 10:33:02 OBGyn Episode No OBEpisode recorded.
--- OUTSIDE RECORDS SUMMARY | 2025-02-12 01:00 | XMS_ITS | Continuity of Care Document ---
Author Organization [facility] Address [address] [place] [address] Phone Care Team Providers Care Able Bodied Tankerman Name Role Phone Tito Al PT Unavailable Unavailable Procedures Procedure Date Free Assessment Therapeutic Activities Neuromuscular Re-Ed Therapeutic Activities Neuromuscular [...] ASSESS PT Evaluation Moderate Complexity Therapeutic Activities Manual Therapy Neuromuscular Re-Ed Advance Directives Directive Yes / No Effective Date File Name No Information Encounters Encounter Description Practice Location Reason(s) For Visit Diagnoses Date Provider Providers Copied on Encounter [facility] [employer], [id number], tel:[phone] [facility] No Information Servando Schmidt . Referring Provider: Physician Davie. [facility] [place] [employer] [address] [place] [address], [id number], tel:[phone] [place] No Information Servando Schmidt . Referring Provider: Kieran Fletcher, [address] [place], [address]. tel:[phone] [facility] [employer] [address], [place], [place], [id number], tel:[phone] [place] No Information Servando Schmidt . Referring Provider: Kieran Fletcher, [address] [place], [address]. tel:[phone] [facility], [address], [place], [place], [id number], [place] tel:[phone] [place] No Information Servando Tito. . Referring Provider: Kieran Fletcher, [address] [place], [address]. tel:[phone] [facility] [address], [place], [place], [id number], [place] tel:[phone] [place] No Information Servando Tito. . Referring Provider: Kieran Fletcher, [address] [place], [address]. tel:[phone] [place] [address], [address], [place], [place], [address], [place] tel:[phone] [place] No Information Servando Tito. . Referring Provider: Kieran Fletcher, [address] [place], [address]. tel:[phone] [place] [address], [address], [place], [address], [place] tel:[phone] [place] No Information Servando Tito. . Referring Provider: Kieran Fletcher, [address] [place], [address]. tel:[phone] [facility], [place], [place], [address], [place] tel:[phone] [place] No Information Servando Tito. . Referring Provider: Kieran Fletcher, [address] [place], [address]. tel:[phone] [facility], [place], [address], [place] tel:[phone] [place] No Information Servando Tito. . Referring Provider: Kieran Fletcher, [address] [place], [address]. tel:[phone] [facility] [address], [place], [address], [place] tel:[phone] [place] No Information Servando Tito. . Referring Provider: Kieran Fletcher, [address] [place], [address]. tel:[phone] [facility] [address], [place], [place], [address], [place] tel:[phone] [place] No Information Servando Tito. . Referring Provider: Kieran Fletcher, [address] [place], [address]. tel:[phone] [facility] [address], [place], [address], [place] tel:[phone] [place] No Information Servando Tito. . Referring Provider: Kieran Fletcher, [address] [place], [address]. tel:[phone] [facility] [address], [place], [place], [address], [place] tel:[phone] [place] No Information Servando Tito. . Referring Provider: Kieran Fletcher, [address] [place], [address]. tel:[phone] [facility] [address], [place], [address], [place] tel:[phone] [place] No Information Servando Tito. . Referring Provider: Kieran Fletcher, [address] [place], [address]. tel:[phone] [facility] [address], [place], [address], [place] tel:[phone] [place] No Information Servando Tito. . Referring Provider: Kieran Fletcher, [address] [place], [address]. tel:[phone] [facility] [address], [place], [address], [place] tel:[phone] [place] No Information Servando Tito. . Referring Provider: Kieran Fletcher, [address] [place], [address]. tel:[phone] [facility], [address], [place], [address], [place] tel:[phone] [place] No Information Servando Tito. . Referring Provider: Kieran Fletcher, [address] [place], [address]. tel:[phone] [place] [address] [address], [place], [address], [place] tel:[phone] [place] No Information Servando Tito. . Referring Provider: Kieran Fletcher, [address] [place], [address]. tel:[phone] [facility] [address], [place], [place], [address], [place] tel:[phone] [place] No Information Servando Tito. . Referring Provider: Kieran Fletcher, [address] [place], [address]. tel:[phone] [facility] [address], [place], [place], [address], [place] tel:[phone] [place] No Information Servando Pabonyn. . Referring Provider: Kieran Fletcher, [address] [place], [address]. tel:[phone] [facility] [address], [place], [address], [place] tel:[phone] [place] No Information Servando Pabonyn. . Referring Provider: Kieran Fletcher, [address] [place], [address]. tel:[phone] [facility] [address], [place], [place], [address], tel:[phone] [facility] No Information Servando Tito. . Referring Provider: Kieran Fletcher, [address] [place], [address]. tel:[phone] [facility] [address], [address], [place] tel:[phone] [facility] No Information Otoniel Berg . Referring Provider: Kieran Fletcher, [address] [place], [address]. tel:[phone] [facility] [address], [place], [place], [address], [place] tel:[phone] [facility] No Information Servando Tito. . Referring Provider: Kieran Fletcher, [address] [place], [address]. tel:[phone] [facility] [address], [address], tel:[phone] [facility] No Information Servando Pabonyn. . Referring Provider: Kieran Fletcher, [address] [place], [address]. tel:[phone] [facility] [address], [place], [place], [address], [place] tel:[phone] [place] No Information Servando Tito. . Referring Provider: Anson Dumont, [facility] [place], [address]. tel:[phone] [facility], [place], [place], [address], [place] tel:[phone] [place] No Information Servando Tito. . Referring Provider: Anson Dumont, [address], [place], [address]. tel:[phone] [facility], [address], [place], [address], [place] tel:[phone] [place] No Information Servando Tito. . Referring Provider: Anson Dumont, [address], [place], [address]. tel:[phone] [facility], [address], [place], [address], [place] tel:[phone] [place] No Information Servando Tito. . Referring Provider: Anson Dumont, [address], [place], [address]. tel:[phone] [facility], [address], [place], [place], [address], [place] tel:[phone] [place] No Information Servando Tito. . Referring Provider: Anson Dumont, [address], [place], [address]. tel:[phone] [facility], [address], [place], [place], [address], [place] tel:[phone] [place] No Information Servando Tito. . Referring Provider: Anson Dumont, [address], [place], [address]. tel:[phone] [facility], [address], [place], [place], [address], [place] tel:[phone] [place] No Information Servando Tito. . Referring Provider: Anson Dumont, [address], [place], [address]. tel:[phone] [facility], [place], [place], [address], [place] tel:[phone] [place] No Information Servando Tito. . Referring Provider: Anson Dumont, [address], [place], [address]. tel:[phone] [facility], [address], [place], [place], [address], [place] tel:[phone] [place] No Information Lurtz Analisa. . Referring Provider: Anson Dumont, [address], [place], [address]. tel:[phone] [facility], [address], [place], [address], [place] tel:[phone] [place] No Information Servando Tito. . Referring Provider: Anson Dumont, [address], [place], [address]. tel:[phone] [facility], [address], [place], [place], [address], [place] tel:[phone] [place] No Information Lurtz Analisa. . Referring Provider: Anson Dumont, [address], [place], [address]. tel:[phone] [facility], [place], [address], [place] tel:[phone] [place] No Information Servando Tito. . Referring Provider: Anson Dumont, [address], [place], [address]. tel:[phone] [facility], [place], [address], [place] tel:[phone] [place] No Information Servando Tito. . Referring Provider: Anson Dumont, [address], [place], [address]. tel:[phone] [facility] [place] [address], [id number], tel:[phone] [facility] No Information Lurtz Analisa. . Referring Provider: Anson Dumont, [address], [place], [address]. tel:[phone] [facility], [address], [id number], tel:[phone] [facility] No Information Lurtz Analisa. . Referring Provider: Anson Dumont, [address], [place], [address]. tel:[phone] [facility] [address], [id number], tel:[phone] [facility] No Information Yulietrtz Analisa. . Referring Provider: Anson Dumont, [address], [place], [address]. tel:[phone] [facility], [address] [facility] [address] [place] [address], [id number], tel:[phone] [facility] No Information Servando Francis. . Referring Provider: Anson Dumont, [address], [place], [address]. tel:[phone] [facility] [address] [place] [address], [id number], tel:[phone] [facility] No Information Servando Francis. . Referring Provider: Anson Dumont, [address], [place], [address]. tel:[phone] Family History Family Member Type Diagnosis Age At Onset No Information Payers Payer name Insurance type Covered constitution party ID Authoriza tion(s) No Information Social History Type Description Quantity Date Captured [...]
--- OUTSIDE RECORDS SUMMARY | 2025-02-12 01:00 | XMS_ITS | Clinical Summary ---
Author Organization [facility] Address [address] [place] [address] Care Team Providers Care Yarn Worker Name Role Phone Rigo Courtney MD Primary Care Provider Source Comments [facility],non-owned Affiliates and Associated Physician Practices is amultiple site organization consisting of ambulatory clinics and hospital sitesin [place], [place], [place] and [place]. This disclosure is being madepursuant to the Care Everywhere program and may not contain all information available regarding this patient. Last updated 18.[facility] [employer] Allergies No known active allergies Social History [...] age to complete this topic Care Teams Yarn Worker Relationship Specialty Start Date End Date Rigo Courtney MD [address] [place] [address] PCP - General Internal Medicine 11/26/16
--- OUTSIDE RECORDS SUMMARY | 2025-02-12 01:00 | XMS_ITS | Clinical Summary ---
Author Organization [facility] Address [facility] [place] [address] Care Team Providers Care Lubricating Engineer Name Role Phone Unavailable Primary Care Provider [...]
--- OUTSIDE RECORDS SUMMARY | 2025-02-12 01:00 | XMS_ITS | Continuity of Care Document ---
Author Organization [facility] Address [address] [place] [address] Phone Care Team Providers Care Fruit Farmer Name Role Phone Ej Rosa Unavailable Unavailable [...] Providers Copied on Encounter Office/outpati ent Visit, [facility], [address] [place] [address] [address], [place], [place], [address], [place] tel:[phone] [facility] No Information 0 Shelley Pagan. [address], [place], [address], [place]. tel:[phone] Office/outpati ent Visit, [facility], [address], [place], [place], [address], [place] tel:[phone] [facility] No Information 6 9 Shelley Pagan. [address], [address], [place], [address], [place]. tel:[phone] Office/outpati ent Visit, [facility], [address], [place], [place], [address], [place] tel:[phone] [facility] No Information 9 Inocencia Georges. [address] [place], [address], [place]. tel:[phone] Office/outpati ent Visit, [facility], [address] [place] [address] [address], [place], [place], [address], [place] tel:[phone] [facility] No Information 0 8 Shelley Pagan. [address] [facility] , [address], [place], [address], [place]. tel:[phone] [facility], [address], [place], [place], [address], [place] tel:[phone] [facility] No Information 8 Inoc[address] Georges. [address] [place], [address], [place]. tel:[phone] Referring Provider: José Manuel Eldridge, [address] [place], [address]. tel:[phone] Office Consultation [facility], [address] [place] [address] [address], [place], [place], [address], [place] tel:[phone] [facility] No Information 200 [address] Inoc[address] Georges. [address] [place], [address], [place]. tel:[phone] Referring Provider: Ej Lara, [address], [place], [address]. tel:[phone] Office/outpati ent Visit, [facility], [address] [place] [address] [address], [place], [place], [address], tel:[phone] [facility] No Information 2 2[address] Shelley Pagan. [address] [facility] [address] , [address], [place], [facility], . tel:[phone] Office/outpati ent Visit, [facility], [address] [place] [address] [address], [place], [place], [address], [place] tel:[phone] [facility] No Information 2-200 7 Shelley Pagan. [address] , [address], [place], [facility], . tel:[phone] Referring Provider: Ej Lara, [address] [place], [place] [address], [place], [facility]. tel:[phone] Office/outpati ent Visit, [facility], [address] [place] [address] [address], [place], [place], [address], tel:[phone] [facility] No Information 2 200 7 Shelley Pagan. [address] [facility], [address], [place], [facility], . tel:[phone] Office/outpati ent Visit, [facility], [address] [place] [address] [address], [place], [place], [address], [place] tel:[phone] [facility] No Information [phone] Shelley Pagan. [address] [facility], [address], [place], [facility], . tel:[phone] Family History Family Member Type Diagnosis Age At Onset No Information Payers Payer name Insurance type Covered constitution party ID Tonia carly(s) [place] [id number] Social History Type Description Quantity Date Captured [...]
[2025-02-12] MEDS: LACTATED RINGERS 1,000 ML 30 ML IV CONT ×2 (10:35→15:40)
--- NOTE | 2025-02-12 11:47 | SUR.PREOP ---
1055 PT UPDATED ON SURGERY TIME DELAY
--- NOTE | 2025-02-12 12:34 | P.PNAN_ITS ---
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 Patient Data Age: 69 Gender: F Height: 1.6 m Weight: 90 kg Last Vital Signs Temp 36.6 C 02/12/25 10:10 Pulse 76 02/12/25 10:10 Resp 18 02/12/25 10:10 BP 125/54 L 02/12/25 10:10 Pulse Ox 95 02/12/25 10:10 O2 Del Method Room Air 02/12/25 10:10 Allergies Allergy/AdvReac Type Severity Reaction Status Date / Time Bleach (Sodium Hypochlorite) Allergy Severe Dyspnea / Verified 02/12/25 10:19 SOB latex Allergy Severe Difficulty Verified 02/12/25 10:19 Breathing losartan Allergy Severe RASH Verified 02/12/25 10:19 adhesive tape Allergy Intermediate PLASTIC Verified 02/12/25 10:19 TAPE= RASH naproxen Allergy Unknown DIFFICULTY Verified 02/12/25 10:19 WALKING,UNABLE TO RECALL omeprazole Allergy Unknown Rash,UNABLE Verified 02/12/25 10:19 TO RECALL propranolol Allergy Unknown UNABLE TO Verified 02/12/25 10:19 RECALL valsartan AdvReac Mild Rash Verified 02/12/25 10:19 Home Medications ?Medication ?Instructions ?Recorded ?Confirmed ?Type cholecalciferol (vitamin D3) 25 1,000 unit PO BID 06/07/19 02/12/25 History mcg (1,000 unit) tablet multivitamin (Daily Multi-Vitamin 1 tablet PO DAILY 06/07/19 02/12/25 History tablet) omega-3 1,050 ev-fta-lxf-dpa-fish 1 cap PO DAILY 06/07/19 02/12/25 History oil 1,200 mg capsule ([place]-3 2100) aspirin 325 mg tablet,delayed 325 mg PO DAILY 09/24/21 02/12/25 History release insulin glargine 100 unit/mL 40 unit subcut QAM 06/06/23 02/12/25 History subcutaneous solution (Lantus U-100 Insulin) blood-glucose,donor recruiter,cont #1 ea 11/17/23 02/06/25 Rx (FreeStyle Marsha 3 [place]) insulin syringe-needle U-100 1 mL #500 ea 08/06/24 02/06/25 Rx 31 gauge x 5/16 (BD Insulin Syringe Ultra-Fine) amlodipine 10 mg tablet 10 mg PO DAILY #90 tabs 08/10/24 02/12/25 Rx carvedilol 25 mg tablet 25 mg PO BID #180 tabs 08/10/24 02/12/25 Rx empagliflozin 10 mg tablet 10 mg PO DAILY #90 tabs 08/10/24 02/12/25 Rx (Jardiance) hydrochlorothiazide 12.5 mg tablet 12.5 mg PO DAILY #90 tabs 08/10/24 02/12/25 Rx metformin 1,000 mg tablet 1,000 mg PO BID #180 tabs 08/10/24 02/12/25 Rx pravastatin 40 mg tablet 40 mg PO DAILY #90 tabs 08/10/24 02/12/25 Rx albuterol sulfate 90 mcg/actuation 1 puff inhalation Q4H PRN 10/17/24 02/06/25 Rx aerosol inhaler shortness of breath or wheezing #8.5 grams blood glucose control, high #1 ea 11/30/24 02/06/25 History (OneTouch Verio High Control solution) sertraline 50 mg tablet (Zoloft) 50 mg PO .q hs #90 tabs 11/30/24 02/12/25 Rx trazodone 50 mg tablet 50 mg PO QHS #90 tabs 11/30/24 02/12/25 Rx insulin lispro 100 unit/mL 10 unit (0.1 mL) subcut TID #10 mL 12/18/24 02/12/25 Rx subcutaneous solution (Humalog U-100 Insulin) blood-glucose sensor (FreeStyle #7 ea 12/28/24 02/06/25 Rx Marsha 3 Plus Sensor device) bevacizumab 25 mg/mL intravenous 25 mg intravitreal .every 6 mos 01/16/25 02/06/25 History solution (Avastin) triamcinolone acetonide 0.5 % 1 applic topical BID PRN vulvar 02/01/25 02/06/25 Rx topical ointment irritation #15 grams diclofenac sodium 75 mg 75 mg PO Q12H 02/05/25 02/12/25 History tablet,delayed release tirzepatide 2.5 mg/0.5 mL 2.5 mg (0.5 mL) subcut WEEKLY #2 mL 02/07/25 02/12/25 Rx subcutaneous pen injector (Mark) lisinopril 40 mg tablet 40 mg PO BID #90 tabs 02/11/25 02/12/25 Rx Laboratory Tests 02/12/25 10:35 POC Capillary Glucose 159 H mg/dl (65-105) Patient hx anesthesia problems: none Family hx anesthesia problems: none Results Review: All pre-operative results and documents have been reviewed as part of the pre- operative evaluation. 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 Hyperlipidemia Skin cancer Allergies Depression Osteoarthritis Surgical History Surgical History H/O total knee replacement History of right knee joint replacement (08/02/23) History of hand surgery History of cataract extraction History of myomectomy History of tonsillectomy and adenoidectomy History of repair of anterior cruciate ligament of right knee (~1992) History of repair of anterior cruciate ligament of left knee (~2002) Pound teeth removed Status post surgical removal of malignant neoplasm of skin Status post total left knee replacement (~2018) Family History Family History Father Hypertension Family history of diabetes mellitus in first degree relative Family history of renal failure Family history of kidney disease Mother Patient's mother is Family history of chronic obstructive pulmonary disease Grandparent Family history of dementia Sibling Family history of malignant neoplasm of breast in first degree relative Social History Social History Social History: Surrogate medical decision maker: Lana Peraza, mother. Code status: Full code. 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 Informed Consent: The patient's anesthetic plan and its attendant risks and benefits were discussed with the patient/family/POA. Questions were solicited and answers provided to the satisfaction of the patient/family/POA.
--- NOTE | 2025-02-12 12:57 | P.HP_ITS ---
H&P: HPI History of Present Illness Date/Time: 02/12/25 12:57 Chief Complaint: Neck and arm pain, myelopathy Narrative: Cira is here today with continued complaints of imbalance and pain in her neck. She often lists from side to side, falls and otherwise has difficulty with coordination or lower extremities. She reports that she has had neck problems for a long time without specific exacerbation recently. She is still a somewhat difficult historian. She does not report any bowel or bladder issues. She does not report specific muscle group weakness. she has no new studies or images to review. she does continue to have both neck pain and back pain. She states that this is intermittent. She is very tentative about the idea of cervical or lumbar surgery. Her pain is usually mild to moderate and is only intermittently severe and apparently in a self-limited way. Her problems have been going on for years progressively. She is not falling. It seems as though she is having enough trouble that she is willing to consider more aggressive management at this point. Review of Systems Review of Systems: All systems reviewed & are unremarkable except as noted in HPI and below Denies chills, Denies fever, Denies weight gain and Denies weight loss Eyes Denies change in vision and Denies diplopia ENT Denies disequilibrium Card Denies chest pain and Denies dyspnea Resp Denies cough and Denies dyspnea GI Denies abdominal pain, Denies change in bowel habits, Denies fecal incontinence and Denies vomiting Denies hematuria, Denies oliguria, Denies difficulty urinating, Denies dysuria, Denies urinary frequency, Denies urinary hesitancy, Denies urinary incontinence and Denies urinary urgency Musc Reports as per HPI Skin/ Breast Reports system reviewed and no additional complaints, except as documented Neuro Reports as per HPIPsych Reports no additional complaints, Denies depression and Denies hopelessness Endo Reports no additional complaints and Denies polyuria Mnia/ Lymph Reports no additional complaints Aller/ Immun Reports no additional complaints PMFSH Past Medical History Medical History History of jaundice as a child Foot drop Trigger middle finger of left hand 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 Hyperlipidemia Skin cancer Allergies Depression Osteoarthritis Surgical History Surgical History H/O total knee replacement History of right knee joint replacement (08/02/23) History of hand surgery History of cataract extraction History of myomectomy History of tonsillectomy and adenoidectomy History of repair of anterior cruciate ligament of right knee (~1992) History of repair of anterior cruciate ligament of left knee (~2002) Encinal teeth removed Status post surgical removal of malignant neoplasm of skin Status post total left knee replacement (~2018) Family History Family History Father Hypertension Family history of diabetes mellitus in first degree relative Family history of renal failure Family history of kidney disease Mother Patient's mother is Family history of chronic obstructive pulmonary disease Grandparent Family history of dementia Sibling Family history of malignant neoplasm of breast in first degree relative Social History Social History Social History: Surrogate medical decision maker: Lana Peraza, mother. Code status: Full code. 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 Spiritual care concerns: No Meds Home Medications and Allergies Home Medications ?Medication ?Instructions ?Recorded ?Confirmed ?Type cholecalciferol (vitamin D3) 25 1,000 unit PO BID 06/07/19 02/12/25 History mcg (1,000 unit) tablet multivitamin (Daily Multi-Vitamin 1 tablet PO DAILY 06/07/19 02/12/25 History tablet) omega-3 1,050 ea-syq-ady-dpa-fish 1 cap PO DAILY 06/07/19 02/12/25 History oil 1,200 mg capsule (Clayton-3 2100) aspirin 325 mg tablet,delayed 325 mg PO DAILY 09/24/21 02/12/25 History release insulin glargine 100 unit/mL 40 unit subcut QAM 06/06/23 02/12/25 History subcutaneous solution (Lantus U-100 Insulin) blood-glucose,program director cable television,cont #1 ea 11/17/23 02/06/25 Rx (FreeStyle Marsha 3 [place]) insulin syringe-needle U-100 1 mL #500 ea 08/06/24 02/06/25 Rx 31 gauge x 5/16 (BD Insulin Syringe Ultra-Fine) amlodipine 10 mg tablet 10 mg PO DAILY #90 tabs 08/10/24 02/12/25 Rx carvedilol 25 mg tablet 25 mg PO BID #180 tabs 08/10/24 02/12/25 Rx empagliflozin 10 mg tablet 10 mg PO DAILY #90 tabs 08/10/24 02/12/25 Rx (Jardiance) hydrochlorothiazide 12.5 mg tablet 12.5 mg PO DAILY #90 tabs 08/10/24 02/12/25 Rx metformin 1,000 mg tablet 1,000 mg PO BID #180 tabs 08/10/24 02/12/25 Rx pravastatin 40 mg tablet 40 mg PO DAILY #90 tabs 08/10/24 02/12/25 Rx albuterol sulfate 90 mcg/actuation 1 puff inhalation Q4H PRN 10/17/24 02/06/25 Rx aerosol inhaler shortness of breath or wheezing #8.5 grams blood glucose control, high #1 ea 11/30/24 02/06/25 History (OneTouch Verio High Control solution) sertraline 50 mg tablet (Zoloft) 50 mg PO .q hs #90 tabs 11/30/24 02/12/25 Rx trazodone 50 mg tablet 50 mg PO QHS #90 tabs 11/30/24 02/12/25 Rx insulin lispro 100 unit/mL 10 unit (0.1 mL) subcut TID #10 mL 12/18/24 02/12/25 Rx subcutaneous solution (Humalog U-100 Insulin) blood-glucose sensor (FreeStyle #7 ea 12/28/24 02/06/25 Rx Marsha 3 Plus Sensor device) bevacizumab 25 mg/mL intravenous 25 mg intravitreal .every 6 mos 01/16/25 02/06/25 History solution (Avastin) triamcinolone acetonide 0.5 % 1 applic topical BID PRN vulvar 02/01/25 02/06/25 Rx topical ointment irritation #15 grams diclofenac sodium 75 mg 75 mg PO Q12H 02/05/25 02/12/25 History tablet,delayed release tirzepatide 2.5 mg/0.5 mL 2.5 mg (0.5 mL) subcut WEEKLY #2 mL 02/07/25 02/12/25 Rx subcutaneous pen injector (Mark) lisinopril 40 mg tablet 40 mg PO BID #90 tabs 02/11/25 02/12/25 Rx Allergies Allergy/AdvReac Type Severity Reaction Status Date / Time Bleach (Sodium Hypochlorite) Allergy Severe Dyspnea / Verified 02/12/25 10:19 SOB latex Allergy Severe Difficulty Verified 02/12/25 10:19 Breathing losartan Allergy Severe RASH Verified 02/12/25 10:19 adhesive tape Allergy Intermediate PLASTIC Verified 02/12/25 10:19 TAPE= RASH naproxen Allergy Unknown DIFFICULTY Verified 02/12/25 10:19 WALKING,UNABLE TO RECALL omeprazole Allergy Unknown Rash,UNABLE Verified 02/12/25 10:19 TO RECALL propranolol Allergy Unknown UNABLE TO Verified 02/12/25 10:19 RECALL valsartan AdvReac Mild Rash Verified 02/12/25 10:19 Vital Signs Vital Signs - 24 hr 02/12/25 10:10 Temperature 97.9 F Pulse Rate 76 Respiratory Rate 18 Blood Pressure 125/54 L Pulse Oximetry 95 Oxygen Delivery Room Air Exam Narrative: General: cooperative, no acute distress, well developed, alert and awake Orientation/Consciousness: oriented to person, oriented to place and oriented to time Constitutional Limitations: no limitations Other: The patient is a normally developed, normal appearing male sitting on the examination table in no acute distress. He is awake, alert, and oriented x3 with good fund of knowledge, recall of events, and fluent speech. [facility] Head: normocephalic and atraumatic Ears: external ears normal Face/Nose/Sinus: Normal external nose present Eyes Eyelids: eyelids normal Pupils: Yes Pupils normal by confrontation EOM: EOMs intact bilaterally Neck General: Yes no meningeal signs, Yes supple and Yes no JVD Resp Effort/Inspection: normal respiratory effort and able to speak in complete sentences Cardio Rate: Yes regular rate GI Inspection: No abdominal distension Musc Other: Examination of the back reveals no tenderness. Range of motion of the back is full without pain in forward flexion, extension, and lateral rotation to both sides. Straight leg raise is negative bilaterally. Frank?s test is negative bilaterally. Skin General: normal color Neuro General: Yes oriented to person, Yes oriented to place, Yes oriented to time, Yes normal cognition and Yes no meningeal signs Cranial Nerves: Yes CN's II-XII intact bilaterally Other: Motor: Strength is normal, 5/5, throughout all muscle groups of the bilateral lower extremities to direct confrontation. Sensory: Sensation is intact to light touch throughout the lower extremities bilaterally. Reflexes: deep tendon reflexes are difficult to elicit the knees or ankles bilaterally. There is no clonus. Gait: Gait, station, and transfers are independent and steady for short periods of time and over short distances. Psych Appearance: grossly normal Mental status: Yes mental status grossly normal Mood: congruent mood Affect: Yes normal affect Speech/Movement: Normal speech and movement present Attitude: Yes cooperative Thought Content: Normal thought content See review of studies: MRI of the cervical spine was personally reviewed by me. This demonstrates straightening of the cervical lordosis and degeneration of the disc worse at C5- 6 and 2nd worse at C6-7 but with a left-sided disc herniation at C4-5. There is relative central canal stenosis which I would call moderately severe. In the sagittal images there does seem to be T2 signal change within the cord. This is not necessarily confirmed on the axial images. This is based around the C5-6 level. Assessment and Plan Assessment and plan (1) Cervical radiculopathy at C6: Code(s): M54.12 - Radiculopathy, cervical region Status: Acute (2) Cervical stenosis of spinal canal: Code(s): M48.02 - Spinal stenosis, cervical region Status: Acute Plan Cira continues to have symptoms of myelopathy and pain in her neck. She would like to definitively manage this problem and I have recommended to her already a C4-5 and C5-6 anterior cervical diskectomy and fusion. I described to her that operation, its risks, potential benefits, the operative and postoperative course in detail and answered all her questions personally. We discussed risks including but not limited to permanent neurologic or functional deficit related injury of the trachea, esophagus, carotid artery, jugular vein, recurrent retinal nerve causing hoarseness or aspiration, spinal cord or nerve roots causing permanent neurologic deficit, need for reoperation secondary to infection, bleeding, CSF leak, adjacent level disease, recurrent residual pathology or instability, malposition migration of the hardware nonunion, failure of the procedure to relieve her pain or symptoms, persistent pain, medical complications related anesthesia or surgery, etc.. She indicates understanding and elects to proceed with that operation.
--- NOTE | 2025-02-12 13:00 | WPDHPUPDATE1 ---
History and Physical Update Update Date/Time: 02/12/25 13:00 History and Physical has been reviewed, including an updated exam of the patient. There are NO changes in the patient's condition. Risks, benefits, and alternatives have been discussed and questions answered. Patient agrees to proceed with procedure.
[2025-02-12] MEDS: ceFAZolin 2 GM/D5W 50 ML 2 GM/50 ML BAG IVPB (13:06)
[2025-02-12] MEDS: LIDO 1%/EPINEPHRINE 1:100,000 20 ML VIAL 10 ML INFILTRATE (14:08)
[2025-02-12] MEDS: fentaNYL CITRATE INJ (*CRX) 100 MCG/2 ML VIAL 25 MCG IV PUSH ×3 (15:54→16:42)
--- NOTE | 2025-02-12 15:59 | W.PM.PROC2 ---
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 The of operation on the right side of her neck was examined, marked for incision, prepped and draped in routine sterile fashion. Incision was marked from the midline over the medial aspect of the sternocleidomastoid muscle and curvilinear transverse fashion 3 fingerbreadths above the sternal notch. This area was injected with 0.5% lidocaine with [id number] epinephrine. Intravenous antibiotics given prior to incision. Incision was made with a 10 blade scalpel down to the platysma muscle. The skin was undermined the platysma muscle was divided longitudinally with its fibers using Metzenbaum scissors. Plane was then dissected medial to the sternocleidomastoid muscle down to the anterior aspect of spine using the finger and Metzenbaum scissors. A verifying x-rays obtained to verify the level of operation. The longus colli muscle was dissected free the anterior aspect of the spine in a subperiosteal plane at C4-5 and C5-6 using Bovie cautery. Shadow Line retractor system was placed. Harrison pins were placed in C4 and C6 and distraction placed over both disc spaces simultaneously. Diskectomy and arthrodesis procedures performed identically at each level. This was done by entering the disc space using a 15 blade scalpel cutting along the margin of the bone above and below. A curved curette and pituitary rongeur rongeur were used to remove as much cartilaginous endplate and disc material as possible down to the annulus and ligament posteriorly. Midas-Leo drill was used to bur down the endplates to bleeding cortical flat surfaces as well as to begin a bony foraminotomy bilaterally. Under microscopy the annulus and ligament were interrupted using 4-0 curved curette. 2. Kerrison punch was used to remove annulus, ligament, posterior osteophyte and a bony foraminotomy bilaterally. Has done until a nerve hook could be placed out each foramen to confirm lack of compression. The disc space was then sized an appropriately sized interbody devices were chosen and filled with local autograft bone. a 5 mm device was chosen for C5-6 and a 6 mm device for C4-5. These were then tamped in the interspace to 1-2 mm countersink. Harrison pins were removed as was the distraction. A 28 mm anterior cervical plate was chosen placed in position and secured using 614 x 4 mm anterior screws advanced into the locking mechanism the plate to hand tightness. Locking mechanism was engaged at each screw. A verifying x-rays obtained to verify good position of the instrumentation which was confirmed. The wound was then copiously irrigated with bacitracin irrigation all bleeding stopped with bipolar Bovie cautery and Gelfoam thrombin powder. Wound was then closed in layered fashion with 2-0 Vicryl interrupted sutures in the platysma muscle and in the dermis. The skin was closed with a running 4-0 Monocryl subcuticular stitch and dressed with Dermabond. The patient was allowed to wake up in the operating room was taken to the recovery room in stable condition. There were no immediate complications of this operation. All counts reported correct the end of the case. Blood loss was 50 cc. The patient was neurologically at her baseline postoperatively. CPT codes: 57025, 98539, 55615, 40775 x 2, 16871 x 2 Implants peek interbody devices, titanium plate and screws Estimated Blood Loss 50 Complications None Condition Stable Disposition PACU [facility] Billing Surgery - Charge Forward: Surgery Billing
--- NOTE | 2025-02-12 17:19 | ADMGEN ---
This patient, Cira Lock, was admitted to [address] [place] [address] Room 300-01. Patient/family oriented to hospital policies and general routines including ID bracelet, bed and alarms, visiting hours, pain management, procedures, bathroom and other care routines, personal items, smoking policy, room service/diet, and visiting hours. Information on how to activate the Rapid Response Team has been discussed. Patient/Family are encouraged to report perceived risks to care and to ask questions if they do not understand what they are told or what they should do.
[2025-02-12] MEDS: KCL 20 MEQ/D5/0.45% SOD CHL 1,000 ML 100 ML IV CONT (17:28)
[2025-02-12] MEDS: HYDROcodone/acetaminophen (*CRX) 10-325 MG TABLET 1 TAB PO (18:27)
[2025-02-12] MEDS: SERTRALINE HCL 50 MG TABLET PO (20:09)
[2025-02-12] MEDS: DOCUSATE SODIUM 100 MG CAPSULE PO (20:09)
[2025-02-12] MEDS: CYCLOBENZAPRINE HCL 10 MG TABLET PO (21:16)
[2025-02-13] MEDS: HYDROcodone/acetaminophen (*CRX) 5-325 MG TABLET 1 TAB PO ×2 (00:33→12:44)
[2025-02-13 03:47] VITALS: BP 136/64; PULSE 83; RESP 12; TEMP 36.7; O2SAT 94
[2025-02-13 07:35] VITALS: BP 139/67; PULSE 78; RESP 16; TEMP 36.2; O2SAT 94
[2025-02-13 08:15] VITALS: PULSE 82
[2025-02-13] MEDS: CHOLECALCIFEROL (VITAMIN D3) 25 MCG (1,000 UNITS) TABLET PO (08:15)
[2025-02-13] MEDS: EMPAGLIFLOZIN 10 MG TABLET PO (08:15)
[2025-02-13] MEDS: OMEGA 3 POLYUNSAT FATTY ACIDS 1 GM CAP PO (08:15)
[2025-02-13] MEDS: MULTIVITAMINS THERAPEUTIC TAB (*BKC) 1 TABLET PO (08:15)
[2025-02-13] MEDS: PRAVASTATIN SODIUM 20 MG TABLET 40 MG PO (08:15)
[2025-02-13] MEDS: DOCUSATE SODIUM 100 MG CAPSULE PO (08:16)
[2025-02-13] MEDS: INSULIN ASPART (*BKC) 100 UNITS/ML 10 UNITS SUB-Q ×2 (08:21→12:44)
[2025-02-13] MEDS: INSULIN GLARGINE (*BKC) 100 UNITS/ML 40 UNITS SUB-Q (08:22)
--- NOTE | 2025-02-13 11:06 | WPDNEUROSGPN ---
Progress Note: A&P Assessment and Plan (1) Status post cervical arthrodesis: Code(s): Z98.1 - Arthrodesis status Status: Acute Plan -Discharge home today -Activity and wound care instructions reviewed -Follow up with Dr. Borges in clinic as scheduled Subjective Date/time seen: 02/13/25 11:06 Interval history: Doing well today with good pain control. Ambulated in halls without difficulty. Swallowing without difficulty. She would like to go home today Review of Systems Review of Systems: All systems reviewed & are unremarkable except as noted in HPI and below Exam Narrative: AOx4 Incision c/d/i Moving all extremities with good strength Sensation intact to light touch Objective Data Vital Signs Vital Signs: Vital Signs - 24 hr 02/12/25 15:40 02/12/25 15:55 02/12/25 16:10 Temperature 97.0 F L Pulse Rate 81 80 83 Respiratory Rate 12 14 12 Blood Pressure 137/65 144/67 H 134/67 Pulse Oximetry 94 95 97 Oxygen Delivery Simple Face Mask Simple Face Mask Simple Face Mask Oxygen Flow Rate 6 6 6 02/12/25 16:20 02/12/25 16:25 02/12/25 16:40 Temperature Pulse Rate 86 85 Respiratory Rate 12 12 Blood Pressure 141/70 H 146/72 H Pulse Oximetry 90 92 Oxygen Delivery Room Air Nasal Cannula Nasal Cannula Oxygen Flow Rate 2 2 02/12/25 16:47 02/12/25 17:02 02/12/25 17:17 Temperature 96.3 F L 96.9 F L 96.9 F L Pulse Rate 58 L 88 88 Respiratory Rate 18 18 18 Blood Pressure 139/59 L 130/61 125/56 L Pulse Oximetry 95 92 92 Oxygen Delivery Oxygen Flow Rate 02/12/25 17:32 02/12/25 17:33 02/12/25 20:00 Temperature 96.9 F L Pulse Rate 86 Respiratory Rate 18 Blood Pressure 119/62 Pulse Oximetry 94 98 98 Oxygen Delivery Nasal Cannula Nasal Cannula Oxygen Flow Rate 2 2 02/12/25 23:20 02/13/25 03:47 02/13/25 07:35 Temperature 97.6 F 98.1 F 97.1 F L Pulse Rate 87 83 78 Respiratory Rate 16 12 16 Blood Pressure 145/58 H 136/64 139/67 Pulse Oximetry 91 94 94 Oxygen Delivery Oxygen Flow Rate 02/13/25 08:15 02/13/25 08:30 02/13/25 09:35 Temperature Pulse Rate 82 Respiratory Rate Blood Pressure Pulse Oximetry Oxygen Delivery Nasal Cannula Room Air Oxygen Flow Rate 1 Intake/Output Intake/Output: Intake & Output 02/10/25 02/11/25 02/12/25 02/13/25 23:59 23:59 23:59 23:59 Intake Total 400 240 Balance 400 240 Meds/Results Medications: Active Medications Generic Name Dose Route Start Last Admin Trade Name Freq PRN Reason Stop Dose Admin Hydrocodone Bitart/Acetaminophen 1 tab 02/12/25 16:47 02/13/25 00:33 Hydrocodone/Acetaminophen (*Crx) 5-325 Mg Tablet PO 1 tab Q4H PRN Administration Mild Pain (1-3) Hydrocodone Bitart/Acetaminophen 1 tab 02/12/25 16:47 02/12/25 18:27 Hydrocodone/Acetaminophen (*Crx) 10-325 Mg Tablet PO 1 tab Q4H PRN Administration Moderate Pain (4-6) Al Hydrox/Mg Hydrox/Simethicone 20 ml 02/12/25 16:47 Mag Hydrox/Al Hydrox/Simeth 30 Ml Udc PO Q4H PRN Indigestion/Heartburn Albuterol 1 puff 02/12/25 16:47 Albuterol Sulfate (*Sp) Aerosol 1 Puff INHALATION Q4HRT PRN shortness of breath or wheezing Amlodipine Besylate 10 mg 02/13/25 09:00 02/13/25 08:16 Amlodipine Besylate 10 Mg Tablet PO 10 mg DAILY LAURE Administration Bisacodyl 10 mg 02/12/25 16:47 Bisacodyl 10 Mg Suppository RECTAL DAILY PRN Constipation Carvedilol 25 mg 02/12/25 21:00 02/13/25 08:15 Carvedilol 25 Mg Tablet PO 25 mg Q12HR LAURE Administration Cyclobenzaprine HCl 10 mg 02/12/25 16:47 02/12/25 21:16 Cyclobenzaprine Hcl 10 Mg Tablet PO 10 mg TID PRN Administration Muscle Spasms Docusate Sodium 100 mg 02/12/25 21:00 02/13/25 08:16 Docusate Sodium 100 Mg Capsule PO 100 mg Q12HR LAURE Administration Empagliflozin 10 mg 02/13/25 09:00 02/13/25 08:15 Empagliflozin 10 Mg Tablet PO 10 mg DAILY LAURE Administration Fish Oil 1 gm 02/13/25 09:00 02/13/25 08:15 [place] 3 Polyunsat Fatty Acids 1 Gm Cap PO 1 gm QAM LAURE Administration Hydrochlorothiazide 12.5 mg 02/13/25 09:00 02/13/25 08:15 Hydrochlorothiazide 12.5 Mg Capsule PO 12.5 mg DAILY LAURE Administration Insulin Aspart 10 units 02/13/25 08:00 02/13/25 08:21 Insulin Aspart (*Bkc) 100 Units/Ml SUB-Q 10 units TIDWM LAURE Administration Insulin Glargine 40 units 02/13/25 09:00 02/13/25 08:22 Insulin Glargine (*Bkc) 100 Units/Ml SUB-Q 40 units QAM LAURE Administration Lisinopril 40 mg 02/12/25 21:00 02/13/25 08:15 Lisinopril 20 Mg Tablet PO 40 mg Q12HR LAURE Administration Metformin HCl 1,000 mg 02/12/25 17:00 02/13/25 08:15 Metformin Hcl 500 Mg Tablet PO 1,000 mg BID LAURE Administration Morphine Sulfate 2 mg 02/12/25 16:47 Morphine Sulfate (*Crx) 2 Mg/Ml Inj IV PUSH Q2H PRN Pain Rated 7-10 Multivitamins Therapeutic 1 tablet 02/13/25 09:00 02/13/25 08:15 Multivitamins Therapeutic Tab (*Bkc) PO 1 tablet DAILY LAURE Administration Ondansetron HCl 4 mg 02/12/25 16:47 Ondansetron Inj 4 Mg/2 Ml Vial IV PUSH Q8H PRN Nausea And Vomiting Pravastatin Sodium 40 mg 02/13/25 09:00 02/13/25 08:15 Pravastatin Sodium 20 Mg Tablet PO 40 mg DAILY LAURE Administration Senna/Docusate Sodium 1 tab 02/12/25 16:47 Senna/Docusate Sodium Tablet PO HS PRN Constipation Sertraline HCl 50 mg 02/12/25 16:47 02/12/25 20:09 Sertraline Hcl 50 Mg Tablet PO 50 mg HS LAURE Administration Trazodone HCl 50 mg 02/12/25 21:00 02/12/25 20:10 Trazodone Hcl 50 Mg Tablet PO 50 mg QHS LAURE Administration Triamcinolone Acetonide 1 applic 02/12/25 16:47 Triamcinolone Acet 0.5% Oint 15 Gm Tube TOPICAL Q12HR PRN vulvar irritation Vitamin D 25 mcg 02/12/25 17:00 02/13/25 08:15 Cholecalciferol (Vitamin D3) 25 Mcg (1,000 Units) Tablet PO 25 mcg BID LAURE Administration Labs Labs: Laboratory Results - last 24 hr 02/12/25 02/12/25 02/12/25 15:51 17:16 19:29 POC Capillary Glucose 152 H 169 H 247 H 02/13/25 02/13/25 03:53 08:21 POC Capillary Glucose 206 H 241 H
[2025-02-13 11:46] VITALS: BP 121/56; PULSE 72; RESP 20; TEMP 36.2; O2SAT 98
== END 2025-02-13 14:45 | disposition home or self-care (01) ==
LOC: ANHSURGERY 10:01 → ANH3MEDSUR 16:49
PROVIDERS: PCP Family Medicine; Visit Provider Neurological Surgery
PROC: (CPT 63030; principal; 2025-02-12 12:00)
DX: M54.12 Radiculopathy, cervical region (principal); M48.02 Spinal stenosis, cervical region; E78.5 Hyperlipidemia, unspecified; E11.9 Type 2 diabetes mellitus without complications; F32.A Depression, unspecified; M19.90 Unspecified osteoarthritis, unspecified site; E66.9 Obesity, unspecified; Z68.35 Body mass index [BMI] 35.0-35.9, adult; Z79.4 Long term (current) use of insulin; Z79.82 Long term (current) use of aspirin; Z79.84 Long term (current) use of oral hypoglycemic drugs; Z79.51 Long term (current) use of inhaled steroids; Z79.85 Long-term (current) use of injectable non-insulin antidiabetic drugs; Z98.890 Other specified postprocedural states; Z85.828 Personal history of other malignant neoplasm of skin; Z80.3 Family history of malignant neoplasm of breast
CPT/HCPCS: 22551; 22552; 22853 ×2; 20936; 82948; 97161; 97165; 99199; A9270; C1713; J0690; J1171; J1815; J2004; J2250; J3010; J3480; J7120

== ENCOUNTER 2025-04-01 07:16 | Outpatient (CLI) | payer MEDICARE, SELFPAY ==
--- NOTE | ~2025-04-01 | XR_ITS ---
XR_CERV2-3V_CR 04/01/2025 07:37 Indication: Arthrodesis status Procedure: 4 views cervical spine Comparison: No prior studies for comparison. Findings: There are changes of anterior cervical fusion and discectomy at C4-C6. Hardware intact. Normal cervical alignment. Vertebral body heights are maintained. No prevertebral soft tissue swelling. There is multilevel facet hypertrophy. Lung apices are normal. Impression: 1: Moderate cervical spondylosis with fusion at C4-6. Reviewed, dictated and finalized at location O. Impression: 1: Moderate cervical spondylosis with fusion at C4-6.
--- OUTSIDE RECORDS SUMMARY | 2025-04-01 07:26 | XMS_ITS | Clinical Summary ---
Author Organization [facility] Address [address] [place] [address] Care Team Providers Care Curriculum Advisory Teacher Name Role Phone Rigo Courtney MD Primary Care Provider [phone] Source Comments [facility],non-owned Affiliates and Associated Physician Practices is amultiple site organization consisting of ambulatory clinics and hospital sitesin [place], [place], [place] and [place]. This disclosure is being madepursuant to the Care Everywhere program and may not contain all information available regarding this patient. Last updated 18.[facility] Flipaste Allergies No known active allergies Social History [...] season) 2024 DEPRESSION SCREENING 08/08/2024 INFLUENZA VACCINE (#1) 2025 Respiratory Syncytial Virus (RSV) Vaccine Pt: [...] age to complete this topic Care Teams Curriculum Advisory Teacher Relationship Specialty Start Date End Date Rigo Courtney MD [address] [place] [id number] PCP - General Internal Medicine 11/26/16
--- OUTSIDE RECORDS SUMMARY | 2025-04-01 07:26 | XMS_ITS | Clinical Summary ---
Author Organization [facility] Address [facility] [place] [address] Care Team Providers Care Gas Transfer Operator Name Role Phone Unavailable Primary Care Provider [...]
== END 2025-04-01 07:17 | disposition home or self-care (01) ==
PROVIDERS: PCP Family Medicine; Visit Provider Neurological Surgery
DX: M47.812 Spondylosis without myelopathy or radiculopathy, cervical region (principal); Z98.1 Arthrodesis status
CPT/HCPCS: 72040

== ENCOUNTER 2025-05-27 07:38 | Outpatient (CLI) | payer MEDICARE, SELFPAY ==
--- NOTE | ~2025-05-27 | MM_ITS ---
EXAMINATION: MM screening chris BI w zamzam HISTORY: Screening TECHNIQUE: Craniocaudal and mediolateral oblique 3-D tomosynthesis images were obtained and synthetic 2-D images were generated. CAD analysis was submitted and interpreted. COMPARISON: Comparison to multiple prior studies sequentially, with oldest reviewed study dated , 02/26/2021 BREAST PARENCHYMAL COMPOSITION: There are scattered areas of fibroglandular density. FINDINGS: There is no evidence of suspicious mass, calcification, or architectural distortion to suggest malignancy in either breast. IMPRESSION: 1. No mammographic evidence of malignancy. 2. Recommend routine screening mammography in one year. BI-RADS Category 1: Negative Reviewed, dictated and finalized at location B.
== END 2025-05-27 07:39 | disposition home or self-care (01) ==
PROVIDERS: PCP Family Medicine; Visit Provider Nurse Practitioner Family
DX: Z12.31 Encounter for screening mammogram for malignant neoplasm of breast (principal)
CPT/HCPCS: 77063; 77067

== ENCOUNTER 2025-07-07 14:00 | Outpatient (CLI) | payer MEDICARE, SELFPAY ==
--- NOTE | ~2025-07-07 | MR_ITS ---
EXAMINATION: MR lumbar spine wo con DATE: 07/07/2025 15:03 INDICATION: Spinal stenosis, lumbar region without neurogenic claudication. TECHNIQUE: Magnetic resonance imaging (MRI) of the lumbar spine was performed without intravenous contrast. COMPARISON: Lumbar spine MRI 12/08/2023 FINDINGS: There is 9 degrees levocurvature of thoracolumbar spine. There are Schmorl's nodes at multiple levels. There is mildly decreased disc height at L2- L3, severely decreased disc height at L4-L5, and mildly decreased disc height at L5-S1. The distal spinal cord signal intensity is normal. The conus medullaris is at T12-L1. The following disc levels are specifically discussed: L1-L2: The disc does not extend beyond the endplate margin. There is severe bilateral facet joint osteoarthritis. There is mild bilateral neural foraminal stenosis. There is no central canal stenosis. L2-L3: The disc is bulging and has an annular fissure. There is severe bilateral facet joint osteoarthritis. There is mild bilateral neural foraminal stenosis. There is mild central canal stenosis. L3-L4: The disc is bulging. There is severe bilateral facet joint osteoarthritis. There is mild bilateral neural foraminal stenosis. There is no central canal stenosis. L4-L5: The disc is bulging and has an annular fissure. There is severe bilateral facet joint osteoarthritis. There is moderate bilateral neural foraminal stenosis. There is mild central canal stenosis. L5-S1: The disc is bulging and has an annular fissure. There is severe bilateral facet joint osteoarthritis. There is mild bilateral neural foraminal stenosis. There is mild central canal stenosis. IMPRESSION: 1. Severe lumbar spondylosis, stable from 12/08/2023. Reviewed, dictated and finalized at location E. NO MANAGER
--- OUTSIDE RECORDS SUMMARY | 2025-07-07 14:03 | XMS_ITS | Data Portability ---
Author Organization [facility], Main Office Address [address] [place] [address] Care Team Providers Care Civil Defense Director Name Role Phone TRACEY MCLEAN Primary Care Provider [phone] TRACEY MCLEAN Referring Provider [phone] Assessment Encounter Date Assessment Date Assessment LastModified by Organization Details LastModified Time 01/10/2023 01/10/2023 Patient returns knee pain right. She is ready to have surgery done. She has has pvib-zp-[id number] change in the right knee. She previous had and left knee replacement done by me and has done well. We discussed treatment options risks benefits limitations and alternatives in detail she agrees and understands. She has had it done on the left so she has been through it. We will proceed per her request. [email or web address] Not available 01/10/2023 10:40:12 03/08/2023 03/08/2023 Patient returns qgpf-[id number]-[id number] arthritis right knee. She has had previous [...] good no evidence of loosening or change. Not available 03/08/2023 14:45:39 Plan of Treatment Reminders Order Date Submit Date Provider Last Modified By Organization Details Last Modified Time Details Appointments None recorded. Lab None recorded. Referral None recorded. Procedures injection/a spiration joint/bursa (PROC) - in office procedure, administere d by provider 2022 023 [email or web address] In-Office Order, Internal Use Only DO Not Attach Compendium DO Not Attach Compendium, Do Not Delete/merge, [id number] 14:40:44 Surgeries None recorded. Imaging XR, knee 2022 023 [email or web address] [facility] [place], [address], [place], [address], 3 15:13:02 Medication Orders Kenalog 10 mg/mL suspension for injection 2022 023 [email or web address] [address] [id number], [address] [facility], [place], [place], [id number], 3 14:48:31 ropivacaine (PF) 5 mg/mL (0.5 %) injection solution 2022 023 [id number], [address] [facility], [place], [place], [id number], 3 14:48:31 diclofenac sodium 75 mg tablet,patrick yed release 2022 023 [id number], [address] [facility], [place], [place], [id number], 3 14:48:31 Patient TargetsNo targets recorded. Patient InstructionsNo instructions recorded. Reason for Referral None Reported. Results Created Date Observation Date Name Description Value Unit Range Abnormal Flag Note LastModifiedBy Organization Detail LastModifiedTime 01/15/20 22 XR, knee, 3 view No observ ation record ed. [id number] [facility] [place] [address], [place], [address], 10/06/2022 13:33:27 03/08/20 23 XR, knee No observ ation record ed. [email or web address] [facility] [place] [address], [place], [address], 03/08/2023 14:45:09 Result Notes None recorded. Problems Name Problem SNOMED Code Status Onset Date Resolution Date Notes Provider Name and Address Organization Details Recorded Time Osteoarthr itis of knee 485122454 Active Not Available [facility] 3 13:30:53 Knee pain Active Not Available [facility] 3 13:30:53 Osteoarthr itis 053953429 Active Not Available [facility] 3 13:30:53 Pain in limb 98913106 Active Not Available [facility] 3 13:30:54 History of total knee arthroplas ty 6511520777651 Active 2018 Not Available [facility] 3 13:30:53 Osteoarthr itis of left knee joint 6848595041149 09 Active 2021 Not Available [facility] 3 13:30:53 History of left total knee replacemen t 9528749240748 105 Active 2021 Not Available [facility] 3 13:30:53 Osteoarthr itis of right knee joint 2218092784180 00 Active 2021 Not Available [facility] 3 13:30:53 Pain in right sacroiliac joint 0504413800958 9107 Active 2021 Not Available [facility] 3 13:30:53 Low back pain 438794618 Active 2021 Not Available [facility] 3 13:30:53 Pain of bilateral knee joints 1059737138752 04 Active 2021 Not Available [facility] 3 13:30:53 Problem Notes None recorded. Procedures Surgical History Date Name Laterality Status Provider Name and Address Organization Details Recorded Time 3 Ortho - Cortisone Injection completed Anson Dumont MD [address] [place] [address], [facility] [address], [place], [address], [facility] 03/08/2023 14:43:41 Imaging Results None recorded. Procedure Notes None recorded. Medical Equipment None Reported. Allergies Allergen ID Allergen Name Allergen Category Reaction Reaction Severity Criticality Documentation Date Start Date Code Code System Note Provider Name and Address Organization Details Recorded Time 27541 omeprazol e medicatio n other Not available Not available 10/06/2022 7646 RxNorm Not Available [facility] 3 13:33:23 89691 naproxen medicatio n other Not available Not available 10/06/2022 7258 RxNorm Not Available [facility] 3 13:33:23 43878 losartan medicatio n rash Not available Not available 10/06/2022 65701 RxNorm Not Available [facility] 3 13:33:23 82078 amlodipin e / valsartan medicatio n rash Not available Not available 10/06/2022 75679 5 RxNorm Not Available [facility] 3 13:33:24 66474 adhesive tape environme nt,medica tion Not available Not available Not available 10/06/2022 Not Available [facility] 3 13:33:24 Medications Name Sig Start Date [...] 20 mg by injection route. 2022 active [facility]: 0003- [phone]- 20 Not Available Not [...] administe red by the provider 01/14 completed [facility]: [phone]- [phone] Not Available Not [...] 20 mg by injection route. 2022 active [facility] [address]287 -[phone] Not Available Not Available Not [...] Not Available Not Available Not Available Fluvirin 4541-3171 (PF) 45 mcg(15 mcg x3)/0.5 mL intramuscul [...] Updated DateTime 01/10/2023 162.56 cm 36 kg/m2 15284.4 g ANA LUISA León [place] [facility] 01/10/2023 09:42:32 Date Recorded Body mass index (BMI) Body height Body weight Provider Name and Address Organization Details Last Updated DateTime 01/14/2022 36 kg/m2 162.56 cm 02408.4 g Not Available [facility] 10/06/2022 13:30:10 Date Recorded Body mass index (BMI) Body height Body weight Provider Name and Address Organization Details Last Updated DateTime 02/11/2022 20.8 kg/m2 162.56 cm 35595.68 g Not Available [facility] 10/06/2022 13:30:10 Date Recorded Body height Body mass index (BMI) Body weight Provider Name and Address Organization Details Last Updated DateTime 03/08/2023 160.02 cm 37.6 kg/m2 78454.58 g ANA LUISA León [place] [facility] 03/08/2023 14:24:15 Date Recorded Body height Provider Name an d Address Organization Details Last Updated DateTime 05/17/2022 162.56 cm Not Available [facility] 13:30:09 Social History None recorded. Functional Status Question Answer Note LastModified by Organizat ion Details LastModified Time What is your level of alcohol consumption? None [id number] Information not available 10/06/2022 Mental Status None recorded. Family History Relationship Description Onset Age of this Age Resolved Age Notes LastModified by Organization Details LastModified Time Maternal Grandfather Heart disease [id number] Not available 10/06/2022 13:30:05 Sister Family history of malignant neoplasm [id number] Not available 10/06/2022 13:30:05 Father Hypertensive disorder [id number] Not available 10/06/2022 13:30:06 Father Diabetes mellitus [id number] Not available 10/06/2022 13:30:06 Mother Disorder of lung [id number] Not available 10/06/2022 13:30:06 Medical History Condition Response DIABETES, TYPE Y HYPERTENSION Y CANCER: SPECIFY Y Gynecological HistoryNo gynecological history recorded. Obstetrics History GPAL:G 0 P 0 0 0 0 Past Encounters Encounter ID Performer Location Encounter Start Date Encounter Closed Date Diagnosis/Indication Diagnosis SNOMED-CT Code Diagnosis ICD10 Code Diagnosis IMO Codes Diagnosis Note [id number] GWEN Hastings [facility] [place] [address] [place] [address] 01/22/2021 00:00:00 01/22/2021 12:26:22 [id number] Anson Dumont MD [facility] [place] [address] [place] [address] 01/14/2022 00:00:00 01/14/2022 10:07:40 [id number] Anson Dumont MD [facility] [place] [address] [place], [place] [address] 02/11/2022 00:00:00 02/11/2022 09:14:41 [id number] Anson Dumont MD [facility] [place] [address] [place], [place] [address] 05/17/2022 00:00:00 05/17/2022 09:59:06 [id number] Anson Dumont MD [facility] [place] [address] [place], [place] [address] 01/10/2023 09:10:15 01/10/2023 10:38:17 Pain in right sacroiliac joint 2268798772 4197080 M53.3 Osteoarthr itis of right knee joint 1085084182 97471 M17.11 [id number] Anson Dumont MD [facility] [place] [address] [place] [place], [place] [address] 03/08/2023 14:18:38 03/08/2023 15:13:02 Pain in right sacroiliac joint 6148424332 6669581 M53.3 Osteoarthr itis of right knee joint 6427999760 25301 M17.11 Health Concerns Section Related Observation LastModified by Organization Detai ls LastModified Time None Recorded Concern Status LastModified by Organization Details LastModified Time None Recorded Advance Directives Directive None Recorded Payers Insurance Date Sequence Insurance Name Policy Number Policy Peters Covered Member ID Peters Member ID Guarantor Name 03/14/[address] [facility] (MEDICARE REPLACEMENT/AD VANTAGE - HMO) [id number] Cira Myrick [id number] Cira Myrick 03/04/2023 2 [place] Cira Myrick [id number] Cira Myrick 01/06/2023 1 [facility] - DOS ON OR AFTER 21 (MEDICAID REPLACEMENT - HMO) Cira Myrick [id number] Cira Myrick Notes Date Note Type Note Provider Name and Address Organization Details Recorded Time 01/10/2023 text/html KneeReported by PatientHPIFor associated symptoms, patient reportsswelling,warm th, andgrindingbut reportsno weakness,no numbness,no tingling,no redness,no ecchymosis,no catching/locking,no popping/clicking,no buckling,no instability,no radiation down leg,no drainage,no fever,no chills,no weight loss, andno change in bowel/bladder habits. For quality, patient reportsaching,throbb ing, anddull. For severity, patient reportsmoderate. For duration, patient reportscontinuous since onset. For timing, patient reportschronic. For alleviating factors, patient reportssitting,lying down,rest, andelevation. For aggravating factors, patient reportsbending/squat tingandweightbearing . Anson Dumont MD [address], [place], [address], [facility] [employer] [facility] 01/10/2023 10:40:28 03/08/2023 text/html Patient returns knee pain right. She has an arthritic right knee and is having difficulty getting around. We discussed possible surgery before she is scheduled for later in the year. Anson Dumont MD [address], [place], [address], [facility] 03/08/2023 14:51:27 OBGyn Episode No OBEpisode recorded.
--- OUTSIDE RECORDS SUMMARY | 2025-07-07 14:03 | XMS_ITS | Data Portability ---
Author Organization [facility] Address [address] [place] [address] Assessment Encounter Date Assessment Date Assessment LastModified [...] and labor atory findi ngs. See https ://[employer]/s ites/ defau lt/fi les/2 018-0 - 14860 _002_ 01.pd f for sumi llamas. Test perfo rmed by [facility] d/b/a [employer], [address] [facility], [place] [address] , Ana Baez ra, DO, Labor atory [facility]. HPV High Risk *HPV NOT DETEC DANA [...] and labor atory findi ngs. See https ://[employer]/s ites/ defau lt/fi les/2 018-0 3- 93300 _002_ 01.pd f for [facility] infor isabelle llamas. Test perfo rmed by [facility], d/b/a [employer], [address], [place] [address] , Ana Baez ra, DO, Labor atory [facility] [facility]. End of Repor t Techn ical servi clay provi ded by [facility], d/b/a [employer], [address] [place] [address] Marvel Oleary MD, [facility]. Case revie wed and diagn osis rende red at [facility], d/b/a [facility], [address] [place] [address] Marevl Oleary MD, [facility]. CONFI DENTI AL Not Available [facility] ([facility]) [address] [place] [address], [place], [address], 08/14/2020 11:15:59 08/12/19 21 08/13/2020 HPV DNA, high- risk HPV high risk NOT DETECT ED normal Not Available [facility] ([facility]) [address] [place] [address], [place], [address], 08/14/2020 11:15:59 Result Notes None recorded. Problems [...] Not Available [facility] 0 19:03:51 Breast lump 60494224 Active 2011 Lump or mass in breast;Pr actice ID: 0001 Not Available [facility] 0 19:03:51 Vaginitis and vulvovagi nitis Active 2011 Vaginitis and vulvovagi nitis, unspecifi ed;Practi ce ID: 0001 Not Available [facility] 0 19:03:51 Dyspareun ia 72089114 Active 2011 Dyspareun ia;Practi ce ID: 0001 Not Available [facility] 0 19:03:51 Adult health examinati on Active 2011 Routine general medical examinati on at a health care facility; Practice ID: 0001 Not Available [facility] 0 19:03:51 Specializ ed medical examinati on Active 2011 Routine gynecolog ical examinati on;Practi ce ID: 0001 Not Available [facility] 0 19:03:52 Health condition feared but not present [id number] 9109 Active 2013 Person with feared complaint in whom no diagnosis was made;Prac osvaldo ID: 0001 Not Available [facility] 0 19:03:52 Overweigh t [id number] Active 2013 Overweigh t;Practic e ID: 0001 Not Available [facility] 0 19:03:52 Glycosuri a 63428747 Active 2013 Glycosuri a;Practic e ID: 0001 Not Available [facility] 0 19:03:[address] Concept Active 2014 Encntr for general adult medical exam w/o abnormal findings; Practice ID: 0001 Not Available [facility] 0 19:03:[address] Concept Active 2014 Encntr for advertising vice president exam (general) (routine) w/o abn findings; Recorded Elsewhere : No Locati on: [facility] So urce: EHR Chron ic: N Practic e ID: 0001 Bill able Time: 08:30:00 AM Not Available [facility] 0 19:03:53 Body mass index 30+ - obesity 486928123 Active 2017 Body mass index (BMI) 33.0-33.9 , adult;Rec orded Elsewhere : No Locati on: [facility] So urce: EHR Chron ic: N Practic e ID: 0001 Bill able Time: 01:30:00 PM Not Available [facility] 0 19:03:53 Problem Notes None recorded. Medical Equipment None Reported. Allergies Allergen ID Allergen Name Allergen Category Reaction Reaction Severity Criticality Documentation Date Start Date Code Code System Note Provider Name and Address Organization Details Recorded Time 9789 naproxen medicatio n Not available Not available Not available 07/25/2020 7258 RxNorm Comme nt: [facility]; Not Available [facility] 0 14:14:44 9795 omeprazol e medicatio n Not available Not available Not available 07/25/2020 7646 RxNorm Comme nt: [facility]at [facility]; Not Available [facility] 0 14:14:44 9800 losartan medicatio n Not available Not available Not available 07/25/2020 85028 RxNorm Comme nt: [facility]at [facility]; Not Available [facility] 0 14:14:44 9807 valsartan medicatio n Not available Not available Not available 07/25/2020 69581 RxNorm Comme nt: [facility]at [facility] Cau sativ e Agent : Exfor ge; Not Available [facility] 0 14:14:44 9810 epinephri ne medicatio n Not available Not available Not available 07/25/2020 3992 RxNorm React ion: dizzy ; Comme nt: [facility]at [facility]; Not Available [facility] 0 14:14:44 9817 hydrochlo rothiazid e medicatio n Not available Not available Not available 07/25/2020 5487 RxNorm Comme nt: [facility]at [facility] Cau sativ e Agent : Exfor ge HCT; Not Available [facility] 0 14:14:44 9823 adhesive tape environme nt,medica tion Not available Not available Not available 07/25/2020 Comme nt: [facility]at [facility]; Not Available [facility] 0 14:14:44 Medications Name Sig Start Date Stop Date Status Note LastModified by Organization Details LastModified Time multivita min tablet active Prescrib ed Elsewher e: Yes Loca tion: Sergio rascon [facility] odify By: [email or web address] Encount er DateTime : 02/03/20 19 10:45:00 AM Not Available Not Available Not Available carvedilo l 12.5 mg tablet take 1 tablet by oral route 2 times every day with food 2017 active Prescrib ed Elsewher e: Yes Loca tion: Sergio rascon [facility] odify By: ruby diamonduntla nena DateTime : 01/18/20 18 01:30:00 PM Not Available Not Available Not Available clonidine 0.1 mg/24 hr weekly transderm al patch apply 1 patch by transder mal route every week 06/11 completed Prescrib ed Elsewher e: Yes Loca tion: Sergio rascon [facility] odify By: allen diamonduntla nena DateTime : 12/09/19 12 11:45:00 AM Not Available Not Available Not Available metformin 850 mg tablet take 1 tablet by oral route 2 times every day with morning and evening meals active Prescrib ed Elsewher e: Yes Loca tion: Merle tarah [facility] odify By: suzy wakefield DateTime : 06/08/20 12 08:30:00 AM Not Available Not Available Not Available amlodipin e 2.5 mg tablet take 1 tablet by oral route every day 2016 active Prescrib ed Elsewher e: Yes Loca tion: Sergio rascon [facility] odify By: ruby coyle DateTime : 11/10/19 17 08:30:00 AM Not Available Not Available Not Available glimepiri de 1 mg tablet take 1 tablet by oral route every day 06/11 completed Prescrib ed Elsewher e: Yes Loca tion: Sergio rascon [facility] odify By: allen coyle DateTime : 05/13/20 11 11:30:00 AM Not Available Not Available Not Available Amaryl 4 mg tablet take 1 tablet by oral route every day 06/19 completed Prescrib ed Elsewher e: Yes Loca tion: Sergio rascon [facility] odify By: harry Tarah ncounter DateTime : 05/11/20 11 09:55:26 AM Not Available Not Available Not Available aspirin 500 mg tablet take 2 tablet by oral route every 6 hours as needed active Prescrib ed Elsewher e: Yes Loca tion: Sergio rascon [facility] odify By: suzy Jerome ter DateTime : 06/08/20 12 08:30:00 AM Not Available Not Available Not Available cefadroxi l 500 mg capsule take 2 capsule (1G) by oral route every day 06/11 completed Prescrib ed Elsewher e: No Locat ion: Sergio rascon [facility] odify By: allen Tarah ncounter DateTime : 02/03/20 12 08:38:23 AM Not Available Not Available Not Available Vitamin D3 10 mcg (400 unit) tablet active Prescrib ed Elsewher e: Yes Loca tion: Sergio rascon [facility] odify By: [email or web address] Encount er DateTime : 02/03/20 19 10:45:00 AM Not Available Not Available Not Available pravastat in 10 mg tablet take 1 tablet by oral route every day active Prescrib ed Elsewher e: Yes Loca tion: Sergio rascon [facility] odify By: kae Alexander r DateTime : 05/11/20 11 09:55:26 AM Not Available Not Available Not Available Norvasc 5 mg tablet take 1 tablet by oral route every day 02/02 completed Prescrib ed Elsewher e: Yes Loca tion: Sergio rascon [facility] odify By: [email or web address] Encount er DateTime : 06/08/20 12 08:30:00 AM Not Available Not Available Not Available hydrochlo rothiazid e 12.5 mg capsule take 2 capsule by oral route every day active Prescrib ed Elsewher e: Yes Loca tion: Sergio rascon [facility] odify By: kae Alexander r DateTime : 05/11/20 11 09:55:26 AM Not Available Not Available Not Available Kibler's wort 150 mg capsule active Prescrib ed Elsewher e: Yes Loca tion: Sergio rascon [facility] odify By: suzy Jerome ter DateTime : 05/13/20 11 11:30:00 AM Not Available Not Available Not Available Vitamin B-6 50 mg tablet active Prescrib ed Elsewher e: Yes Loca tion: Sergio rascon [facility] odify By: [email or web address] Encount er DateTime : 02/03/20 19 10:45:00 AM Not Available Not Available Not Available Vitamin D2 1,250 mcg (50,000 unit) capsule take 1 capsule by oral route every week for 8 weeks. 02/02 completed Prescrib ed Elsewher e: No Locat ion: Sergio rascon [facility] odify By: [email or web address] Encount er DateTime : 07/02/20 15 04:48:17 PM Not Available Not Available Not Available Terazol 7 0.4 % vaginal cream insert 1 applicat orful by vaginal route every day for 7 days at bedtime 02/01 completed Prescrib ed Elsewher e: No [facility] odify By: ines Jerome ter DateTime : 01/27/20 12 11:00:00 AM Not Available Not Available Not Available lisinopri l 2.5 mg tablet take 1 tablet by oral route every day active Prescrib ed Elsewher e: Yes Loca tion: Sergio rascon [facility] odify By: suzy Jerome ter DateTime : 05/13/20 11 11:30:00 AM Not Available Not Available Not Available Stanback Headache Powder 650 mg oral packet 07/30 completed Prescrib ed Elsewher e: Yes Loca tion: Sergio rascon [facility] odify By: ruby Rascon ncounter DateTime : 12/09/19 12 11:45:00 AM Not Available Not Available Not Available Avandamet 2 mg-1,000 mg tablet take 1 tablet by oral route 2 times every day with meals 06/11 completed Prescrib ed Elsewher e: Yes Loca tion: Sergio rascon [facility] odify By: allen Rascon ncounter DateTime : 05/11/20 11 09:55:26 AM Not Available Not Available Not Available metoprolo l tartrate 25 mg tablet take 1 tablet by oral route 2 times every day 06/08 completed Prescrib ed Elsewher e: Yes Loca tion: Sergio rascon [facility] odify By: suzy wakefield DateTime : 05/13/20 11 11:30:00 AM Not Available Not Available Not Available Lantus U-100 Insulin 100 unit/mL subcutane ous cartridge inject by subcutan eous route as per insulin protocol active Prescrib ed Elsewher e: Yes Loca tion: Sergio rascon [facility] odify By: suzy Jerome ter DateTime : 06/08/20 12 08:30:00 AM Not Available Not Available Not Available Apidra U-100 Insulin 100 unit/mL subcutane ous solution inject by subcutan eous route as per insulin sliding scale protocol active Prescrib ed Elsewher e: Yes Loca tion: Sergio rascon [facility] odify By: donald wakefield DateTime : 01/03/20 14 10:00:00 AM Not Available Not Available Not Available Januvia 25 mg tablet 06/08 completed Prescrib ed Elsewher e: Yes Loca tion: Sergio rascon [facility] odify By: suzy wakefield DateTime : 05/11/20 11 09:55:26 AM Not Available Not Available Not Available Tekturna 150 mg tablet take 1 tablet by oral route every day 06/08 completed Prescrib ed Elsewher e: Yes Loca tion: Sergio rascon [facility] odify By: suzy wakefield DateTime : 05/11/20 11 09:55:26 AM Not Available Not Available Not Available Bystolic 2.5 mg tablet take 2 tablet by oral route every day 11/09 completed Prescrib ed Elsewher e: Yes Loca tion: Sergio rascon [facility] odify By: ruby Rascon ncounter DateTime : 12/09/19 12 11:45:00 AM Not Available Not Available Not Available omega 3-dha-epa -fish oil 180 mg-270 mg capsule active Prescrib ed Elsewher e: Yes Loca tion: Sergio rascon [facility] odify By: suzy wakefield DateTime : 05/13/20 11 11:30:00 AM Not Available Not Available Not Available Vitals Date Recorded Body height Body mass index (BMI) Body weight Systolic And Diastolic Provider Name and Address Organization Details Last Updated DateTime 08/12/2020 162.56 cm 34.8 kg/m2 51592.25 g 96/62 mm[Hg] Lauren Oviedo [facility] 08/12/2020 10:05:12 Social History None recorded. [...] ICD10 Code Diagnosis IMO Codes Diagnosis Note [id number] Madeline Moore , [facility] [address] [address] 08/12/2020 09:55:00 08/12/2020 11:51:27 Gynecologic examination 03543800 Z01.419 Take Calcium with Vitamin D 12-1500mg daily. Do monthly self breast exams. It is advised to get annual flu shot in the fall and she could obtain at [facility] or [facility] care clinic. If you haven't received the [...] guidelines pap/hpv. 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 Mammo ordered PCP [facility] Health Concerns Section Related Observation LastModified by Organization Tami issa LastModified Time None Recorded Concern Status LastModified by Organization Details LastModified Time None Recorded Advance Directives Directive None Recorded Payers Insurance Date Sequence Insurance Name Policy Number Policy Peters Covered Member ID Peters Member ID Guarantor Name 12/30/2021 1 [facility] - DOS PRIOR TO 2021 (MEDICAID REPLACEMENT - HMO) Cira Cintron Debourge [id number] Cira Cintron Debourge 12/30/2021 1 [facility] - DOS ON OR AFTER 21 (MEDICAID REPLACEMENT - HMO) Cira Cintron Debourge [id number] Cira Cintron Debourge Notes Date Note Type Note Provider Name and Address Organization Details Recorded Time text/html Annual GYNReported by PatientHistoryFor history, patient reportsno gynecologic complaints.Genitourina ry symptomsFor urinary symptoms, patient reportsno hematuriaandno incontinence. For vulva, patient reportsno genital lesion. For vagina, patient reportsnormal vaginal discharge. For menstrual cycle, (postmenopause).Breast symptomsFor breast, patient reportsno breast pain,no breast lump, andno nipple discharge.Endocrine symptomsFor sexual complaints, patient reportsno sexual complaints,no pain during intercourse, andnormal libido. For menopausal symptoms, patient reportsno menopausal symptomsandnormal vaginal lubrication.Psychologi ronny symptomsFor psychological symptoms, patient reportsno depression,no anxiety, andno pmdd.Preventative measuresFor preventive measures, patient reportsencourage self breast examination,encourage regular exercise,encourage no tobacco use,encourage regular mammograms starting age 40,needs to schedule mammogram, andup to date on colonoscopy screening(dexa ordered pcp). Madeline Moore, NP-BC [address] [place], [address], [facility] 08/12/2020 10:33:02 OBGyn Episode No OBEpisode recorded.
== END 2025-07-07 14:01 | disposition home or self-care (01) ==
PROVIDERS: PCP Family Medicine; Visit Provider Neurological Surgery
DX: M48.061 Spinal stenosis, lumbar region without neurogenic claudication (principal); M51.26 Other intervertebral disc displacement, lumbar region; M47.896 Other spondylosis, lumbar region
CPT/HCPCS: 72148